=== PATIENT | male | born 1950 | race African-American/Black ===

== ENCOUNTER 2016-05-13 16:12 | Emergency (ER) | payer MEDICAID ==
[~2016-05-13] VITALS: Ht 180.3 cm; Wt 100.0 kg
[~2016-05-13 16:12] MED LIST: FLUD.1 PO; LEVO.15 PO; RISP4TAB41 PO
[2016-05-13 16:13] VITALS: BP 135/68; PULSE 96; RESP 15; TEMP 98.1; O2SAT 95
[2016-05-13] MEDS ORDERED: AMOX875T PO (16:52)
--- NOTE | 2016-05-13 16:53 | PD ---
HPI Chief Complaint: ENT Complaint Time Seen by Provider: 16:52 Travel History International Travel<30 days: No Contact w/Intl Traveler<30days: No Traveled to known affect area: No History of Present Illness HPI Patient is a 65-year-old male with chief complaint of runny nose, scratchy throat and globus sensation. He states that this began today. He states that he has runny nose and postnasal drip and physically has to clear his throat a lot. He denies difficulty swallowing or breathing or pain. He states that he feels like he has to cough up mucus up but frequently cannot get any to come out. He denies any masses in his throat or neck. He denies any chest pain, shortness of breath or wheezing. He denies stridor. He denies fever. Denies eye and ear symptoms. He denies myalgias and abdominal pain. Has a history of brain tumor resection in 2096, and full remission. PFSH Past Medical History Arthritis: Yes Asthma: No Autoimmune Disease: No Blood Disorders: No Anxiety: Yes Depression: Yes Heart Rhythm Problems: No Cancer: Yes (BRAIN TUMOR REMVD 97) Cardiac Catheterization: No Cardiovascular Problems: Yes (pacemaker) High Cholesterol: No Chemotherapy: No Chest Pain: No Congestive Heart Failure: No COPD: No Cerebrovascular Accident: Yes Diabetes: Yes Patient Takes Glucophage: No Diminished Hearing: No Endocrine: No GERD: No Glaucoma: No Genitourinary: No Headaches: Yes Hepatitis: No Hiatal Hernia: No Hypertension: No Immune Disorder: No Implanted Vascular Access Dvce: Yes Kidney Stones: No Musculoskeletal: No Neurologic: Yes Psychiatric: Yes Reproductive: No Respiratory: No Immunizations Current: Yes Migraines: No Myocardial Infarction: No Radiation Therapy: Yes Renal Failure: No Schizophrenia: Yes Seizures: No Sickle Cell Disease: No Sleep Apnea: No Thyroid Disease: No Ulcer: Yes PNEUMOCCOCAL Vaccine (Year): 3 Past Surgical History Abdominal Surgery: No AICD: No Appendectomy: Yes Arteriovenous Shunt: No Cardiac Surgery: Yes (PACEMAKER) Coronary Artery Bypass Graft: No Ear Surgery: No Endocrine Surgery: No Eye Surgery: No Genitourinary Surgery: No Gynecologic Surgery: No Insulin Pump: No Neurologic Surgery: Yes (TUMOR BRAIN) Oral Surgery: No Pacemaker: Yes Thoracic Surgery: No Tonsillectomy: Yes Family History Family Myocardial Infarction: Yes Social History Alcohol Use: No Tobacco Use: No Substance Use: No (former crack user) Allergies-Medications (Allergen,Severity, Reaction): Coded Allergies: MRI PRECAUTION (Verified Adverse Reaction, Severe, NON MRI CONDITIONAL PACEMAKER 08/24/15 KMD, 05/13/16) MIAH SAMUEL DR PACEMAKER IMPLANTED 12/15/2008 Reported Meds & Prescriptions Reported Meds & Active Scripts Active Amoxicillin 875 Mg Tab 875 Mg PO BID Synthroid (Levothyroxine Sodium) 150 Mcg Tab 150 Mcg PO DAILY@0600 Fludrocortisone (Fludrocortisone Acetate) 0.1 Mg Tab 0.2 Mg PO DAILY Reported Risperdal (Risperidone) 4 Mg Tab 2 Mg PO HS Review of Systems Except as stated in HPI: all other systems reviewed are Neg Physical Exam Narrative GENERAL: Well-developed and well-nourished adult male in no acute distress. SKIN: Warm and dry. Good turgor without tenting. HEAD: Normocephalic and atraumatic. EYES: PERRL bilaterally, 5mm. EOMI bilaterally. No injection or icterus present. No proptosis. Lids without edema or erythema. ENT: Nasal mucosa erythematous and edematous with moderate amount of clear discharge, septum intact and midline. Buccal mucosa pink and moist. Oropharynx free of erythema, tonsillar hypertrophy, masses, swelling, asymmetry and exudates. Uvula midline and airway patent. NECK: Supple, no midline tenderness, crepitus or step-offs. No meningeal signs. No masses or induration palpated. Trachea midline, no JVD. No cervical or facial lymphadenopathy. CARDIOVASCULAR: Regular rate and rhythm without murmurs, rubs, clicks or gallops. Radial pulses 2+ bilaterally. RESPIRATORY: Clear to auscultation bilaterally with symmetrical rise and fall, no distress or use of accessory muscles. Speaks in full sentences. No stridor , tripoding or drooling. GASTROINTESTINAL: Non-tender, non-distended. Normal bowel sounds all 4 quadrants. No masses or organomegaly present. MUSCULOSKELETAL: Patient freely moving all four extremities spontaneously. Extremities without clubbing, cyanosis, or edema. No obvious deformities. NEUROLOGIC: CN II-XII grossly intact. Awake and alert. Motor grossly within normal limits. Normal speech. PSYCHIATRIC: Appropriate mood and affect; insight and judgment normal. Data Data Last Documented VS Vital Signs Date Time Temp Pulse Resp B/P Pulse Ox O2 Delivery O2 Flow Rate FiO2 05/13/16 16:13 98.1 96 15 135/68 95 [facility] Medical Decision Making Medical Screen Exam Complete: Yes Emergency Medical Condition: Yes Differential Diagnosis Rhinitis versus pharyngitis versus laryngitis Narrative Course Patient is a 65-year-old male presenting with globus sensation in and need to clear his throat frequently along with rhinorrhea, post nasal drip. This began this morning. As small amount of clear to white amounts are spit up. He feels like he has been able to fully clear. He denies difficulty swallowing or breathing however. He also has runny nose, postnasal drip and scratchy throat. On exam the oropharynx is unremarkable. He has no stridor and can clear her secretions. He is afebrile nontoxic appearing. Has no evidence of any mass on his neck at this time. At this time this is likely rhinitis and pharyngitis with resultant postnasal drip. We'll give patient amoxicillin and recommend OTC Mucinex.See discharge paperwork for further instructions. The plan was discussed with the patient who acknowledged their understanding and agreement. Reinforced the follow-up with primary care is critically important. Patient instructed on emergent conditions that should prompt return to ED. Diagnosis Primary Impression: Rhinitis Qualified Code: J31.0 - Rhinitis, unspecified type Additional Impression: Pharyngitis Qualified Code: J02.9 - Pharyngitis, unspecified etiology Patient Instructions: General Instructions Additional Instructions: Take medications as prescribed Recommend drinking lots of fluids to stay well-hydrated Recommend OTC Mucinex to help clear secretions Follow-up with your PCP tomorrow Return to the ED for any acute worsening of symptoms Med/Other Pt SpecificInfo: Prescription(s) given Scripts Amoxicillin 875 Mg Lob457 Mg PO BID #20 TAB Prov:Adi Ramsay MD 05/13/16 Disposition: 01 DISCHARGE HOME Condition: Stable Gurpreet Denton III May 13, 2016 16:53
== END 2016-05-13 17:54 | disposition home or self-care (01) ==
LOC: NEPB 16:12
DX: J31.0 Chronic rhinitis (principal); J02.9 Acute pharyngitis, unspecified
CPT/HCPCS: 99282

== ENCOUNTER 2016-07-03 11:06 | Observation (INO) | payer MEDICAID ==
[~2016-07-03] VITALS: Ht 177.8 cm; Wt 89.0 kg
[2016-07-03] VITALS (9 sets, daily range): BP systolic 73–132; BP diastolic 47–78; PULSE 61–88; RESP 14–18; TEMP 95.3–98.4; O2SAT 96–99
[~2016-07-03 11:06] MED LIST changes: +AMOX875T PO
--- NOTE | 2016-07-03 13:17 | PD ---
HPI Chief Complaint: Pain: Acute or Chronic Time Seen by Provider: 13:05 Travel History International Travel<30 days: No Contact w/Intl Traveler<30days: No Traveled to known affect area: No History of Present Illness HPI 65-year-old male complains of right-sided chest pain and left knee pain. Patient states that he started having pain and swelling left knee. The past 2 weeks. Patient states the pain is worse today. Patient denies any injury to left knee. Patient has history of arthritis left knee in the past. Patient started having left-sided chest discomfort this morning. Patient states that the chest pain as tightness intermittent overlies left chest occasionally radiation to left-sided neck. Patient denies any coughing congestion fever chills. Patient states that he has some palpitation this morning. Patient denies any diaphoresis. Patient has history of pacemaker placement, borderline diabetes, hypothyroidism. Patient has family history of cardiac disease. Patient has history of schizophrenia, bradycardia, orthostatic hypotension and Pituitary adenoma. PFSH Past Medical History Arthritis: Yes Asthma: No Autoimmune Disease: No Blood Disorders: No Anxiety: Yes Depression: Yes Heart Rhythm Problems: No Cancer: Yes (BRAIN TUMOR REMVD 97) Cardiac Catheterization: No Cardiovascular Problems: Yes (pacemaker) High Cholesterol: No Chemotherapy: No Chest Pain: Yes Congestive Heart Failure: No COPD: No Cerebrovascular Accident: Yes Diabetes: Yes Diminished Hearing: No Endocrine: No GERD: No Glaucoma: No Genitourinary: No Headaches: Yes Hepatitis: No Hiatal Hernia: No Hypertension: No Immune Disorder: No Implanted Vascular Access Dvce: Yes Kidney Stones: No Musculoskeletal: No Neurologic: Yes Psychiatric: Yes Reproductive: No Respiratory: No Immunizations Current: Yes Migraines: No Myocardial Infarction: No Radiation Therapy: Yes Renal Failure: No Schizophrenia: Yes Seizures: No Sickle Cell Disease: No Sleep Apnea: No Thyroid Disease: No Ulcer: Yes PNEUMOCCOCAL Vaccine (Year): 3 Past Surgical History Abdominal Surgery: No AICD: No Appendectomy: Yes Arteriovenous Shunt: No Cardiac Surgery: Yes (PACEMAKER) Coronary Artery Bypass Graft: No Ear Surgery: No Endocrine Surgery: No Eye Surgery: No Genitourinary Surgery: No Gynecologic Surgery: No Insulin Pump: No Neurologic Surgery: Yes (TUMOR BRAIN) Oral Surgery: No Pacemaker: Yes Thoracic Surgery: No Tonsillectomy: Yes Social History Alcohol Use: No Tobacco Use: No Substance Use: No Allergies-Medications (Allergen,Severity, Reaction): Coded Allergies: MRI PRECAUTION (Verified Adverse Reaction, Severe, NON MRI CONDITIONAL PACEMAKER 08/24/15 KMD, 07/03/16) MIAH SAMUEL DR PACEMAKER IMPLANTED 12/15/2008 Reported Meds & Prescriptions Reported Meds & Active Scripts Active Synthroid (Levothyroxine Sodium) 150 Mcg Tab 150 Mcg PO DAILY@0600 Fludrocortisone (Fludrocortisone Acetate) 0.1 Mg Tab 0.2 Mg PO DAILY Reported Risperdal (Risperidone) 4 Mg Tab 2 Mg PO HS Review of Systems General / Constitutional: No: Fever Eyes: No: Visual changes HENT: No: Headaches Cardiovascular: Positive: Chest Pain or Discomfort Respiratory: No: Shortness of Breath Gastrointestinal: No: Abdominal Pain Genitourinary: No: Dysuria Musculoskeletal: Positive: Pain Skin: No Rash Neurologic: No: Weakness Psychiatric: No: Depression Endocrine: No: Polydipsia Hematologic/Lymphatic: No: Easy Bruising Physical Exam Narrative GENERAL: Well-nourished, well-developed patient. SKIN: Warm and dry. HEAD: Normocephalic. EYES: No scleral icterus. No injection or drainage. NECK: Supple, trachea midline. No JVD or lymphadenopathy. CARDIOVASCULAR: Regular rate and rhythm without murmurs, gallops, or rubs. RESPIRATORY: Breath sounds equal bilaterally. No accessory muscle use. GASTROINTESTINAL: Abdomen soft, non-tender, nondistended. MUSCULOSKELETAL: Mild diffuse tenderness over the left knee joint. Full range of motion of the left knee joint. Knee joints stable. Moderate effusion noted. No redness no heat noted. BACK: Nontender without obvious deformity. No CVA tenderness. Neurologic exam normal. Data Data Last Documented VS Vital Signs Date Time Temp Pulse Resp B/P Pulse Ox O2 Delivery O2 Flow Rate FiO2 07/03/16 14:10 115/55 07/03/16 14:09 97 Room Air 07/03/16 12:21 66 18 07/03/16 11:07 98.4 Orders Electrocardiogram (07/03/16 ) Vascular Access Team Consult PRN (07/03/16 13:01) Complete Blood Count With Diff (07/03/16 13:11) Comprehensive Metabolic Panel (07/03/16 13:11) Creatine Kinase (Cpk) (07/03/16 13:11) Troponin I (07/03/16 13:11) Prothrombin Time / Inr (Pt) (07/03/16 13:11) Act Partial Throm Time (Ptt) (07/03/16 13:11) Thyroid Stimulating Hormone (07/03/16 13:11) Chest, Single Ap (07/03/16 13:11) Iv Access Insert/Monitor (07/03/16 13:11) Ecg Monitoring (07/03/16 13:11) Oximetry (07/03/16 13:11) Knee, Ltd (1 Or 2vws) (07/03/16 13:11) Vascular Poc Ultrasound (07/03/16 ) Labs Laboratory Tests Test 07/03/16 14:28 White Blood Count 5.8 TH/MM3 Red Blood Count 3.92 MIL/MM3 Hemoglobin 10.9 GM/DL Hematocrit 31.8 % Mean Corpuscular Volume 81.0 FL Mean Corpuscular Hemoglobin 27.8 PG Mean Corpuscular Hemoglobin 34.4 % Concent Red Cell Distribution Width 14.5 % Platelet Count 176 TH/MM3 Mean Platelet Volume 9.0 FL Neutrophils (%) (Auto) 37.0 % Lymphocytes (%) (Auto) 54.9 % Monocytes (%) (Auto) 6.5 % Eosinophils (%) (Auto) 1.3 % Basophils (%) (Auto) 0.3 % Neutrophils # (Auto) 2.2 TH/MM3 Lymphocytes # (Auto) 3.2 TH/MM3 Monocytes # (Auto) 0.4 TH/MM3 Eosinophils # (Auto) 0.1 TH/MM3 Basophils # (Auto) 0.0 TH/MM3 CBC Comment DIFF FINAL Differential Comment Prothrombin Time 12.0 SEC Prothromb Time International 1.1 RATIO Ratio Activated Partial 31.9 SEC Thromboplast Time Sodium Level 141 MEQ/L Potassium Level 3.4 MEQ/L Chloride Level 105 MEQ/L Carbon Dioxide Level 27.1 MEQ/L Anion Gap 9 MEQ/L Blood Urea Nitrogen 7 MG/DL Creatinine 0.54 MG/DL Estimat Glomerular Filtration 186 ML/MIN Rate Random Glucose 88 MG/DL Calcium Level 9.1 MG/DL Total Bilirubin 0.4 MG/DL Aspartate Amino Transf 18 U/L (AST/SGOT) Alanine Aminotransferase 19 U/L (ALT/SGPT) Alkaline Phosphatase 44 U/L Total Creatine Kinase 104 U/L Troponin I LESS THAN 0.02 NG/ML Total Protein 7.5 GM/DL Albumin 3.8 GM/DL Thyroid Stimulating Hormone 0.283 uIU/ML 3rd Gen [facility] Medical Decision Making Medical Screen Exam Complete: Yes Emergency Medical Condition: Yes Interpretation(s) EKG show pacer rhythm. 1556 PM. Chest x-ray shows no acute consolidation. Left knee x-ray shows soft tissue swelling and joint effusion. DJD changes. CBC within normal limit. Potassium 3.4. Creatinine 0.54. Cardiac enzymes are normal. TSH 0.283. Differential Diagnosis Differential diagnosis including atypical chest pain, angina, ME, PE, pneumothorax, left knee arthritis, fracture, dislocation. Narrative Course 65-year-old male with left-sided chest pain and left knee pain and swelling. Decadron 4 mg IV. Aspirin 325 g by mouth. Patient will be admitted to the chest pain center. Diagnosis Primary Impression: Chest pain Qualified Code: R07.9 - Chest pain, unspecified type Additional Impression: Effusion, left knee Admitting Information Admitting Physician Requests: Observation Ryder Miller MD Jul 03, 2016 13:17
--- NOTE | 2016-07-03 14:03 | RADRPT ---
EXAM DATE/TIME: 07/03/2016 13:44 [facility] COMPARISON: No previous studies available for comparison. INDICATIONS : Knee pain MEDICAL HISTORY : Cardiovascular disease. SURGICAL HISTORY : Brain tumor resection ENCOUNTER: Initial ACUITY: 1 day PAIN SCORE: 6/10 LOCATION: Left Knee FINDINGS: Two view examination of the left knee demonstrates no evidence of fracture or dislocation. There is a joint effusion. Soft tissue swelling anteriorly. Moderate bony degenerative changes. The suprapate llar soft tissues have a normal configuration. CONCLUSION: 1. Soft tissue swelling and joint effusion. 2. Moderate degenerative changes. Griffin Lam MD on July 03, 2016 at 14:01 Board Certified Radiologist. This report was verified electronically.
--- NOTE | 2016-07-03 14:04 | RADRPT ---
EXAM DATE/TIME: 07/03/2016 13:41 [facility] COMPARISON: CHEST SINGLE AP, August 24, 2015, 13:48. INDICATIONS : Chest pain MEDICAL HISTORY : Cardiovascular disease. Brain tumor SURGICAL HISTORY : Brain tumor resection ENCOUNTER: Initial ACUITY: 1 day PAIN SCORE: 5/10 LOCATION: chest FINDINGS: A single view of the chest demonstrates the lungs to be symmetrically aerated without evidence of mas s, infiltrate or effusion. The cardiomediastinal contours are unremarkable. Osseous structures are intact. Left-sided pacemaker with intact leads. CONCLUSION: No acute disease. Griffin Lam MD on July 03, 2016 at 14:02 Board Certified Radiologist. This report was verified electronically.
[2016-07-03 14:45] LABS: AUTOMATED NEUTROPHIL # 2.2 TH/MM3 (1.8-7.7); BASOPHIL % 0.3 % (0.0-2.0); EOSINOPHIL # 0.1 TH/MM3 (0-0.4); EOSINOPHIL % 1.3 % (0.0-4.0); HEMATOCRIT 31.8 % (39.0-51.0); HEMO FLAGS DIFF FINAL; LYMPH % 54.9 % (9.0-44.0); LYMPHOCYTE # 3.2 TH/MM3 (1.0-4.8); MEAN CORPUSCULAR HEMOGLOBIN 27.8 PG (27.0-34.0); MEAN CORPUSCULAR HGB CONC 34.4 % (32.0-36.0); MONO % 6.5 % (0.0-8.0); PLATELET COUNT 176 TH/MM3 (150-450); RED BLOOD COUNT 3.92 MIL/MM3 (4.50-5.90); RED CELL DISTRIBUTION WIDTH 14.5 % (11.6-17.2); WHITE BLOOD COUNT 5.8 TH/MM3 (4.0-11.0)
[2016-07-03 15:01] LABS: ANION GAP 9 MEQ/L (5-15); AST (GOT) 18 U/L (15-37); BICARBONATE 27.1 MEQ/L (21.0-32.0); BLOOD UREA NITROGEN 7 MG/DL (7-18); CHLORIDE 105 MEQ/L (98-107); GLOMERULAR FILTRATION RATE 186 ML/MIN (>89); POTASSIUM 3.4 MEQ/L (3.5-5.1); SODIUM (NA) 141 MEQ/L (136-145)
[2016-07-03 15:05] LABS: APTT (PATIENT) 31.9 SEC (24.3-30.1); INTERNATIONAL NORMALIZED RATIO 1.1 RATIO
[2016-07-03 15:11] LABS: ALKALINE PHOSPHATASE 44 U/L (45-117); ALT (GPT) 19 U/L (12-78); CREATINE KINASE 104 U/L (39-308); TOTAL BILIRUBIN ADULT 0.4 MG/DL (0.2-1.0)
[2016-07-03] MEDS ORDERED: NITROGLYCERIN 0.4 MG SL 25 TABS/BTL SL PRN (16:15)
[2016-07-03] MEDS ORDERED: KETOROLAC TROMETHAMINE 30 MG/ML (IVP) VIAL IV PUSH ONE (16:15)
[2016-07-03] MEDS ORDERED: ASPIRIN 325 MG TAB PO ONE (16:15)
[2016-07-03] MEDS ORDERED: ONDANSETRON HCL 4 MG/2 ML VIAL IV PRN (16:15)
[2016-07-03] MEDS ORDERED: DEXAMETHASONE SOD PHOS 4 MG/ML VIAL IV PUSH ONE (16:15)
[2016-07-03] MEDS ORDERED: SODIUM CHLORIDE 0.9% FLUSH 5 ML FLUSH IVF PRN (16:15)
[2016-07-03] MEDS ORDERED: ACETAMINOPHEN 500 MG CPLT PO PRN (16:15)
--- NOTE | 2016-07-03 17:15 | HHI.HP ---
[facility] Primary Care Physician Jessica Reyes MD Chief Complaint Chest and left knee pain History of Present Illness This is a 65-year-old male that presents to ED complaining of a right-sided chest pain and left knee pain. He has been bothering for couple weeks. Denies trauma. Denies calf pain or swelling. The chest discomfort began this morning. Is a tightness. Denies radiation. Found nothing to worsen or improve the discomfort. He doesn't recall how long the discomfort lasted but states it is gone at this time. Denies history of CAD but states he has a pacemaker. His last stress test at this hospital was in 2012 was nonischemic. 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 Cardiovascular: Has the chest discomfort as mentioned above. Denies sensation of heart beating rapidly or irregularly. No syncope. Denies diaphoresis. Respiratory: Denies shortness of breath or inspirational chest discomfort. Denies coughing wheezing or hemoptysis. GI: Patient denies nausea, vomiting, diarrhea, abdominal pain, bloody stools. Musculoskeletal: Complains of left knee pain and swelling for 2 weeks. Denies trauma. Denies calf pain or edema. Neurovascular: Patient denies numbness, tingling, weakness in extremities. Denies headache. Endocrine: Denies polyuria and polydipsia. Hematologic: Denies easy bruising. Skin: Denies rash or itching. Past Family Social History Allergies: Coded Allergies: MRI PRECAUTION (Verified Adverse Reaction, Severe, NON MRI CONDITIONAL PACEMAKER 08/24/15 KMD, 07/03/16) MEDHONORIO SAMUEL DR PACEMAKER IMPLANTED 12/15/2008 Past Medical History Pacemaker, ranging tumor that was removed and 97. Hypothyroidism. Schizophrenia.. Past Surgical History Brain tumor removed. Appendectomy. Pacemaker. Tonsillectomy. Reported Medications Reported Meds & Active Scripts Active Synthroid (Levothyroxine Sodium) 150 Mcg Tab 150 Mcg PO DAILY@0600 Fludrocortisone (Fludrocortisone Acetate) 0.1 Mg Tab 0.2 Mg PO DAILY Reported Risperdal (Risperidone) 4 Mg Tab 2 Mg PO HS Active Ordered Medications Current Medications Medications (Trade) Dose Ordered Sig/Albert Route Start Time Stop Time Status Last Admin (NS Flush) 2 ml UNSCH PRN IVF 07/03/16 16:15 (NS Flush) 2 ml BID IVF 07/03/16 21:00 (Tylenol) 500 mg Q4H PRN PO 07/03/16 16:15 (Zofran Inj) 4 mg Q6H PRN IV 07/03/16 16:15 (Nitrostat Sl) 0.4 mg Q5M PRN SL 07/03/16 16:15 Family History He is unaware family history of CAD. Social History Denies tobacco abuse,, alcohol use, and illicit drugs. Physical Exam Vital Signs Vital Signs Date Time Temp Pulse Resp B/P Pulse Ox O2 Delivery O2 Flow Rate FiO2 07/03/16 16:14 66 18 132/67 98 Room Air 07/03/16 14:10 115/55 07/03/16 14:09 97 Room Air 07/03/16 12:21 66 18 107/67 99 Room Air 07/03/16 12:00 73 14 73/47 07/03/16 11:07 98.4 73 16 109/57 98 Physical Exam GENERAL: This is a well-nourished, well-developed patient, in no apparent distress. Patient speaks in clear complete sentences. Patient is pleasant. HEENT: Head is atraumatic and normocephalic. Neck is supple without lymphadenopathy and trachea is midline. No JVD or carotid bruits. CARDIOVASCULAR: Regular rate and rhythm without murmurs, gallops, or rubs. RESPIRATORY: Clear to auscultation. Breath sounds equal bilaterally. No wheezes , rales, or rhonchi. Chest wall is nontender. No use of accessory muscles. GASTROINTESTINAL: Abdomen is nontender, nondistended. Abdomen soft. No obvious pulsatile mass or bruit. No CVA tenderness. Strong femoral pulses bilaterally. Normal bowel sounds in all quadrants. MUSCULOSKELETAL: There is discomfort with range of motion of his left knee. There is some soft tissue swelling anteriorly. No warmth. Patient is moving upper extremities freely. No calf tenderness or edema, no Homans sign. Strong pulses in upper and lower extremities. NEUROLOGICAL: Patient is alert and oriented. Cranial nerves 2-12 are grossly intact. No focal deficits and speech is clear. SKIN: No rash and turgor is normal. Laboratory Laboratory Tests Test 07/03/16 14:28 White Blood Count 5.8 Red Blood Count 3.92 Hemoglobin 10.9 Hematocrit 31.8 Mean Corpuscular Volume 81.0 Mean Corpuscular Hemoglobin 27.8 Mean Corpuscular Hemoglobin 34.4 Concent Red Cell Distribution Width 14.5 Platelet Count 176 Mean Platelet Volume 9.0 Neutrophils (%) (Auto) 37.0 Lymphocytes (%) (Auto) 54.9 Monocytes (%) (Auto) 6.5 Eosinophils (%) (Auto) 1.3 Basophils (%) (Auto) 0.3 Neutrophils # (Auto) 2.2 Lymphocytes # (Auto) 3.2 Monocytes # (Auto) 0.4 Eosinophils # (Auto) 0.1 Basophils # (Auto) 0.0 CBC Comment DIFF FINAL Differential Comment Prothrombin Time 12.0 Prothromb Time International 1.1 Ratio Activated Partial 31.9 Thromboplast Time Sodium Level 141 Potassium Level 3.4 Chloride Level 105 Carbon Dioxide Level 27.1 Anion Gap 9 Blood Urea Nitrogen 7 Creatinine 0.54 Estimat Glomerular Filtration 186 Rate Random Glucose 88 Calcium Level 9.1 Total Bilirubin 0.4 Aspartate Amino Transf 18 (AST/SGOT) Alanine Aminotransferase 19 (ALT/SGPT) Alkaline Phosphatase 44 Total Creatine Kinase 104 Troponin I LESS THAN 0.02 Total Protein 7.5 Albumin 3.8 Thyroid Stimulating Hormone 0.283 3rd Gen Result Diagram: 07/03/16 1428 07/03/16 1428 Imaging Single view chest x-ray has been read by radiologist as no acute disease. There is a left-sided pacemaker x-ray of the left knee read by radiologist as # 1 soft tissue swelling and joint effusion. #2 moderate degenerative changes. Course Initial EKG is atrial paced. Assessment and Plan Assessment and Plan * Chest pain: Patient will continue to have serial cardiac enzymes and EKGs for ruling out purposes. He has been seen by Dr. Christopher cardiology and the chest pain center and will undergo a Lexiscan in the morning if he rules out. He would likely be discharged home if his stress test were to be nonischemic. * Left knee effusion: Ice and elevation. He will need to follow-up with orthopedist. He should discuss this with his primary care physician. * Hypothyroidism: Patient's TSH is somewhat low at 0.283. We'll hold the Synthroid tomorrow and he should discuss with his physician. * Schizophrenia: Continue current medication. Raymundo Solares Jul 03, 2016 17:15
[2016-07-03 19:06] LABS: CREATINE KINASE 124 U/L (39-308)
[2016-07-03 19:22] LABS: CKMB LESS THAN 0.5 NG/ML (0.5-3.6)
[2016-07-03] MEDS: SODIUM CHLORIDE 0.9% FLUSH 5 ML FLUSH IVF SCH (20:50)
[2016-07-03] MEDS ORDERED: risperiDONE 1 MG TAB PO SCH (21:00)
[2016-07-03] MEDS ORDERED: RISPERIDONE 2 MG PO SCH (21:00)
[2016-07-03 21:50] LABS: CREATINE KINASE 114 U/L (39-308)
[2016-07-03 22:07] LABS: CKMB LESS THAN 0.5 NG/ML (0.5-3.6)
[2016-07-04 00:49] VITALS: BP 121/74; PULSE 82; RESP 18; TEMP 97.8; O2SAT 97
[2016-07-04 03:25] VITALS: BP 124/82; PULSE 86; RESP 18; TEMP 97.7; O2SAT 97
[2016-07-04] MEDS ORDERED: POTASSIUM CHLORIDE 25 MEQ EFFERVESCENT TAB PO ONE (07:15)
[2016-07-04 07:16] VITALS: BP 113/63; PULSE 63; RESP 18; TEMP 95.5; O2SAT 93
[2016-07-04] MEDS: SODIUM CHLORIDE 0.9% FLUSH 5 ML FLUSH IVF SCH (07:46)
[2016-07-04] MEDS ORDERED: FLUDROCORTISONE ACETATE 0.1 MG TAB PO SCH (09:00)
[2016-07-04 09:04] VITALS: PULSE 98
[2016-07-04] MEDS ORDERED: REGADENOSON INJ 0.4 MG/5 ML SYR ONE (11:01)
[2016-07-04 15:14] VITALS: BP 111/67; PULSE 61; RESP 18; TEMP 99.2; O2SAT 100
--- NOTE | 2016-07-04 15:41 | RADRPT ---
EXAM DATE/TIME: 07/04/2016 10:56 [facility] COMPARISON: MYOCARDIAL PERF PHARM SPECT, GATED W/EF, October 15, 2012, 9:16. INDICATIONS : Right sided chest pain. Angina. DOSE: 26.1 mCi Tc99m Myoview at stress. 8.1 mCi Tc99m Myoview at rest. 0.4 mg Lexiscan STRESS SYMPTOMS: Shortness of breath. EJECTION FRACTION: > 70% MEDICAL HISTORY : Hypertension. Hypothyroidism. Schizophrenia. SURGICAL HISTORY : Tonsillectomy. Appendectomy. Pacemaker. Brain tumor removal. ENCOUNTER: Initial ACUITY: 1 day PAIN SCALE: 6/10 LOCATION: Right chest TECHNIQUE: The patient underwent pharmacologic stress with infusion of prescribed dose. Continuous ECG tracing was monitored during stress. Gated SPECT imaging was performed after stress and conventional SPECT i maging was performed at rest. The examination was performed on a SPECT/CT scanner, both attenuation and non-corrected datasets were reviewed. FINDINGS: DISTRIBUTION: The maximum perfused segment at stress is in the septal wall. PERFUSION STUDY: There appears to be a small area of ischemia at the apex. On the non-attenuation corrected images, th ere appears to be an area of ischemia at the apical portion of the inferior wall near the septum. Thi s is less apparent on the attenuation corrected images. GATED STUDY: There is intact wall motion and thickening without hypokinetic or dyskinetic segments. CONCLUSION: Possible ischemia at the apex and at the septal portion of the inferior wall. RISK CATEGORY: Intermediate (1-3% Annual Mortality Rate) Gurpreet Lee MD on July 04, 2016 at 15:32 Board Certified Radiologist. This report was verified electronically.
--- NOTE | 2016-07-04 16:37 | TR ---
Date Performed: 07/04/2016 Time Performed: 14:25:10 DOCTOR: Rubi Christopher DRUG LIST: CLINICAL HISTORY: ANGINA REASON FOR TEST: Angina REASON FOR ENDING: OBSERVATION: CONCLUSION: Lexiscan stress test was performed under standard four minute protocol. Radionuclid e was injected one minute prior to ending the test. No electrocardiographic abormalities were present to suggest ischemia. Nuclear imaging and interpretation are pending. COMMENTS:
--- NOTE | 2016-07-04 16:37 | HHI.DCPOC ---
Discharge Care Plan Diagnosis: (1) Chest pain (2) Pacemaker (3) Hypothyroidism (acquired) Goals to Promote Your Health * To prevent worsening of your condition and complications * To maintain your health at the optimal level Directions to Meet Your Goals Take your medications as prescribed Follow your dietary instruction Follow activity as directed Keep your appointments as scheduled Take your immunizations and boosters as scheduled If your symptoms worsen call your PCP, if no PCP go to Urgent Care Center or Emergency Room Smoking is Dangerous to Your Health. Avoid second hand smoke Call the 24-hour hour crisis hotline for domestic abuse at Raymundo Solares Jul 04, 2016 16:37
--- NOTE | 2016-07-04 16:40 | EKG ---
Date Performed: 07/03/2016 Time Performed: 21:24:55 PTAGE: 65 years EKG: ELECTRONIC ATRIAL PACEMAKER ST DEVIATION AND MODERATE T-WAVE ABNORMALITY, CONSIDER ANTERIOR ISCHEMIA ABNORMAL ECG Since PREVIOUS TRACING , no significant change noted PREVIOUS TRACIN07/03/2016 14.24 DOCTOR: Rubi Christopher Interpretating Date/Time 07/04/2016 16:39:50
--- NOTE | 2016-07-04 20:18 | EKG ---
Date Performed: 07/03/2016 Time Performed: 14:24:18 PTAGE: 65 years EKG: ELECTRONIC ATRIAL PACEMAKER NONSPECIFIC T-WAVE ABNORMALITY ABNORMAL RHYTHM ECG PREVIOUS TRACING : 04/14/2016 09.59 Compared to prior tracing no significant change DOCTOR: Yissel Rooney Interpretating Date/Time 07/04/2016 20:17:28
--- NOTE | 2016-07-04 20:29 | EKG ---
Date Performed: 07/03/2016 Time Performed: 12:05:21 PTAGE: 65 years EKG: ELECTRONIC ATRIAL PACEMAKER ELECTRONIC VENTRICULAR PACEMAKER NONSPECIFIC T-WAVE ABNORMALITY ABNORMAL RHYTHM ECG Compared to the PREVIOUS TRACING V pacing present DOCTOR: Yissel Rooney Interpretating Date/Time 07/04/2016 20:27:04
== END 2016-07-04 18:30 | disposition home or self-care (01) ==
LOC: NEPA 11:06 → NEDA 16:13 → NEPGCP 17:04
PROVIDERS: ADMIT Internal Medicine Interventional Cardiology; ATTEND Internal Medicine Interventional Cardiology
DX: R07.89 Other chest pain (principal); M25.462 Effusion, left knee; F20.9 Schizophrenia, unspecified; E03.9 Hypothyroidism, unspecified; F41.9 Anxiety disorder, unspecified; F32.9 Major depressive disorder, single episode, unspecified; E11.9 Type 2 diabetes mellitus without complications; M17.12 Unilateral primary osteoarthritis, left knee; Z95.0 Presence of cardiac pacemaker; Z86.73 Personal history of transient ischemic attack (TIA), and cerebral infarction without residual deficits; Z85.841 Personal history of malignant neoplasm of brain; Z79.52 Long term (current) use of systemic steroids
CPT/HCPCS: 71010; 73560; 76937; 78452; 80053; 82550; 82552; 84443; 84484; 85025; 85610; 85730; 93005; 93017; 96374; 96375; 99285; A9502; G0378; J1100; J1885; J2785

== ENCOUNTER 2016-09-05 22:46 | Emergency (ER) | payer MEDICAID ==
[~2016-09-05] VITALS: Ht 177.8 cm; Wt 88.0 kg
[~2016-09-05 22:46] MED LIST changes: -AMOX875T PO
[2016-09-05 22:50] VITALS: BP 109/58; PULSE 75; RESP 15; TEMP 97.8; O2SAT 100
[2016-09-06] MEDS ORDERED: DILT180C56 PO (00:47)
[2016-09-06] MEDS ORDERED: LEVO137T2 PO (00:47)
[2016-09-06] MEDS ORDERED: FLUT50SP EACH NARE (00:47)
[2016-09-06 00:49] VITALS: BP 96/53; PULSE 62; RESP 18; O2SAT 100
[2016-09-06] MEDS ORDERED: diphenhydrAMINE HCL 50 MG/ML VIAL IVP ONE (01:00)
[2016-09-06] MEDS ORDERED: SODIUM CHLORIDE 0.9% FLUSH 10 ML FLUSH IVF PRN (01:00)
[2016-09-06] MEDS ORDERED: PROCHLORPERAZINE INJ 10 MG/2 ML VIAL IVP ONE (01:00)
[2016-09-06 01:38] LABS: AUTOMATED NEUTROPHIL # 1.8 TH/MM3 (1.8-7.7); BASOPHIL % 0.4 % (0.0-2.0); EOSINOPHIL # 0.1 TH/MM3 (0-0.4); EOSINOPHIL % 1.2 % (0.0-4.0); HEMATOCRIT 33.3 % (39.0-51.0); HEMO FLAGS DIFF FINAL; LYMPH % 57.2 % (9.0-44.0); LYMPHOCYTE # 3.1 TH/MM3 (1.0-4.8); MEAN CORPUSCULAR HEMOGLOBIN 26.5 PG (27.0-34.0); MEAN CORPUSCULAR HGB CONC 32.7 % (32.0-36.0); NEUT % 33.2 % (16.0-70.0); PLATELET COUNT 140 TH/MM3 (150-450); RED BLOOD COUNT 4.11 MIL/MM3 (4.50-5.90); RED CELL DISTRIBUTION WIDTH 15.7 % (11.6-17.2); WHITE BLOOD COUNT 5.3 TH/MM3 (4.0-11.0)
[2016-09-06 01:45] VITALS: BP 100/59; PULSE 91; RESP 18; O2SAT 98
[2016-09-06 01:55] LABS: ANION GAP 7 MEQ/L (5-15); AST (GOT) 30 U/L (15-37); BICARBONATE 27.8 MEQ/L (21.0-32.0); BLOOD UREA NITROGEN 12 MG/DL (7-18); CHLORIDE 103 MEQ/L (98-107); GLOMERULAR FILTRATION RATE 138 ML/MIN (>89); POTASSIUM 3.4 MEQ/L (3.5-5.1); SODIUM (NA) 138 MEQ/L (136-145)
[2016-09-06 02:03] LABS: ALKALINE PHOSPHATASE 56 U/L (45-117); ALT (GPT) 30 U/L (12-78); TOTAL BILIRUBIN ADULT 0.3 MG/DL (0.2-1.0)
--- NOTE | 2016-09-06 02:54 | RADRPT ---
EXAM DATE/TIME: 09/06/2016 02:32 [facility] COMPARISON: CT BRAIN W/O CONTRAST, April 14, 2016, 12:05. INDICATIONS : Headaches. RADIATION DOSE: 38.67 CTDIvol (mGy) MEDICAL HISTORY : Cerebrovascular disease. Cardiovascular disease Hypertension.Diabetes Suparsellar tumor SURGICAL HISTORY : Craniotomy. Pacemaker.Appendectomy. ENCOUNTER: Initial ACUITY: 1 day PAIN SCALE: 5/10 LOCATION: cranial TECHNIQUE: Multiple contiguous axial images were obtained of the head. Using automated exposure control and adj ustment of the mA and/or kV according to patient size, radiation dose was kept as low as reasonably a chievable to obtain optimal diagnostic quality images. FINDINGS: CEREBRUM: The ventricles are normal for age. Postsurgical changes are again noted status post right frontal cr aniotomy. The previously noted suprasellar mass is stable in appearance. There is a stable area of en cephalomalacia in the right frontal lobe. Calcification is noted in both basal ganglia. There is a pr ominent cisterna magna. No evidence of midline shift, mass lesion, hemorrhage or acute infarction. N o extra-axial fluid collections are seen. POSTERIOR FOSSA: The cerebellum and brainstem are intact. The 4th ventricle is midline. The cerebellopontine angle i s unremarkable. EXTRACRANIAL: The visualized portion of the orbits is intact. SKULL: The calvaria is intact. No evidence of skull fracture. CONCLUSION: 1. No acute hemorrhage or mass effect. 2. Stable suprasellar mass. 3. Remote postsurgical changes. 4. Stable area of encephalomalacia in the right frontal lobe. Darryl Kaur MD on September 06, 2016 at 2:50 Board Certified Radiologist. This report was verified electronically.
--- NOTE | 2016-09-06 03:44 | PD ---
HPI Chief Complaint: Headache Time Seen by Provider: 00:49 Travel History International Travel<30 days: No Contact w/Intl Traveler<30days: No Traveled to known affect area: No History of Present Illness HPI Patient is a 66-year-old male with a history of pituitary adenoma presents emergency department with headache and dizziness. Patient is accompanied by a family member who states that he has had these type of episodes in the past. States that his been going on for approximately 2 weeks but they brought him in tonight because he is been more sleepy and unable to give his eyes open. The last time he was admitted for this was the time he was diagnosed with a recurrent adenoma. Patient has a history of adenoma resection. Denies any focalized weakness nausea vomiting diarrhea constipation. PFSH Past Medical History Arthritis: Yes Asthma: No Autoimmune Disease: No Blood Disorders: No Anxiety: No Depression: No Heart Rhythm Problems: Yes Cancer: No Cardiac Catheterization: No Cardiovascular Problems: Yes High Cholesterol: No Chemotherapy: No Chest Pain: Yes Congestive Heart Failure: No COPD: No Cerebrovascular Accident: Yes Diabetes: Yes Patient Takes Glucophage: No Diminished Hearing: No Endocrine: No GERD: No Glaucoma: No Genitourinary: No Headaches: Yes Hepatitis: No Hiatal Hernia: No Hypertension: Yes Immune Disorder: No Implanted Vascular Access Dvce: Yes Kidney Stones: No Musculoskeletal: No Neurologic: Yes Psychiatric: Yes Reproductive: No Respiratory: No Immunizations Current: Yes Migraines: No Myocardial Infarction: No Radiation Therapy: No Renal Failure: No Schizophrenia: Yes Seizures: No Sickle Cell Disease: No Sleep Apnea: No Thyroid Disease: No Ulcer: Yes PNEUMOCCOCAL Vaccine (Year): 3 Past Surgical History Abdominal Surgery: No AICD: No Appendectomy: Yes Arteriovenous Shunt: No Cardiac Surgery: Yes (PACEMAKER) Coronary Artery Bypass Graft: No Ear Surgery: No Endocrine Surgery: No Eye Surgery: No Genitourinary Surgery: No Gynecologic Surgery: No Insulin Pump: No Neurologic Surgery: Yes (TUMOR BRAIN) Oral Surgery: No Pacemaker: Yes Thoracic Surgery: No Tonsillectomy: Yes Other Surgery: Yes Family History Family Myocardial Infarction: Yes Social History Alcohol Use: No Tobacco Use: No Substance Use: No (former drug user) Allergies-Medications (Allergen,Severity, Reaction): Coded Allergies: MRI PRECAUTION (Verified Adverse Reaction, Severe, NON MRI CONDITIONAL PACEMAKER 08/24/15 KMD, 09/06/16) [employer]TRON[employer] JIMMIE KELLEY PACEMAKER IMPLANTED 12/15/2008 Reported Meds & Prescriptions Reported Meds & Active Scripts Active Fludrocortisone (Fludrocortisone Acetate) 0.1 Mg Tab 0.2 Mg PO DAILY Reported Diltiazem CD 24 HR 180 Mg Caper 180 Mg PO DAILY Levothyroxine (Levothyroxine Sodium) 137 Mcg Tab 137 Mcg PO DAILY Fluticasone Nasal [place] 50 Mcg/Act Naspr 50 Mcg EACH NARE BID 50 mcg/spray Risperdal (Risperidone) 4 Mg Tab 2 Mg PO HS Review of Systems Except as stated in HPI: all other systems reviewed are Neg Physical Exam Narrative GENERAL: Well-developed well-nourished no apparent distress SKIN: Focused skin assessment warm/dry. HEAD: Atraumatic. Normocephalic. There is a well-healed surgical scar on the right frontal region. EYES: Pupils equal and round. No scleral icterus. No injection or drainage. ENT: No nasal bleeding or discharge. Mucous membranes pink and moist. NECK: Trachea midline. No JVD. CARDIOVASCULAR: Regular rate and rhythm. No murmur appreciated. RESPIRATORY: No accessory muscle use. Clear to auscultation. Breath sounds equal bilaterally. GASTROINTESTINAL: Abdomen soft, non-tender, nondistended. Hepatic and splenic margins not palpable. MUSCULOSKELETAL: No obvious deformities. No clubbing. No cyanosis. No edema. NEUROLOGICAL: Awake and alert. Cranial nerves II through XII are grossly intact and nonfocal, 5 out of 5 strength in all 4 extremity's, cerebellar testing normal by finger nose finger and heel nguyen testing, and relates within even narrow based gait. PSYCHIATRIC: Appropriate mood and affect; insight and judgment normal. Data Data Last Documented VS Vital Signs Date Time Temp Pulse Resp B/P Pulse Ox O2 Delivery O2 Flow Rate FiO2 09/06/16 04:02 61 18 101/54 97 09/06/16 01:45 Room Air 09/05/16 22:50 97.8 Orders Complete Blood Count With Diff (09/06/16 00:49) Comprehensive Metabolic Panel (09/06/16 00:49) Ct Brain W/O Iv Contrast(Rout) (09/06/16 00:49) Ecg Monitoring (09/06/16 00:49) Iv Access Insert/Monitor (09/06/16 00:49) Oximetry (09/06/16 00:49) Sodium Chloride 0.9% Flush (Ns Flush) (09/06/16 01:00) Prochlorperazine Inj (Compazine Inj) (09/06/16 01:00) Diphenhydramine Inj (Benadryl Inj) (09/06/16 01:00) Labs Laboratory Tests Test 09/06/16 01:10 White Blood Count 5.3 TH/MM3 Red Blood Count 4.11 MIL/MM3 Hemoglobin 10.9 GM/DL Hematocrit 33.3 % Mean Corpuscular Volume 81.0 FL Mean Corpuscular Hemoglobin 26.5 PG Mean Corpuscular Hemoglobin 32.7 % Concent Red Cell Distribution Width 15.7 % Platelet Count 140 TH/MM3 Mean Platelet Volume 9.3 FL Neutrophils (%) (Auto) 33.2 % Lymphocytes (%) (Auto) 57.2 % Monocytes (%) (Auto) 8.0 % Eosinophils (%) (Auto) 1.2 % Basophils (%) (Auto) 0.4 % Neutrophils # (Auto) 1.8 TH/MM3 Lymphocytes # (Auto) 3.1 TH/MM3 Monocytes # (Auto) 0.4 TH/MM3 Eosinophils # (Auto) 0.1 TH/MM3 Basophils # (Auto) 0.0 TH/MM3 CBC Comment DIFF FINAL Differential Comment Sodium Level 138 MEQ/L Potassium Level 3.4 MEQ/L Chloride Level 103 MEQ/L Carbon Dioxide Level 27.8 MEQ/L Anion Gap 7 MEQ/L Blood Urea Nitrogen 12 MG/DL Creatinine 0.70 MG/DL Estimat Glomerular Filtration 138 ML/MIN Rate Random Glucose 101 MG/DL Calcium Level 9.6 MG/DL Total Bilirubin 0.3 MG/DL Aspartate Amino Transf 30 U/L (AST/SGOT) Alanine Aminotransferase 30 U/L (ALT/SGPT) Alkaline Phosphatase 56 U/L Total Protein 7.8 GM/DL Albumin 4.1 GM/DL MDM Medical Decision Making Medical Screen Exam Complete: Yes Emergency Medical Condition: Yes Differential Diagnosis Vertigo, headache, mass effect seems unlikely, acute stroke seems highly unlikely. Narrative Course Patient roomed emergency department, he was given Benadryl Compazine and was sleeping soundly on my reassessment. States his headache was feeling better but still somewhat pleasant. CT head was no change from his previous: Last [address] 09/06/16 0049 Signed Impressions: Service Date/Time: August 02:32 - CONCLUSION: 1. No acute hemorrhage or mass effect. 2. Stable suprasellar mass. 3. Remote postsurgical changes. 4. Stable area of encephalomalacia in the right frontal lobe. Darryl Kaur MD Blood work was reassuring. Discussed with the patient and his family member the above findings and I am reassured by them. The patient was admitted for similar last year when he had diagnosis of recurrent adenoma. Was recommended that time that he have an MRI however he cannot have MRI secondary to having a pacemaker in place. I discussed that it is my impression that he is stable for going home and following up with his neurologist and primary care physician they 're agreeable to this. Discussed return to ED criteria. Diagnosis Primary Impression: Headache Additional Impression: Dizziness Disposition: 01 DISCHARGE HOME Condition: Stable Adi Ramsay MD September 06, 2016 03:44
[2016-09-06 04:02] VITALS: BP 101/54; PULSE 61; RESP 18; O2SAT 97
== END 2016-09-06 04:16 | disposition home or self-care (01) ==
LOC: NEPC 22:46
DX: R51 Headache (principal); R42 Dizziness and giddiness; E11.9 Type 2 diabetes mellitus without complications; I10 Essential (primary) hypertension; Z86.69 Personal history of other diseases of the nervous system and sense organs; Z87.39 Personal history of other diseases of the musculoskeletal system and connective tissue; Z86.79 Personal history of other diseases of the circulatory system; Z86.59 Personal history of other mental and behavioral disorders; Z87.19 Personal history of other diseases of the digestive system
CPT/HCPCS: 70450; 80053; 85025; 96374; 96375; 99284; J0780; J1200

== ENCOUNTER 2016-09-26 01:16 | Inpatient (IN) | payer MEDICAID ==
[~2016-09-26] VITALS: Ht 177.8 cm; Wt 82.0 kg
[2016-09-26] VITALS (16 sets, daily range): BP systolic 93–127; BP diastolic 51–91; PULSE 58–69; RESP 14–20; TEMP 97.6–98.4; O2SAT 88–100
[~2016-09-26 01:16] MED LIST changes: +DILT180C56 PO; +FLUT50SP EACH NARE; -LEVO.15 PO; +LEVO137T2 PO
[2016-09-26] MEDS ORDERED: DILT-60 PO (01:29)
[2016-09-26 02:14] LABS: BASOPHIL % 0.3 % (0.0-2.0); EOSINOPHIL # 0.1 TH/MM3 (0-0.4); EOSINOPHIL % 0.7 % (0.0-4.0); HEMATOCRIT 33.1 % (39.0-51.0); HEMO FLAGS DIFF FINAL; LYMPH % 50.8 % (9.0-44.0); LYMPHOCYTE # 4.8 TH/MM3 (1.0-4.8); MEAN CELL VOLUME 80.6 FL (80.0-100.0); MEAN CORPUSCULAR HEMOGLOBIN 26.8 PG (27.0-34.0); MEAN CORPUSCULAR HGB CONC 33.3 % (32.0-36.0); MONO % 5.1 % (0.0-8.0); NEUT % 43.1 % (16.0-70.0); PLATELET COUNT 195 TH/MM3 (150-450); RED BLOOD COUNT 4.11 MIL/MM3 (4.50-5.90); RED CELL DISTRIBUTION WIDTH 15.6 % (11.6-17.2); WHITE BLOOD COUNT 9.4 TH/MM3 (4.0-11.0)
--- NOTE | 2016-09-26 02:20 | RADRPT ---
EXAM DATE/TIME: 09/26/2016 02:06 [facility] COMPARISON: CHEST SINGLE AP, July 03, 2016, 13:41. INDICATIONS : Shortness of breath. MEDICAL HISTORY : Hypertension. SURGICAL HISTORY : Pacemaker. ENCOUNTER: Initial ACUITY: 1 day PAIN SCORE: Non-responsive. LOCATION: Bilateral chest FINDINGS: A single view of the chest demonstrates the lungs to be symmetrically aerated without evidence of mas s, infiltrate or effusion. The cardiomediastinal contours are unremarkable. Osseous structures are intact. CONCLUSION: Normal examination. Left subclavian bipolar pacer in good position Jalen Palomares MD on September 26, 2016 at 2:13 Board Certified Radiologist. This report was verified electronically.
[2016-09-26 02:21] LABS: APTT (PATIENT) 28.3 SEC (24.3-30.1); PROTHROMBIN TIME - PATIENT 11.3 SEC (9.8-11.6)
--- NOTE | 2016-09-26 02:31 | PD ---
HPI Chief Complaint: Syncope/Near-Syncope Time Seen by Provider: 01:28 Travel History International Travel<30 days: No Contact w/Intl Traveler<30days: No Traveled to known affect area: No History of Present Illness HPI The patient is a 66 year old male who presents to the [facility] emergency department with a history of being found by his family member at approximately 12:20 AM slumped over the side of the bathtub. She reports that he had just gone in to use the bathroom. She reports that he was able to use the bathroom, however he reports that he was incontinent prior to this. He denies having any history of problems with incontinence previously. He reports that he does have a headache over his forehead. He has had a headache for the last 3 weeks. He reports that he has addressed this with his primary care physician, however no problems have been identified. They report that he did have imaging done which was reportedly unremarkable. The patient does have a history of the brain tumor. He was originally diagnosed over 20 years ago and had a partial resection done at that time. The patient reports that he's been increasingly weak over the last few weeks with generalized weakness. He reports that he's had a decreased appetite. He reports that in the afternoon he had a few minutes of chest pain, however this has resolved since then. He reports that he has chronic dyspnea on exertion. He denies having any prior history of lung disease or congestive heart failure being diagnosed previously. The patient denies any recent fevers, cough, congestion, neck pain, abdominal pain, vomiting , diarrhea, urinary symptoms, one-sided weakness, slurred speech, difficulty with word finding ability, or vision changes. The patient denies any prior history of syncope. He denies any prior history of seizure activity. [facility] Past Medical History Narrative Medical The patient's past medical history is significant for having a brain tumor partially resected 20 years ago, history of atrial fibrillation, pacemaker placed previously, hypothyroid disorder, schizophrenia. Arthritis: Yes Asthma: No Autoimmune Disease: No Blood Disorders: No Anxiety: No Depression: No Heart Rhythm Problems: Yes Cancer: No Cardiac Catheterization: No Cardiovascular Problems: Yes High Cholesterol: No Chemotherapy: No Chest Pain: Yes Congestive Heart Failure: No COPD: No Cerebrovascular Accident: Yes Diabetes: Yes Patient Takes Glucophage: No (UNKNOWN) Diminished Hearing: Yes Endocrine: No GERD: No Glaucoma: No Genitourinary: No Headaches: Yes Hepatitis: No Hiatal Hernia: No Hypertension: Yes Immune Disorder: No Implanted Vascular Access Dvce: Yes Kidney Stones: No Musculoskeletal: No Neurologic: Yes Psychiatric: Yes Reproductive: No Respiratory: No Immunizations Current: Yes Migraines: No Myocardial Infarction: No Radiation Therapy: No Renal Failure: No Schizophrenia: Yes Seizures: No Sickle Cell Disease: No Sleep Apnea: No Thyroid Disease: No Ulcer: Yes Tetanus Vaccination: > 5 Years Influenza Vaccination: No PNEUMOCCOCAL Vaccine (Year): 3 Past Surgical History Narrative Surgical The patient's past surgical history is significant for a partial resection of a brain tumor, appendectomy, pacemaker placement, tonsillectomy. Abdominal Surgery: No AICD: No Appendectomy: Yes Arteriovenous Shunt: No Cardiac Surgery: Yes (PACEMAKER) Coronary Artery Bypass Graft: No Ear Surgery: No Endocrine Surgery: No Eye Surgery: No Genitourinary Surgery: No Gynecologic Surgery: No Insulin Pump: No Neurologic Surgery: Yes (TUMOR BRAIN) Oral Surgery: No Pacemaker: Yes Thoracic Surgery: No Tonsillectomy: Yes Other Surgery: Yes Family History Family Myocardial Infarction: Yes Social History Alcohol Use: No Tobacco Use: No Substance Use: No (former drug user) Allergies-Medications (Allergen,Severity, Reaction): Coded Allergies: MRI PRECAUTION (Verified Adverse Reaction, Severe, NON MRI CONDITIONAL PACEMAKER 08/24/15 KMD, 09/26/16) [employer] JIMMIE KELLEY PACEMAKER IMPLANTED 12/15/2008 Reported Meds & Prescriptions Reported Meds & Active Scripts Active Fludrocortisone (Fludrocortisone Acetate) 0.1 Mg Tab 0.2 Mg PO DAILY Reported Diltiazem CD 24 HR 120 Mg Caper 180 Mg PO DAILY Levothyroxine (Levothyroxine Sodium) 137 Mcg Tab 137 Mcg PO DAILY Fluticasone Nasal [place] 50 Mcg/Act Naspr 50 Mcg EACH NARE BID 50 mcg/spray Risperdal (Risperidone) 4 Mg Tab 2 Mg PO HS Review of Systems Except as stated in HPI: all other systems reviewed are Neg General / Constitutional: No: Fever Eyes: No: Visual changes HENT: No: Headaches, Rhinorrhea, Congestion Cardiovascular: Positive: Chest Pain or Discomfort, Syncope, Dyspnea on exertion Respiratory: Positive: Shortness of Breath, No: Cough Gastrointestinal: No: Abdominal Pain Genitourinary: No: Dysuria Musculoskeletal: No: Pain Skin: No Rash Neurologic: Positive: Weakness (generalized weakness), No: Dizziness, Focal Abnormalities, Change in Mentation, Slurred Speech, Seizures, Sensory Disturbance Psychiatric: No: Depression Endocrine: No: Polydipsia Hematologic/Lymphatic: No: Easy Bruising Physical Exam Narrative General: The patient is a well-developed well-nourished male, drowsy on examination although his eyes are open and he is able to provide a history. Head and Neck exam: Head is normocephalic atraumatic. Eyes: EOMI, pupils are equal round and reactive to light. Nose: Midline septum with pink mucous membranes Mouth: Dentition unremarkable. Moist mucus membranes. Posterior oropharynx is not erythematous. No tonsillar hypertrophy. Uvula midline. Airway patent. Neck: No palpable lymphadenopathy. No nuchal rigidity. No thyromegaly. Cardiovascular: Regular rate and rhythm without murmurs, gallops, or rubs. Lungs: Clear to auscultation bilaterally. No wheezes, rhonchi, or rales. Abdomen: Soft, without tenderness to palpation in all 4 quadrants of the abdomen. No guarding, rebound, or rigidity. Normal bowel sounds are audible. No tenderness on palpation of McBurney's point. Negative Flores's sign. Extremities: No clubbing or cyanosis. The patient has trace pedal edema bilateral lower extremities.. 2+ pulses in all 4 extremities. No calf tenderness on palpation. Back: No spinous process tenderness to palpation. No costovertebral angle tenderness to palpation. Neurologic Exam: Cranial nerves 2-12 were intact on exam. Strength is 5/5 in all 4 extremities. No sensory deficits noted. The patient is oriented to person, place, situation , however not time. Skin Exam: No rash noted. Intact skin that is warm and dry. Data Data Last Documented VS Vital Signs Date Time Temp Pulse Resp B/P Pulse Ox O2 Delivery O2 Flow Rate FiO2 09/26/16 02:55 61 111/52 62 103/51 63 98/57 09/26/16 01:59 16 96 Nasal Cannula 3 09/26/16 01:20 97.6 Orders Electrocardiogram (09/26/16 01:54) Complete Blood Count With Diff (09/26/16 01:54) Comprehensive Metabolic Panel (09/26/16 01:54) Creatine Kinase (Cpk) (09/26/16 01:54) Ckmb (Isoenzyme) Profile (09/26/16 01:54) Troponin I (09/26/16 01:54) B-Type Natriuretic Peptide (09/26/16 01:54) Prothrombin Time / Inr (Pt) (09/26/16 01:54) Act Partial Throm Time (Ptt) (09/26/16 01:54) Lipase (09/26/16 01:54) Urinalysis - C+S If Indicated (09/26/16 01:54) Magnesium (Mg) (09/26/16 01:54) Chest, Single Ap (09/26/16 01:54) Ct Brain W/O Iv Contrast(Rout) (09/26/16 01:54) Iv Access Insert/Monitor (09/26/16 01:54) Ecg Monitoring (09/26/16 01:54) Oximetry (09/26/16 01:54) Drug Screen, Random Urine (09/26/16 01:54) Alcohol (Ethanol) (09/26/16 01:54) Orthostatic Vital Signs (09/26/16 02:31) Thyroid Stimulating Hormone (09/26/16 01:55) Hydrocortisone Inj (Solucortef Inj) (09/26/16 03:15) Sodium Chlor 0.9% 1000 Ml Inj (Ns 1000 M (09/26/16 03:15) Potassium Chloride Eff (K-Lyte Cl Eff) (09/26/16 03:15) Admit Order (Ed Use Only) (09/26/16 04:05) Labs Laboratory Tests Test 09/26/16 01:55 White Blood Count 9.4 TH/MM3 Red Blood Count 4.11 MIL/MM3 Hemoglobin 11.0 GM/DL Hematocrit 33.1 % Mean Corpuscular Volume 80.6 FL Mean Corpuscular Hemoglobin 26.8 PG Mean Corpuscular Hemoglobin 33.3 % Concent Red Cell Distribution Width 15.6 % Platelet Count 195 TH/MM3 Mean Platelet Volume 9.0 FL Neutrophils (%) (Auto) 43.1 % Lymphocytes (%) (Auto) 50.8 % Monocytes (%) (Auto) 5.1 % Eosinophils (%) (Auto) 0.7 % Basophils (%) (Auto) 0.3 % Neutrophils # (Auto) 4.0 TH/MM3 Lymphocytes # (Auto) 4.8 TH/MM3 Monocytes # (Auto) 0.5 TH/MM3 Eosinophils # (Auto) 0.1 TH/MM3 Basophils # (Auto) 0.0 TH/MM3 CBC Comment DIFF FINAL Differential Comment Prothrombin Time 11.3 SEC Prothromb Time International 1.0 RATIO Ratio Activated Partial 28.3 SEC Thromboplast Time Sodium Level 144 MEQ/L Potassium Level 2.8 MEQ/L Chloride Level 105 MEQ/L Carbon Dioxide Level 28.5 MEQ/L Anion Gap 11 MEQ/L Blood Urea Nitrogen 12 MG/DL Creatinine 1.05 MG/DL Estimat Glomerular Filtration 86 ML/MIN Rate Random Glucose 172 MG/DL Calcium Level 8.7 MG/DL Magnesium Level 2.4 MG/DL Total Bilirubin 0.2 MG/DL Aspartate Amino Transf 32 U/L (AST/SGOT) Alanine Aminotransferase 34 U/L (ALT/SGPT) Alkaline Phosphatase 70 U/L Total Creatine Kinase 63 U/L Troponin I 0.02 NG/ML B-Type Natriuretic Peptide 155 PG/ML Total Protein 7.4 GM/DL Albumin 3.8 GM/DL Lipase 198 U/L Thyroid Stimulating Hormone 0.122 uIU/ML 3rd Gen Ethyl Alcohol Level LESS THAN 3 MG/DL [facility] Medical Decision Making Medical Screen Exam Complete: Yes Emergency Medical Condition: Yes Medical Record Reviewed: Yes Interpretation(s) Last Impressions Head CT 09/26/16153 Signed Impressions: Service Date/Time: Monday, September 26, 2016 02:37 - CONCLUSION: 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 Stable suprasellar soft tissue mass. No evidence of acute hemorrhage or edema. Jalen Palomares MD Chest X-Ray 09/26/16153 Signed Impressions: Service Date/Time: Monday, September 26, 2016 02:06 - CONCLUSION: Normal examination. Left subclavian bipolar pacer in good position Jalen Palomares MD Differential Diagnosis Electrolyte derangements, versus endocrine disorder, versus intracranial abnormality, versus acute coronary syndrome, versus cardiac arrhythmia, versus vasovagal syncope, versus orthostasis Narrative Course During the course of the patients emergency department visit, the patients history, examination, and differential diagnosis were reviewed with the patient. The patient had IV access obtained and blood work sent for analysis. The patient had an EKG done on arrival. The patient's EKG shows an electronic atrial paced rhythm, incomplete right bundle branch block, nonspecific T-wave abnormalities, heart rate 62, QRS duration is 105 ms, QTC 424 ms with T waves that are inverted in V3, lead III No acute ST segment elevation. The patient was initially provided hydrocortisone 100 mg IV as blood pressure was noted to be slightly low and I reviewed his records show that he does have a history of a suprasellar mass, therefore I suspected that some of the patient' s weakness was related to an addisonian crisis. The patient was given normal saline 1 L IV fluid bolus. The patients laboratory studies were reviewed and remarkable for a white count of 9.4, hemoglobin 11, platelets 195 with 50.8 lymphocytes, CMP was remarkable for a potassium of 2.8 which was supplemented orally with K-Lyte 50 mg by mouth 1, glucose 172, initial set of cardiac enzymes are within normal limits, BNP 155, TSH is low at 0.122, lipase 198, alcohol level is less than 3, PT 11.3, INR 1.0, PTT 28.3 Radiology studies were reviewed and remarkable for a CT scan of the brain shows an old stroke in the right frontal region, stable suprasellar soft tissue mass, no evidence of acute hemorrhage or edema. Chest x-ray shows no acute abnormality. The patient will be admitted to the hospital for evaluation and treatment of syncope versus seizure activity. The patients results were discussed with the patient, including the plan of care. I explained that further testing and/ or monitoring is indicated based on the patients history, examination, and/ or laboratory findings. Therefore, I recommended admission for additional evaluation. The patient expressed understanding and was agreeable with this plan. The patient was admitted to the hospital in stable condition and [facility] Physician Communication Physician Communication The patient's case is discussed with Dr. Villegas who did agree to admit the patient for further evaluation and treatment at this time. Diagnosis Primary Impression: Syncope Qualified Code: R55 - Syncope, unspecified syncope type Additional Impressions: Generalized weakness Pituitary adenoma Admitting Information Admitting Physician Requests: it Shana Reagan MD Sep 26, 2016 02:31
[2016-09-26 02:34] LABS: ALKALINE PHOSPHATASE 70 U/L (45-117); ALT (GPT) 34 U/L (12-78); ANION GAP 11 MEQ/L (5-15); AST (GOT) 32 U/L (15-37); BICARBONATE 28.5 MEQ/L (21.0-32.0); BLOOD UREA NITROGEN 12 MG/DL (7-18); CHLORIDE 105 MEQ/L (98-107); CREATINE KINASE 63 U/L (39-308); GLOMERULAR FILTRATION RATE 86 ML/MIN (>89); MAGNESIUM 2.4 MG/DL (1.5-2.5); SODIUM (NA) 144 MEQ/L (136-145); TOTAL BILIRUBIN ADULT 0.2 MG/DL (0.2-1.0)
[2016-09-26 02:37] LABS: POTASSIUM 2.8 MEQ/L (3.5-5.1)
--- NOTE | 2016-09-26 02:50 | RADRPT ---
EXAM DATE/TIME: 09/26/2016 02:37 [facility] COMPARISON: CT BRAIN W/O CONTRAST, September 06, 2016, 2:32. INDICATIONS : Syncope. RADIATION DOSE: 48.82 CTDIvol (mGy) MEDICAL HISTORY : Cardiovascular disease. Cardiovascular disease Hypertension.Suprasellar tumor SURGICAL HISTORY : Craniotomy. Pacemaker.Appendectomy. ENCOUNTER: Initial ACUITY: 1 day PAIN SCALE: 0/10 LOCATION: cranial TECHNIQUE: Multiple contiguous axial images were obtained of the head. Using automated exposure control and adj ustment of the mA and/or kV according to patient size, radiation dose was kept as low as reasonably a chievable to obtain optimal diagnostic quality images. FINDINGS: CEREBRUM: The ventricles are mildly prominent for age. No evidence of midline shift, mass lesion, hemorrhage o r acute infarction. There is an old stroke in the white metter tracks in the right frontal lobe. Sta ble 1.4 x 1.4 cm suprasellar mass. No extra-axial fluid collections are seen. POSTERIOR FOSSA: The cerebellum and brainstem are intact. The 4th ventricle is midline. The cerebellopontine angle i s unremarkable. Prominent CSF fluid posteriorly. EXTRACRANIAL: The visualized portion of the orbits is intact. SKULL: The calvaria is intact with numerous x shaped screws in the right frontal bone. No evidence of skull fracture. 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 Stable suprasellar soft tissue mass. No evidence of acute hem orrhage or edema. Jalen Palomares MD on September 26, 2016 at 2:46 Board Certified Radiologist. This report was verified electronically.
[2016-09-26] MEDS ORDERED: POTASSIUM CHLORIDE 25 MEQ EFFERVESCENT TAB PO ONE (03:15)
[2016-09-26] MEDS ORDERED: HYDROCORTISONE SOD SUCCINATE 100 MG VIAL IV PUSH ONE (03:15)
[2016-09-26] MEDS ORDERED: SODIUM CHLOR 0.9% 1000 ML INJ 1,000 ML IV ONE (03:15)
[2016-09-26] MEDS ORDERED: SODIUM CHLORIDE 0.9% FLUSH 10 ML FLUSH IV FLUSH PRN (05:15)
[2016-09-26] MEDS: LEVOTHYROXINE SODIUM 112 MCG TAB PO SCH (06:05)
[2016-09-26] MEDS: LEVOTHYROXINE SODIUM 25 MCG TAB PO SCH (06:05)
[2016-09-26 06:08] LABS: AMPHETAMINE, URINE NEG (NEG); BARBITURATES, URINE NEG (NEG); COCAINE, URINE NEG (NEG)
[2016-09-26 06:30] LABS: ALT (GPT) 33 U/L (12-78)
[2016-09-26 06:34] LABS: ALKALINE PHOSPHATASE 72 U/L (45-117); TOTAL BILIRUBIN ADULT 0.1 MG/DL (0.2-1.0)
[2016-09-26 06:40] LABS: ANION GAP 8 MEQ/L (5-15); AST (GOT) 24 U/L (15-37); BLOOD UREA NITROGEN 11 MG/DL (7-18); BLOOD, URINE NEG (NEG); CHLORIDE 111 MEQ/L (98-107); GLOMERULAR FILTRATION RATE 103 ML/MIN (>89); GLUCOSE,URINE NEG (NEG); KETONE, URINE NEG (NEG); NITRITE,URINE NEG (NEG); POTASSIUM 3.5 MEQ/L (3.5-5.1); SODIUM (NA) 146 MEQ/L (136-145); URINE COLOR LIGHT-YELLOW (YELLW/STRAW)
[2016-09-26 07:05] LABS: COMMENT (UR) CULT NOT INDICATED; CULTURE IF INDICATED CULT NOT INDICATED
--- NOTE | 2016-09-26 08:06 | HHI.HP ---
[facility] Service [facility] Primary Care Physician Jessica Reyes MD Admission Diagnosis Sycope versus Seizure, generalized weakness Diagnoses: Travel History International Travel<30 Days: No Contact w/Intl Traveler <30 Da: No Traveled to Known Affected Are: No History of Present Illness 66-year-old male with past medical history of schizophrenia, history of bradycardia status post pacemaker placement, orthostatic hypertension, history of pituitary adenoma status post resection of one tumor however he still has apparently a tumor in his pituitary gland that they could not resect, history of GERD presented to the emergency room because he was found unconscious in the bathtub. Patient states that yesterday afternoon he took a medication which he does not recall which one it was, felt dizzy and that is all he remembers. He states he was hot however he never took his temperature. He had a mild cough for 2-3 days which has not resolved. He has been having chest pains on and off. He does not remember who his health safety specialist is. He remembers having urinary incontinence which is the first time he has this and no bowel incontinence. He rates his chest pains for about a 5-6 out of 10, states is located in the middle of his chest with no radiation. He admits to shortness of breath which for him is chronic and has not worsened. He denies any nausea or vomiting, he admits to dizziness which is chronic as well. He states he cut back on his diet because he was diagnosed with diabetes he is not on insulin and doesn't think he takes pills. He states his appetite is good. Patient is somewhat a poor historian as he does not remember all the events. Per ER documentation: The patient was found by his family member at approximately 12:20 AM slumped over the side of the bathtub. Apparently he had gone in to use the bathroom. Family member reported that he was able to use the bathroom, however patient was incontinent prior to this. No prior history of incontinence. Apparently, patient had been complaining of a headache for the last 3 weeks. He reports that he has addressed this with his primary care physician, however no problems were identified. They report that he did have imaging done which was reportedly unremarkable. The patient does have a history of the brain tumor. He was originally diagnosed over 20 years ago and had a partial resection done at that time. The patient reports that he's been increasingly weak over the last few weeks with generalized weakness. He had a few minutes of chest pain, however it resolved. Pt has chronic dyspnea on exertion but no prior history of lung disease or congestive heart failure. no prior history of syncope and no prior history of seizure activity. Review of Systems Except as stated in HPI: all other systems reviewed are Neg Past Family Social History Past Medical History schizophrenia, history of bradycardia status post pacemaker placement, orthostatic hypertension, history of pituitary adenoma status post resection of one tumor however he still has apparently a tumor in his pituitary gland that they could not resect, history of GERD Past Surgical History Pacemaker hospital placement, pituitary adenoma resection, back surgery, tonsillectomy, appendectomy Reported Medications Last Impressions Head CT 09/26/16153 Signed Impressions: Service Date/Time: Saturday, September 26, 2016 02:37 - CONCLUSION: 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 Stable suprasellar soft tissue mass. No evidence of acute hemorrhage or edema. Jalen Palomares MD Chest X-Ray 09/26/16153 Signed Impressions: Service Date/Time: Saturday, September 26, 2016 02:06 - CONCLUSION: Normal examination. Left subclavian bipolar pacer in good position Jalen Palomares MD Allergies: Coded Allergies: MRI PRECAUTION (Verified Adverse Reaction, Severe, NON MRI CONDITIONAL PACEMAKER 08/24/15 KMD, 09/26/16) MEDTRONIC JIMMIE KELLEY PACEMAKER IMPLANTED 12/15/2008 Family History Mother from a heart attack. He does not recall what medical problems his father had. Social History He used to smoke but quit many years ago. He is to drink mixed drinks but he hasn't done so in many years. He has a history of using marijuana and cocaine Physical Exam Vital Signs Vital Signs Date Time Temp Pulse Resp B/P Pulse Ox O2 Delivery O2 Flow Rate FiO2 09/26/16 06:35 97.7 69 20 127/91 100 09/26/16 05:37 100 Nasal Cannula 2.00 09/26/16 05:00 60 16 93/55 100 Nasal Cannula 2 09/26/16 04:30 60 16 117/55 100 Nasal Cannula 2 09/26/16 02:55 61 111/52 62 103/51 63 98/57 09/26/16 01:59 69 16 99/54 96 Nasal Cannula 3 09/26/16 01:57 88 Room Air 09/26/16 01:20 97.6 64 16 108/52 96 Physical Exam GENERAL: This is a well-nourished, well-developed patient, in no apparent distress. SKIN: Large scar noted well healed on his skull on his forehead HEAD: No temporal or scalp tenderness. EYES: Pupils equal round and reactive. Extraocular motions intact. No scleral icterus. No injection or drainage. ENT: Nose without drainage. Throat without erythema. Uvula midline. Airway patent. NECK: Trachea midline. No JVD or lymphadenopathy. Supple, nontender, no meningeal signs. CARDIOVASCULAR: Regular rate and rhythm without murmurs. Pacemaker palpated RESPIRATORY: Clear to auscultation. Breath sounds equal bilaterally. No wheezes GASTROINTESTINAL: Abdomen soft, non-tender, nondistended. No guarding. MUSCULOSKELETAL: Extremities without edema. No joint tenderness, effusion, or edema noted. No calf tenderness. Negative Homans sign bilaterally. NEUROLOGICAL: Awake and alert. Cranial nerves II through XII intact. Motor and sensory grossly within normal limits. Five out of 5 muscle strength in all muscle groups except for 4 out of 5 on the right lower extremity. Normal speech but slow. Laboratory Laboratory Tests Test 09/26/16 09/26/16 01:55 05:40 White Blood Count 9.4 Red Blood Count 4.11 Hemoglobin 11.0 Hematocrit 33.1 Mean Corpuscular Volume 80.6 Mean Corpuscular Hemoglobin 26.8 Mean Corpuscular Hemoglobin 33.3 Concent Red Cell Distribution Width 15.6 Platelet Count 195 Mean Platelet Volume 9.0 Neutrophils (%) (Auto) 43.1 Lymphocytes (%) (Auto) 50.8 Monocytes (%) (Auto) 5.1 Eosinophils (%) (Auto) 0.7 Basophils (%) (Auto) 0.3 Neutrophils # (Auto) 4.0 Lymphocytes # (Auto) 4.8 Monocytes # (Auto) 0.5 Eosinophils # (Auto) 0.1 Basophils # (Auto) 0.0 CBC Comment DIFF FINAL Differential Comment Prothrombin Time 11.3 Prothromb Time International 1.0 Ratio Activated Partial 28.3 Thromboplast Time Sodium Level 144 146 Potassium Level 2.8 3.5 Chloride Level 105 111 Carbon Dioxide Level 28.5 27.0 Anion Gap 11 8 Blood Urea Nitrogen 12 11 Creatinine 1.05 0.90 Estimat Glomerular Filtration 86 103 Rate Random Glucose 172 114 Calcium Level 8.7 8.7 Magnesium Level 2.4 Total Bilirubin 0.2 0.1 Aspartate Amino Transf 32 24 (AST/SGOT) Alanine Aminotransferase 34 33 (ALT/SGPT) Alkaline Phosphatase 70 72 Total Creatine Kinase 63 Troponin I 0.02 0.03 B-Type Natriuretic Peptide 155 Total Protein 7.4 6.5 Albumin 3.8 3.3 Lipase 198 Thyroid Stimulating Hormone 0.122 3rd Gen Ethyl Alcohol Level LESS THAN 3 Urine Color LIGHT-YELLOW Urine Turbidity CLEAR Urine pH 5.0 Urine Specific [place] 1.003 Urine Protein NEG Urine Glucose (UA) NEG Urine Ketones NEG Urine Occult Blood NEG Urine Nitrite NEG Urine Bilirubin NEG Urine Urobilinogen LESS THAN 2.0 Urine Leukocyte Esterase NEG Urine RBC LESS THAN 1 Microscopic Urinalysis Comment CULT NOT INDICATED Urine Opiates Screen NEG Urine Barbiturates Screen NEG Urine Amphetamines Screen NEG Urine Benzodiazepines Screen NEG Urine Cocaine Screen NEG Urine Cannabinoids Screen NEG Result Diagram: 09/26/1615409/26/16 0540 Imaging Last Impressions Head CT 09/26/16153 Signed Impressions: Service Date/Time: Monday, September 26, 2016 02:37 - CONCLUSION: 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 Stable suprasellar soft tissue mass. No evidence of acute hemorrhage or edema. Jalen Palomares MD Chest X-Ray 09/26/16153 Signed Impressions: Service Date/Time: Monday, September 26, 2016 02:06 - CONCLUSION: Normal examination. Left subclavian bipolar pacer in good position Jalen Palomares MD Assessment and Plan Assessment and Plan Syncopal episode versus seizure activity. Patient was found slumped over the side of the bathtub. Patient had some chest pain prior to this episode and had urinary incontinence as well. Troponin 2 are negative. We will continue trending. Apparently patient has been complaining of chest pain on and off which she rated a 5-6 out of 10 in the located in the middle of his chest. I will get a cardiology consult for further evaluation. He does not know who his health safety specialist is. EKG reviewed by me shows atrial pacing with no ST elevations. We will also work him up for the syncopal episode by getting a 2-D echo, carotid ultrasounds. He does have a history of orthostatic hypertension for which he is on fludrocortisone. Echo done on 08/25/15 shows an EF of 50-60% and carotid artery ultrasound on 08/24/15 did not show any stenosis. Patient had a nuclear stress test on 09/03/16 which put him at intermediate risk with possible ischemia at the apex and at the septal portion of the inferior wall. In addition, we'll check an EEG to rule out any seizure activity. Neurology consult and place as patient did have urinary incontinence. continue neuro checks, place on fall and seizure precautions for now. Will get PT to evaluate pt and make recs Headache: Apparently, patient had been complaining of a headache for the last 3 weeks. He had addressed this with his primary care physician, however no problems were identified. family reported to ED physician that he did have imaging done which was reportedly unremarkable. 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 Stable suprasellar soft tissue mass. GERD: protonix Code Status full Discussed Condition With patient Jackie Smith MD Sep 26, 2016 08:06
[2016-09-26] MEDS ORDERED: GLUCAGON 1 MG/ML VIAL OTHER PRN (08:45)
[2016-09-26] MEDS ORDERED: DEXTROSE 50% IN WATER 50 ML VIAL(D50) IV PRN (08:45)
[2016-09-26] MEDS ORDERED: MORPHINE SULFATE 4 MG/ML INJ IV PUSH PRN (08:45)
[2016-09-26] MEDS ORDERED: NITROGLYCERIN 2% OINT 1 GM PACKET TOPICAL PRN (08:45)
[2016-09-26] MEDS: FLUTICASONE PROPIONATE 50 MCG/ACT 16 GM NASAL SPRAY EACH NARE SCH ×2 (09:00→20:47)
[2016-09-26] MEDS: FLUDROCORTISONE ACETATE 0.1 MG TAB PO SCH (09:00)
[2016-09-26] MEDS ORDERED: NON-FORMULARY DRUG (Levothyroxine 137 MCG) PO SCH (09:00)
--- NOTE | 2016-09-26 09:44 | MB ---
cc: MARILYN BAIG M.D. DATE OF CONSULTATION 09/26/2016 REASON FOR CONSULTATION Loss of consciousness HISTORY OF PRESENT ILLNESS Mr. Chaudhry is a 66-year-old -[place] man with a history of pituitary adenoma status post resection partially, as well as pacemaker placement. He apparently had an episode of dizziness and loss of consciousness. Apparently was found unconscious in the bathtub. He did have bladder incontinence. He was having chest pain as well. The episode was not witnessed. He has no prior history of seizures. He is has been having headaches as well for three weeks. PAST MEDICAL HISTORY 1. Schizophrenia 2. Bradycardia, pacemaker placement 3. Orthostatic hypotension 4. History of pituitary adenoma with partial resection. He states the tumor was involving the optic nerve so a total resection could not be accomplished. 5. Gastroesophageal reflux disease 6. He states he states he was recently diagnosis with diabetes, but does not take any medication for this. ALLERGIES He cannot have an MRI due to the pacemaker. MEDICATIONS 1. Risperidone 2 mg at bedtime 2. Cardizem 180 mg daily 3. Florinef 0.2 mg daily 4. Flonase 5. Protonix 40 mg daily 6. Aspirin 325 mg daily 7. Morphine sulfate as needed for pain 8. Nitroglycerin as needed 9. Synthroid 25 mcg daily NEUROLOGIC EXAMINATION Blood pressure 125/58, pulse is 65, respiratory rate is 16, temperature 97 degrees. Higher cortical functions, he is alert, oriented. Speech is fluent. Cranial nerves intact. Motor exam no focal deficit. He has no drift. Sensory exam intact. Reflexes are symmetric. CT scan of the brain shows an old stroke in the right frontal region. There is a suprasellar soft tissue mass which was stable compared to a CT of the brain September 06, 2016. Ventricles were mildly prominent. No mass effect. 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 LABORATORY DATA The white count is 9400, hemoglobin 11, hematocrit 33%, platelet count 195,000. Sodium 146, potassium 3.5, chloride 111, CO2 27, the BUN is 11, creatinine 0.9, GFR is 103, glucose 114, AST 24, ALT 33, troponin 0.03, CPK 63, lipase 198, TSH 0.122. Tox screen negative. Urinalysis, the pH is 5, specific gravity 1.003, otherwise negative. PT 11.3, INR 1, APTT 20. IMPRESSION Syncope, possible seizure, rule out cardiac syncope. RECOMMENDATIONS I would like to get a CT of the brain with contrast to further evaluate the pituitary tumor. We will also obtain an EEG. Recommend cardiology consult as well. We will check a carotid ultrasound and echocardiogram, orthostatic blood pressure and pulse. MD ARASH Claire/MOISES /9:23 AM /9:29 AM
[2016-09-26] MEDS: PANTOPRAZOLE SOD 40 MG DELAYED RELEASE TAB PO SCH (10:05)
[2016-09-26] MEDS: DILTIAZEM-CD 180 MG CAP ER PO SCH (10:05)
[2016-09-26] MEDS: SODIUM CHLORIDE 0.9% FLUSH 10 ML FLUSH IV FLUSH SCH ×2 (10:05→20:46)
[2016-09-26] MEDS: ASPIRIN 325 MG TAB PO SCH (10:13)
[2016-09-26] MEDS ORDERED: IOHEXOL 350 MG/ML 10 ML VIAL (for RAD DIAG) IV ONE (11:30)
--- NOTE | 2016-09-26 12:30 | RADRPT ---
EXAM DATE/TIME: 09/26/2016 11:24 [facility] COMPARISON: CT BRAIN W & W/O CONTRAST, August 26, 2015, 11:57. INDICATIONS : Syncope and seizures, history of pituitary tumors. IV CONTRAST: 66 cc Omnipaque 350 (iohexol) IV RADIATION DOSE: 43.97 CTDIvol (mGy) MEDICAL HISTORY : Hypertension. Cardiovascular disease Diabetes mellitus type 2.Prior stroke. SURGICAL HISTORY : Tonsillectomy. Pacemaker. ENCOUNTER: Initial ACUITY: 1 day PAIN SCALE: 0/10 LOCATION: Cranial TECHNIQUE: Multiple contiguous axial images were obtained of the head. Using automated exposure control and adjustment of the mA and/or kV according to patient size, radiation dose was kept as low as reasonably achievable to obtain optimal diagnostic quality images. FINDINGS: The patient has a partially enhancing mass in the pituitary fossa that is stable in siz e from 08/26/2015. The mass does touch the optic chiasm. The mass does not invade the cavernous sinus. Incidental basal ganglia calcifications are noted. Prominent cisterna magna is evident. There is no parenchymal hemorrhage or mass lesion. 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 CONCLUSION: 1. Stable CT scan of the head performed without and with contrast. 2. Pituitary mass is again seen. 3. 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 Junior Montesinos MD FACR on September 26, 2016 at 12:06 Board Certified Radiologist. This report was verified electronically.
--- NOTE | 2016-09-26 13:29 | RADRPT ---
EXAM DATE/TIME: 09/26/2016 12:22 [facility] COMPARISON: US CAROTID ARTERIES, August 24, 2015, 18:34. INDICATIONS : Syncope. MEDICAL HISTORY : Hypertension. Arthritis. CVA. Brain tumor. Head trauma. Chest pain. Irregular heartbeat. Dyspnea. U lcer. Diabetes. Schizophrenia. Former drug user. SURGICAL HISTORY : Tonsillectomy. Pacemaker. Appendectomy. Brain tumor surgery. Lumbar surgery. ENCOUNTER: Initial ACUITY: 3 weeks PAIN SCORE: 10/10 LOCATION: Bilateral neck PEAK SYSTOLIC VELOCITIES (cm/sec): ICA/CCA RATIO: Right: 0.9 Left: 1.1 ICA: Right: 55 Left: 70 CCA: Right: 62 Left: 63 ECA: Right: 66 Left: 50 VERTEBRAL: Right: 48 antegrade Left: 51 antegrade Elevated flow velocities and ICA/CCA ratios have been found to correlate with increased degrees of vessel stenosis, calculated as percentage of diameter relative to a normal segment of distal ICA/CCA FINDINGS: RIGHT CAROTID: No significant plaque. No significant stenosis is visualized. The waveforms are within normal limits . LEFT CAROTID: No significant plaque. No significant stenosis is visualized. The waveforms are within normal limits . VERTEBRAL ARTERIES: Antegrade flow is seen in both vertebral arteries. MISCELLANEOUS: None. CONCLUSION: 1. Patent carotid arteries bilaterally. 2. Antegrade flow involving both vertebral arteries. Sumanth Merino Jr., MD on September 26, 2016 at 13:23 Board Certified Radiologist. This report was verified electronically.
--- NOTE | 2016-09-26 16:24 | EKG ---
Date Performed: 09/26/2016 Time Performed: 01:32:43 PTAGE: 66 years EKG: ELECTRONIC ATRIAL PACEMAKER INCOMPLETE RIGHT BUNDLE BRANCH BLOCK NONSPECIFIC T-WAVE ABNORMA LITY ABNORMAL RHYTHM ECG Compared to the PREVIOUS TRACING from 07/03/16, no significant change DOCTOR: Jaime Wallace Interpretating Date/Time 09/26/2016 16:22:48
--- NOTE | 2016-09-26 16:54 | MG ---
cc: MARILYN BAIG Lab No: [id number] Date: 09/26/16 Age: 66 Sex: M Race: TECHNIQUE 17 channel EEG. DESCRIPTION The background rhythm reveals a symmetrical alpha rhythm, frequency is 8-10 Hz, amplitude is 20-30 microvolts. There is fairly frequent muscle artifact in the tracing. There is sharp activity identified mainly over the right parietal area with some degree of phase reversal. This is occasionally seen over the left hemisphere as well but definitely more prominent over the right. There is some muscle artifact. Photic stimulation results in a fairly well-developed symmetric driving response. INTERPRETATION This is an abnormal study. There is sharp activity bilaterally but more prominent over the right parietal area of phase reversal suggesting an underlying epileptogenic focus. MD ARASH Claire/CORWIN /4:33 PM /4:45 PM
[2016-09-26 17:45] LABS: HEMOGLOBIN A1a 1.1 %; HEMOGLOBIN A1b 0.8 %; HEMOGLOBIN Ao 85.2 %; HEMOGLOBIN LA1C 2.1 %; HEMOGLOBIN P3 3.3 %
--- NOTE | 2016-09-26 18:04 | MB ---
cc: MARU RAZA DATE OF CONSULTATION 09/26/2016 HISTORY Mr. Chaudhry is a 66-year-old white male with a history of schizophrenia, orthostatic hypotension, bradycardia and pacemaker placement. He was found unconscious in his bathtub. He felt dizzy after he took an unknown medication yesterday but does not have any recollection of subsequent events. He has occasional mild chest discomfort and mild shortness of breath. He has chronic dizziness. PAST MEDICAL HISTORY Positive for: 1. Schizophrenia. 2. Bradycardia. 3. Pacemaker placement. 4. Orthostatic hypotension. 5. Pituitary adenoma. 6. Status post resection of pituitary tumor. 7. Gastroesophageal reflux disease. 8. Diabetes mellitus. 9. Back surgery. 10. Tonsillectomy. 11. Appendectomy. 12. He underwent pacemaker placement in November [address] Cronin using a Medtronic dual-chamber device. MEDICATIONS Include: 1. Synthroid. 2. Nitroglycerin p.r.n. 3. Morphine p.r.n. 4. Aspirin. 5. Protonix. 6. Flonase. 7. Florinef. 8. Diltiazem. 9. Risperidone. ALLERGIES No known medical allergies. SOCIAL HISTORY The patient does not smoke. He does not drink alcohol. FAMILY HISTORY Positive for heart disease. REVIEW OF SYSTEMS Otherwise negative. PHYSICAL EXAMINATION VITAL SIGNS: Blood pressure 104/56, pulse 60 and regular. HEENT: Negative. 2+ carotid upstrokes. No bruits. LUNGS: Clear. HEART: Regular with no murmur, gallop. ABDOMEN: Soft. No bruits. EXTREMITIES: Without edema. 2+ distal pulses. NEUROLOGIC: Examination is grossly nonfocal. EKG was reviewed and showed atrial pacing, normal axis and nonspecific T-wave changes. LABORATORY DATA Hemoglobin 11.0. Potassium 2.8 and 3.5. Creatinine 1.0 and 0.9. AST and ALT are normal. Troponin negative x3. BNP 155. Myocardial perfusion study in 06/2014 showed possible apical and anteroseptal ischemia. DIAGNOSES 1. Syncope. 2. Bradycardia, status post Medtronic pacemaker placement. 3. Unspecified angina, abnormal nuclear myocardial perfusion study in June 2016. 4. Headaches. 5. Schizophrenia. DISPOSITION Mr. Chaudhry is going to be ruled out for myocardial infarction by enzymes. He is undergoing neurologic evaluation for his syncope. We will interrogate his pacemaker. He will be monitored on telemetry. He has a history of orthostatic hypotension and we will resume his fludrocortisone. I will follow him for cardiology during his hospitalization. MD PH[place]ENIX Christy/KK /3:57 PM /5:38 PM [place]
[2016-09-26] MEDS: risperiDONE 1 MG TAB PO SCH (20:46)
[2016-09-26] MEDS: levETIRAcetam 500 MG TAB PO SCH (20:46)
[2016-09-27] VITALS (14 sets, daily range): BP systolic 97–115; BP diastolic 53–70; PULSE 60–88; RESP 14–20; TEMP 97.2–98.6; O2SAT 97–100
[2016-09-27] MEDS: LEVOTHYROXINE SODIUM 112 MCG TAB PO SCH (06:23)
[2016-09-27] MEDS: LEVOTHYROXINE SODIUM 25 MCG TAB PO SCH (06:23)
[2016-09-27 07:29] LABS: AUTOMATED NEUTROPHIL # 2.6 TH/MM3 (1.8-7.7); BASOPHIL % 0.6 % (0.0-2.0); EOSINOPHIL # 0.1 TH/MM3 (0-0.4); EOSINOPHIL % 1.3 % (0.0-4.0); HEMATOCRIT 33.3 % (39.0-51.0); HEMO FLAGS DIFF FINAL; LYMPH % 55.1 % (9.0-44.0); LYMPHOCYTE # 3.8 TH/MM3 (1.0-4.8); MEAN CELL VOLUME 80.6 FL (80.0-100.0); MEAN CORPUSCULAR HEMOGLOBIN 26.2 PG (27.0-34.0); MEAN CORPUSCULAR HGB CONC 32.5 % (32.0-36.0); MONO % 5.4 % (0.0-8.0); NEUT % 37.6 % (16.0-70.0); PLATELET COUNT 173 TH/MM3 (150-450); RED BLOOD COUNT 4.12 MIL/MM3 (4.50-5.90); RED CELL DISTRIBUTION WIDTH 15.5 % (11.6-17.2); WHITE BLOOD COUNT 6.9 TH/MM3 (4.0-11.0)
[2016-09-27 07:55] LABS: BICARBONATE 27.4 MEQ/L (21.0-32.0); POTASSIUM 3.6 MEQ/L (3.5-5.1)
[2016-09-27] MEDS: FLUTICASONE PROPIONATE 50 MCG/ACT 16 GM NASAL SPRAY EACH NARE SCH ×2 (09:20→21:00)
[2016-09-27] MEDS: levETIRAcetam 500 MG TAB PO SCH ×2 (09:21→21:31)
[2016-09-27] MEDS: ASPIRIN 325 MG TAB PO SCH (09:21)
[2016-09-27] MEDS: DILTIAZEM-CD 180 MG CAP ER PO SCH (09:21)
[2016-09-27] MEDS: FLUDROCORTISONE ACETATE 0.1 MG TAB PO SCH (09:21)
[2016-09-27] MEDS: PANTOPRAZOLE SOD 40 MG DELAYED RELEASE TAB PO SCH (09:21)
[2016-09-27] MEDS: SODIUM CHLORIDE 0.9% FLUSH 10 ML FLUSH IV FLUSH SCH ×2 (09:21→21:32)
[2016-09-27] MEDS ORDERED: INFLUENZA VIRUS VACCINE (QUADRIVALENT) 0.5 ML SYR IM ONE (10:00)
[2016-09-27] MEDS ORDERED: PNEUMOCOCCAL POLYVALENT INJ 25 MCG/0.5 ML SYR IM ONE (10:00)
--- NOTE | 2016-09-27 10:53 | HHI.PR ---
Subjective Remarks Follow up syncopal episode. Patient sitting up eating breakfast. Patient states he does not remember passing out or having any symptoms prior to. He does state he has some memory problems since having the pituitary tumor removed. He does complain of a throbbing headache that has lasted for 3 weeks or more, with intermittent chest pain. He states he lives with his sister. Denies any dizziness, sob, fever or chills. Objective Vitals Vital Signs Date Time Temp Pulse Resp B/P Pulse Ox O2 Delivery O2 Flow Rate FiO2 09/27/16 08:40 97 21 09/27/16 07:28 97.7 60 16 113/56 100 103/67 115/70 09/27/16 05:33 98.5 60 20 97/53 09/27/16 00:22 98.4 88 20 105/54 98 09/26/16 23:24 60 09/26/16 20:24 98.4 58 20 106/60 100 09/26/16 20:09 99 Nasal Cannula 2.00 09/26/16 15:03 97.6 60 14 104/56 99 09/26/16 12:40 60 09/26/16 12:05 98.1 68 18 108/60 99 104/56 109/57 I/O 09/26/16 09/26/16 09/26/16 09/27/16 09/27/16 09/27/16 07:00 15:00 23:00 07:00 15:00 23:00 Intake Total 600 ml 200 ml Output Total 1000 ml 1300 ml 200 ml 200 ml 575 ml Balance -1000 ml -1300 ml 400 ml 0 ml -575 ml Intake Oral 600 ml 200 ml Output Urine Total 1000 ml 1300 ml 200 ml 200 ml 575 ml Result Diagram: 09/27/16 0711 09/27/16 0711 Imaging Last Impressions Head CT 09/26/16 0154 Signed Impressions: Service Date/Time: Monday, September 26, 2016 02:37 - CONCLUSION: 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 Stable suprasellar soft tissue mass. No evidence of acute hemorrhage or edema. Jalen Palomares MD Chest X-Ray 09/26/16 0154 Signed Impressions: Service Date/Time: Monday, September 26, 2016 02:06 - CONCLUSION: Normal examination. Left subclavian bipolar pacer in good position Jalen Palomares MD Carotid Artery Ultrasound 09/26/16 0000 Signed Impressions: Service Date/Time: Monday, September 26, 2016 12:22 - CONCLUSION: 1. Patent carotid arteries bilaterally. 2. Antegrade flow involving both vertebral arteries. Sumanth Merino Jr., MD Objective Remarks GENERAL: Well nourished in NAD SKIN: Warm and dry. HEAD: Atraumatic. Normocephalic. EYES: Pupils equal and round. No scleral icterus. No injection or drainage. ENT: No nasal bleeding or discharge. Mucous membranes pink and moist. NECK: Trachea midline. No JVD. CARDIOVASCULAR: Regular rate and rhythm. RESPIRATORY: No accessory muscle use. Clear to auscultation. Breath sounds equal bilaterally. GASTROINTESTINAL: Abdomen soft, non-tender, nondistended. Hepatic and splenic margins not palpable. MUSCULOSKELETAL: Extremities without clubbing, cyanosis, or edema. No obvious deformities. NEUROLOGICAL: Awake and alert. No obvious cranial nerve deficits. Motor grossly within normal limits. Five out of 5 muscle strength in the arms and legs. Normal speech. PSYCHIATRIC: Appropriate mood and affect; insight and judgment normal. Medications and IVs Current Medications Medications (Trade) Dose Ordered Sig/Albert Route Start Time Stop Time Status Last Admin (Cardizem Cd) 180 mg DAILY PO 09/26/16 09:00 09/27/16 09:21 (Florinef) 0.2 mg DAILY PO 09/26/16 09:00 09/27/16 09:21 (risperDAL) 2 mg HS PO 09/26/16 21:00 09/26/16 20:46 (NS Flush) 2 ml UNSCH PRN IV FLUSH 09/26/16 05:15 (NS Flush) 2 ml BID IV FLUSH 09/26/16 09:00 09/27/16 09:21 (Synthroid) 25 mcg DAILY@0600 PO 09/26/16 06:00 09/27/16 06:23 (Synthroid) 112 mcg DAILY@0600 PO 09/26/16 06:00 09/27/16 06:23 (Flonase Zachary Spr) 1 spray BID EACH NARE 09/26/16 09:00 09/27/16 09:20 (Protonix) 40 mg DAILY PO 09/26/16 09:00 09/27/16 09:21 (Morphine Inj) 1 mg Q4H PRN IV PUSH 09/26/16 08:45 (Nitroglycerin 2% Oint) 0.5 inch Q6H PRN TOPICAL 09/26/16 08:45 (Aspirin) 325 mg DAILY PO 09/26/16 09:00 09/27/16 09:21 (D50w (Vial) Inj) 50 ml UNSCH PRN IV 09/26/16 08:45 (Glucagon Inj) 1 mg UNSCH PRN OTHER 09/26/16 08:45 (Keppra) 1,000 mg Q12HR PO 09/26/16 21:00 09/27/16 09:21 A/P Problem List: (1) Syncope ICD Code: R55 Status: Acute (2) Pituitary adenoma ICD Code: D35.2 Status: Acute (3) Headache ICD Code: R51 Status: Acute (4) Seizure ICD Code: R56.9 Status: Acute Assessment and Plan Syncope, suspected seizure activity, Patient found slumped over in bathtub, urinary incontinence when found. EEG abnormal, suggesting an underlying epileptogenic focus Troponin negative -Cardiology consulted, Dr. Rooney is following, recommended Echo and Carotid US, pacemaker will be interrogated -Carotid US shows patent carotid arteries bilaterally -Monitor tele Headache, acute for the last 3 weeks, hx of pituitary mass that could not be completely removed Head CT with contrast shows recurrent pituitary mass -Neurology Dr. Mullen is following -Cont Keppra 1000mg BID, started by neurology -Seizure precautions -Pain management with IV morphine Unstable Angina, Nuc stress test this year showed ischemia -Cardiology is planning for a cath tomorrow -Cont Nitro paste -IV morphine for chest pain Orthostatic BP, chronic, currently stable -Cont home Fludrocortisone -Silvino hose -Pt daily, PT recommends out patient PT Schizophrenia -Cont home medications DVT prophylaxis: scds/teds Problem Qualifiers (1) Syncope: Qualified Code: R55 - Syncope, unspecified syncope type Serina Valentin Sep 27, 2016 10:53
--- NOTE | 2016-09-27 11:29 | PD.CARD.PN ---
Subjective Subjective Remarks No CP or SOB, feels better Objective Medications Current Medications Medications (Trade) Dose Ordered Sig/Albert Route Start Time Stop Time Status Last Admin (Cardizem Cd) 180 mg DAILY PO 09/26/16 09:00 09/27/16 09:21 (Florinef) 0.2 mg DAILY PO 09/26/16 09:00 09/27/16 09:21 (risperDAL) 2 mg HS PO 09/26/16 21:00 09/26/16 20:46 (NS Flush) 2 ml UNSCH PRN IV FLUSH 09/26/16 05:15 (NS Flush) 2 ml BID IV FLUSH 09/26/16 09:00 09/27/16 09:21 (Synthroid) 25 mcg DAILY@0600 PO 09/26/16 06:00 09/27/16 06:23 (Synthroid) 112 mcg DAILY@0600 PO 09/26/16 06:00 09/27/16 06:23 (Flonase Zachary Spr) 1 spray BID EACH NARE 09/26/16 09:00 09/27/16 09:20 (Protonix) 40 mg DAILY PO 09/26/16 09:00 09/27/16 09:21 (Morphine Inj) 1 mg Q4H PRN IV PUSH 09/26/16 08:45 (Nitroglycerin 2% Oint) 0.5 inch Q6H PRN TOPICAL 09/26/16 08:45 (Aspirin) 325 mg DAILY PO 09/26/16 09:00 09/27/16 09:21 (D50w (Vial) Inj) 50 ml UNSCH PRN IV 09/26/16 08:45 (Glucagon Inj) 1 mg UNSCH PRN OTHER 09/26/16 08:45 (Keppra) 1,000 mg Q12HR PO 09/26/16 21:00 09/27/16 09:21 Vital Signs / I&O Vital Signs Date Time Temp Pulse Resp B/P Pulse Ox O2 Delivery O2 Flow Rate FiO2 09/27/16 08:40 97 21 09/27/16 07:28 97.7 60 16 113/56 100 103/67 115/70 09/27/16 05:33 98.5 60 20 97/53 09/27/16 00:22 98.4 88 20 105/54 98 09/26/16 23:24 60 09/26/16 20:24 98.4 58 20 106/60 100 09/26/16 20:09 99 Nasal Cannula 2.00 09/26/16 15:03 97.6 60 14 104/56 99 09/26/16 12:40 60 09/26/16 12:05 98.1 68 18 108/60 99 104/56 109/57 I/O 09/26/16 09/26/16 09/26/16 09/27/16 09/27/16 09/27/16 07:00 15:00 23:00 07:00 15:00 23:00 Intake Total 600 ml 200 ml Output Total 1000 ml 1300 ml 200 ml 200 ml 575 ml Balance -1000 ml -1300 ml 400 ml 0 ml -575 ml Intake Oral 600 ml 200 ml Output Urine Total 1000 ml 1300 ml 200 ml 200 ml 575 ml Physical Exam GENERAL: In NAD SKIN: Warm and dry. HEAD: Normocephalic. EYES: No scleral icterus. No injection or drainage. NECK: Supple, trachea midline. No JVD or lymphadenopathy. CARDIOVASCULAR: Regular rate and rhythm without murmurs, gallops, or rubs. RESPIRATORY: Breath sounds equal bilaterally. No accessory muscle use. GASTROINTESTINAL: Abdomen soft, non-tender, nondistended. MUSCULOSKELETAL: No cyanosis, or edema. Laboratory Laboratory Tests Test 09/27/16 07:11 White Blood Count 6.9 TH/MM3 Red Blood Count 4.12 MIL/MM3 Hemoglobin 10.8 GM/DL Hematocrit 33.3 % Mean Corpuscular Volume 80.6 FL Mean Corpuscular Hemoglobin 26.2 PG Mean Corpuscular Hemoglobin 32.5 % Concent Red Cell Distribution Width 15.5 % Platelet Count 173 TH/MM3 Mean Platelet Volume 9.0 FL Neutrophils (%) (Auto) 37.6 % Lymphocytes (%) (Auto) 55.1 % Monocytes (%) (Auto) 5.4 % Eosinophils (%) (Auto) 1.3 % Basophils (%) (Auto) 0.6 % Neutrophils # (Auto) 2.6 TH/MM3 Lymphocytes # (Auto) 3.8 TH/MM3 Monocytes # (Auto) 0.4 TH/MM3 Eosinophils # (Auto) 0.1 TH/MM3 Basophils # (Auto) 0.0 TH/MM3 CBC Comment DIFF FINAL Differential Comment Sodium Level 144 MEQ/L Potassium Level 3.6 MEQ/L Chloride Level 110 MEQ/L Carbon Dioxide Level 27.4 MEQ/L Anion Gap 7 MEQ/L Blood Urea Nitrogen 7 MG/DL Creatinine 0.70 MG/DL Estimat Glomerular Filtration 138 ML/MIN Rate Random Glucose 85 MG/DL Calcium Level 8.9 MG/DL Imaging Last Impressions Head CT 09/26/16153 Signed Impressions: Service Date/Time: Monday, September 26, 2016 02:37 - CONCLUSION: 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 Stable suprasellar soft tissue mass. No evidence of acute hemorrhage or edema. Jalen Palomares MD Chest X-Ray 09/26/16153 Signed Impressions: Service Date/Time: Monday, September 26, 2016 02:06 - CONCLUSION: Normal examination. Left subclavian bipolar pacer in good position Jalen Palomares MD Carotid Artery Ultrasound 09/26/16 0000 Signed Impressions: Service Date/Time: Monday, September 26, 2016 12:22 - CONCLUSION: 1. Patent carotid arteries bilaterally. 2. Antegrade flow involving both vertebral arteries. Sumanth Merino Jr., MD Assessment and Plan Problem List: (1) Syncope (2) Angina at rest (3) Orthostatic hypotension (4) Pacemaker (5) Paranoid schizophrenia Assessment and Plan Recent angina. Nuc ST earlier this year with evidence of ischemia. Proceed with cath and coronary intervention if necessary tomorrow. Continue current program. Problem Qualifiers (1) Syncope: Qualified Code: R55 - Syncope, unspecified syncope type Yissel Rooney MD Sep 27, 2016 11:29
--- NOTE | 2016-09-27 16:58 | ECHRPT ---
Indication: Syncope and collapse CONCLUSIONS Normal left ventricular size. The left ventricular systolic function is normal with an estimated ej ection fraction in the range of 60-65%. Wall thickness is normal. No regional wall motion abnormalities are present. There is trace tricuspid valve regurgitation. Structurally normal tricuspid valve. BP: 111 / 52 HR: 61 Rhythm: Sinus MEASUREMENTS (Male / Female) Normal Values Technical Quality:Fair 2D ECHO LV Diastolic Diameter PLAX 5.1 cm 4.2 - 5.9 / 3.9 - 5.3 cm LV Systolic Diameter PLAX 3.6 cm IVS Diastolic Thickness 0.9 cm 0.6 - 1.0 / 0.6 - 0.9 cm LVPW Diastolic Thickness 0.9 cm 0.6 - 1.0 / 0.6 - 0.9 cm LV Relative Wall Thickness 0.4 LVOT Diameter 2.2 cm Aortic Root Diameter 3.4 cm LA Systolic Diameter LX 2.8 cm 3.0 - 4.0 / 2.7 - 3.8 cm M-MODE AV Cusp Separation MM 2.6 cm DOPPLER AV Peak Velocity 102.0 cm/s AV Peak Gradient 4.2 mmHg AV Mean Gradient 2.0 mmHg AV Velocity Time Integral 18.9 cm LVOT Peak Velocity 67.7 cm/s LVOT Peak Gradient 1.8 mmHg LVOT Velocity Time Integral 11.9 cm LVOT Cardiac Index 1298.6 cm/minm AV Area Cont Eq vti 2.4 cm AV Area Cont Eq pk 2.5 cm Mitral E Point Velocity 66.6 cm/s Mitral A Point Velocity 35.5 cm/s Mitral E to A Ratio 1.9 LV E' Lateral Velocity 9.8 cm/s Mitral E to LV E' Lateral Ratio 6.8 LV E' Septal Velocity 6.1 cm/s Mitral E to LV E' Septal Ratio 10.8 TR Peak Velocity 247.0 cm/s TR Peak Gradient 24.4 mmHg PV Peak Velocity 58.7 cm/s PV Peak Gradient 1.4 mmHg FINDINGS Left Ventricle Normal left ventricular size. The left ventricular systolic function is normal with an estimated ej ection fraction in the range of 60-65%. Wall thickness is normal. No regional wall motion abnormalities are present. Right Ventricle Normal right ventricular size and systolic function. Left Atrium The left atrial size is normal. Right Atrium The right atrial size is normal. Atrial Septum Normal atrial septal thickness without atrial level shunting by limited color doppler interrogation. Aorta The aortic root and proximal ascending aorta are normal in size on limited imaging. Mitral Valve Structurally normal mitral valve. No mitral valve stenosis or regurgitation. Aortic Valve Trileaflet aortic valve. No aortic valve stenosis or regurgitation. Tricuspid Valve There is trace tricuspid valve regurgitation. Structurally normal tricuspid valve. Pulmonary Valve The pulmonary valve is not well visualized. Vessels The inferior vena cava is normal in size. Pericardium No pericardial effusion. Jalen Gonzales MD, FACC (Electronically Signed) Final Date:27 September 2016 16:57
--- NOTE | 2016-09-27 20:41 | HHI.PR ---
Review/Management Diagnosis most likely a seizure stable suprasellar mass Plan keppra 1000 mg bid Diagnosis/Plan: Subjective Subjective Comments No acute events reported tolerating keppra well Active Medications Current Medications Medications (Trade) Dose Ordered Sig/Albert Route Start Time Stop Time Status Last Admin (Palmer Cd) 180 mg DAILY PO 09/26/16 09:00 09/27/16 09:21 (Florinef) 0.2 mg DAILY PO 09/26/16 09:00 09/27/16 09:21 (risperDAL) 2 mg HS PO 09/26/16 21:00 09/26/16 20:46 (NS Flush) 2 ml UNSCH PRN IV FLUSH 09/26/16 05:15 (NS Flush) 2 ml BID IV FLUSH 09/26/16 09:00 09/27/16 09:21 (Synthroid) 25 mcg DAILY@0600 PO 09/26/16 06:00 09/27/16 06:23 (Synthroid) 112 mcg DAILY@0600 PO 09/26/16 06:00 09/27/16 06:23 (Flonase Zachary Spr) 1 spray BID EACH NARE 09/26/16 09:00 09/27/16 09:20 (Protonix) 40 mg DAILY PO 09/26/16 09:00 09/27/16 09:21 (Morphine Inj) 1 mg Q4H PRN IV PUSH 09/26/16 08:45 (Nitroglycerin 2% Oint) 0.5 inch Q6H PRN TOPICAL 09/26/16 08:45 (Aspirin) 325 mg DAILY PO 09/26/16 09:00 09/27/16 09:21 (D50w (Vial) Inj) 50 ml UNSCH PRN IV 09/26/16 08:45 (Glucagon Inj) 1 mg UNSCH PRN OTHER 09/26/16 08:45 (Keppra) 1,000 mg Q12HR PO 09/26/16 21:00 09/27/16 09:21 Allergies Allergies Coded Allergies MRI PRECAUTION (Verified Adverse Reaction, Severe, NON MRI CONDITIONAL PACEMAKER 08/24/15 KMD, 09/26/16) Exam I&O / VS 09/26/16 09/26/16 09/27/16 15:00 23:00 07:00 Intake Total 600 ml 200 ml Output Total 1300 ml 200 ml 200 ml Balance -1300 ml 400 ml 0 ml Intake Oral 600 ml 200 ml Output Urine Total 1300 ml 200 ml 200 ml Vital Signs Date Time Temp Pulse Resp B/P Pulse Ox O2 Delivery O2 Flow Rate FiO2 09/27/16 16:30 98.3 70 18 104/70 100 09/27/16 16:23 77 09/27/16 16:00 97.9 60 16 98/65 100 09/27/16 12:13 98.6 60 14 101/58 98 09/27/16 08:40 97 21 09/27/16 08:00 75 09/27/16 07:28 97.7 60 16 113/56 100 103/67 115/70 09/27/16 05:33 98.5 60 20 97/53 09/27/16 00:22 98.4 88 20 105/54 98 09/26/16 23:24 60 Exam Comments alert, follow commands cn intact motor 5/5 bue Objective Radiology Results CT brain--stable suprasellar mass. old right frontal stroke Micro and Labs Laboratory Tests Test 09/27/16 07:11 White Blood Count 6.9 Red Blood Count 4.12 Hemoglobin 10.8 Hematocrit 33.3 Mean Corpuscular Volume 80.6 Mean Corpuscular Hemoglobin 26.2 Mean Corpuscular Hemoglobin 32.5 Concent Red Cell Distribution Width 15.5 Platelet Count 173 Mean Platelet Volume 9.0 Neutrophils (%) (Auto) 37.6 Lymphocytes (%) (Auto) 55.1 Monocytes (%) (Auto) 5.4 Eosinophils (%) (Auto) 1.3 Basophils (%) (Auto) 0.6 Neutrophils # (Auto) 2.6 Lymphocytes # (Auto) 3.8 Monocytes # (Auto) 0.4 Eosinophils # (Auto) 0.1 Basophils # (Auto) 0.0 CBC Comment DIFF FINAL Differential Comment Sodium Level 144 Potassium Level 3.6 Chloride Level 110 Carbon Dioxide Level 27.4 Anion Gap 7 Blood Urea Nitrogen 7 Creatinine 0.70 Estimat Glomerular Filtration 138 Rate Random Glucose 85 Calcium Level 8.9 Diagnostic Tests EEG---epileptiform discharges are seen Agusto Mullen PhD Sep 27, 2016 20:41
[2016-09-27] MEDS: risperiDONE 1 MG TAB PO SCH (21:32)
[2016-09-28] VITALS (26 sets, daily range): BP systolic 87–119; BP diastolic 64–76; PULSE 60–70; RESP 14–18; TEMP 97.4–98.2; O2SAT 98–99
[2016-09-28] MEDS: LEVOTHYROXINE SODIUM 112 MCG TAB PO SCH (06:00)
[2016-09-28] MEDS: LEVOTHYROXINE SODIUM 25 MCG TAB PO SCH (06:25)
[2016-09-28] MEDS: SODIUM CHLORIDE 0.9% FLUSH 10 ML FLUSH IV FLUSH SCH ×2 (12:30→21:52)
[2016-09-28] MEDS: ASPIRIN 325 MG TAB PO SCH (12:30)
[2016-09-28] MEDS: levETIRAcetam 500 MG TAB PO SCH ×2 (12:55→21:51)
[2016-09-28] MEDS: PANTOPRAZOLE SOD 40 MG DELAYED RELEASE TAB PO SCH (12:56)
[2016-09-28] MEDS: DILTIAZEM-CD 180 MG CAP ER PO SCH (12:56)
[2016-09-28] MEDS: FLUDROCORTISONE ACETATE 0.1 MG TAB PO SCH (12:57)
--- NOTE | 2016-09-28 13:48 | HHI.PR ---
Subjective Remarks This is a pleasant 66 y/o Male with Schizophrenia, Bradycardia status post Pacemaker placement, Pituitary adenoma status post tumor resection, GERD, he was found unconscious in the bathtub, with Diagnosis of Syncopal episode, Seen in his bedroom patient still under anesthesia effect is somnolent, but able to wake up. not yet result of the Cardiac Cath in EMR, no new issues. following specialist recommendations, no nausea, vomit or diarrhea. Objective Vital Signs Date Time Temp Pulse Resp B/P Pulse Ox O2 Delivery O2 Flow Rate FiO2 09/28/16 10:13 98 21 09/28/16 08:00 97.9 61 16 116/70 98 09/28/16 06:00 60 09/28/16 05:00 60 09/28/16 04:42 21 09/28/16 04:00 64 09/28/16 03:00 60 09/28/16 03:00 97.5 64 14 87/66 98 09/28/16 02:00 60 09/28/16 01:00 60 09/28/16 00:00 60 09/27/16 23:00 97.2 60 14 102/62 99 09/27/16 23:00 60 09/27/16 22:00 76 09/27/16 21:00 66 09/27/16 20:00 60 09/27/16 19:00 98.4 62 18 109/63 99 09/27/16 19:00 81 09/27/16 16:30 98.3 70 18 104/70 100 09/27/16 16:23 77 09/27/16 16:00 97.9 60 16 98/65 100 I/O 09/27/16 09/27/16 09/27/16 09/28/16 09/28/16 09/28/16 07:00 15:00 23:00 07:00 15:00 23:00 Intake Total 200 ml 480 ml Output Total 200 ml 575 ml 1000 ml Balance 0 ml -575 ml -520 ml Intake Oral 200 ml 480 ml Output Urine Total 200 ml 575 ml 1000 ml Result Diagram: 09/27/16 0711 09/27/16 07 Imaging Last Impressions Head CT 09/26/16 0154 Signed Impressions: Service Date/Time: Monday, September 26, 2016 02:37 - CONCLUSION: 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 Stable suprasellar soft tissue mass. No evidence of acute hemorrhage or edema. Jalen Palomares MD Chest X-Ray 09/26/16 0154 Signed Impressions: Service Date/Time: Monday, September 26, 2016 02:06 - CONCLUSION: Normal examination. Left subclavian bipolar pacer in good position Jalen Palomares MD Carotid Artery Ultrasound 09/26/16 0000 Signed Impressions: Service Date/Time: Monday, September 26, 2016 12:22 - CONCLUSION: 1. Patent carotid arteries bilaterally. 2. Antegrade flow involving both vertebral arteries. Sumanth Merino Jr., MD Procedures No procedures performed Other Results Laboratory Tests Test 09/26/16 09/26/16 09/27/16 01:55 05:40 07:11 Prothrombin Time 11.3 SEC Prothromb Time International 1.0 RATIO Ratio Activated Partial 28.3 SEC Thromboplast Time Hemoglobin A1c 6.0 % Magnesium Level 2.4 MG/DL Total Creatine Kinase 63 U/L B-Type Natriuretic Peptide 155 PG/ML Lipase 198 U/L Free Thyroxine 1.20 NG/DL Thyroid Stimulating Hormone 0.122 uIU/ML 3rd Gen Ethyl Alcohol Level LESS THAN 3 MG/DL Urine Color LIGHT-YELLOW Urine Turbidity CLEAR Urine pH 5.0 Urine Specific [place] 1.003 Urine Protein NEG mg/dL Urine Glucose (UA) NEG mg/dL Urine Ketones NEG mg/dL Urine Occult Blood NEG Urine Nitrite NEG Urine Bilirubin NEG Urine Urobilinogen LESS THAN 2.0 MG/DL Urine Leukocyte Esterase NEG Urine RBC LESS THAN 1 /hpf Microscopic Urinalysis Comment CULT NOT INDICATED Total Bilirubin 0.1 MG/DL Aspartate Amino Transf 24 U/L (AST/SGOT) Alanine Aminotransferase 33 U/L (ALT/SGPT) Alkaline Phosphatase 72 U/L Troponin I 0.03 NG/ML Total Protein 6.5 GM/DL Albumin 3.3 GM/DL Urine Opiates Screen NEG Urine Barbiturates Screen NEG Urine Amphetamines Screen NEG Urine Benzodiazepines Screen NEG Urine Cocaine Screen NEG Urine Cannabinoids Screen NEG White Blood Count 6.9 TH/MM3 Red Blood Count 4.12 MIL/MM3 Hemoglobin 10.8 GM/DL Hematocrit 33.3 % Mean Corpuscular Volume 80.6 FL Mean Corpuscular Hemoglobin 26.2 PG Mean Corpuscular Hemoglobin 32.5 % Concent Red Cell Distribution Width 15.5 % Platelet Count 173 TH/MM3 Mean Platelet Volume 9.0 FL Neutrophils (%) (Auto) 37.6 % Lymphocytes (%) (Auto) 55.1 % Monocytes (%) (Auto) 5.4 % Eosinophils (%) (Auto) 1.3 % Basophils (%) (Auto) 0.6 % Neutrophils # (Auto) 2.6 TH/MM3 Lymphocytes # (Auto) 3.8 TH/MM3 Monocytes # (Auto) 0.4 TH/MM3 Eosinophils # (Auto) 0.1 TH/MM3 Basophils # (Auto) 0.0 TH/MM3 CBC Comment DIFF FINAL Differential Comment Sodium Level 144 MEQ/L Potassium Level 3.6 MEQ/L Chloride Level 110 MEQ/L Carbon Dioxide Level 27.4 MEQ/L Anion Gap 7 MEQ/L Blood Urea Nitrogen 7 MG/DL Creatinine 0.70 MG/DL Estimat Glomerular Filtration 138 ML/MIN Rate Random Glucose 85 MG/DL Calcium Level 8.9 MG/DL Objective Remarks GENERAL: Well nourished in NAD SKIN: Warm and dry. HEAD: Atraumatic. Normocephalic. EYES: Pupils equal and round. No scleral icterus. No injection or drainage. ENT: No nasal bleeding or discharge. Mucous membranes pink and moist. NECK: Trachea midline. No JVD. CARDIOVASCULAR: Regular rate and rhythm. RESPIRATORY: No accessory muscle use. Clear to auscultation. Breath sounds equal bilaterally. GASTROINTESTINAL: Abdomen soft, non-tender, nondistended. Hepatic and splenic margins not palpable. MUSCULOSKELETAL: Extremities without clubbing, cyanosis, or edema. No obvious deformities. 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 PSYCHIATRIC: Difficult to evaluate. Medications and IVs Current Medications Medications (Trade) Dose Ordered Sig/Albert Route Start Time Stop Time Status Last Admin (Cardizem Cd) 180 mg DAILY PO 09/26/16 09:00 09/28/16 12:56 (Florinef) 0.2 mg DAILY PO 09/26/16 09:00 09/28/16 12:57 (risperDAL) 2 mg HS PO 09/26/16 21:00 09/27/16 21:32 (NS Flush) 2 ml UNSCH PRN IV FLUSH 09/26/16 05:15 (NS Flush) 2 ml BID IV FLUSH 09/26/16 09:00 09/27/16 21:32 (Synthroid) 25 mcg DAILY@0600 PO 09/26/16 06:00 09/28/16 06:25 (Synthroid) 112 mcg DAILY@0600 PO 09/26/16 06:00 09/28/16 06:00 (Flonase Zachary Spr) 1 spray BID EACH NARE 09/26/16 09:00 09/27/16 21:00 (Protonix) 40 mg DAILY PO 09/26/16 09:00 09/28/16 12:56 (Morphine Inj) 1 mg Q4H PRN IV PUSH 09/26/16 08:45 (Nitroglycerin 2% Oint) 0.5 inch Q6H PRN TOPICAL 09/26/16 08:45 (Aspirin) 325 mg DAILY PO 09/26/16 09:00 09/27/16 09:21 (D50w (Vial) Inj) 50 ml UNSCH PRN IV 09/26/16 08:45 (Glucagon Inj) 1 mg UNSCH PRN OTHER 09/26/16 08:45 (Keppra) 1,000 mg Q12HR PO 09/26/16 21:00 09/28/16 12:55 A/P Assessment and Plan 1. Syncope suspected seizure activity, found slumped over in bathtub, Urinary incontinence when found, EEG abnormal, as per Neurology started on Keppra abnormal Stress test status post Cardiac Catheterization not yet result in EMR his Carotid US WNL, Pacemaker interrogated by video conference specialist. 2. Headache for the last three weeks before coming to ER, history of Pituitary mass that could not be completely removed Keppra 1000 BID started by Neurology, Seizure precautions 3. Unstable Angina Nuclear Stress test showed ischemia, for Cardiac Catheterization 4. Orthostatic BP chronic, continue Home Fludrocortisone, Silvino Hose, PT daily for outpatient PT 5. Schizophrenia to continue Home medicines. Follow laboratory in am tomorrow. DVT prophylaxis: scds/teds Discharge Planning Awaiting final recommendations by Cardiology and Neurology specialist for discharge Angel Dinh MD Sep 28, 2016 13:48
[2016-09-28] MEDS ORDERED: IOHEXOL 350 MG/ML 100 ML BTL (for Cath Lab) OTHER ONE (14:00)
[2016-09-28] MEDS ORDERED: HEPARIN-NS/PF INJ 500 ML ONE (14:08)
[2016-09-28] MEDS ORDERED: MIDAZOLAM HCL 5 MG/5 ML VIAL ONE (14:10)
--- NOTE | 2016-09-28 15:45 | CATHPROC ---
[facility] HIS Report Study Information Study Number Admission Scheduled Start Study Start [id number] Sep 27 2016 1:59PM 09/28/2016 Sep 28 2016 1:32PM [place] Service Cardiac Catheterization Admit Source Facility Department Emergency department [facility] - Customer Contact Representative Physician and Clinical Staff Initial Yissel Fuller Counter Clerk Rod Ryder,BRITTNEY Recorder Peggy Weems RCIS TECH2 Scrub Kareem Hughes RCIS(BS) Procedures Performed Procedure Location (Site) Vessel Name Angiogram LV LV Ventricle Coronary Angiograms LCA Left Coronary Coronary Angiograms RCA Right Coronary Equipment Time Oracle Applications Analyst Description Size Mfg Part Number Used/Scraped TRANSDUCER, TRUWAVE [id number] 14:27 HERMAN RIBERA * Used W/STOCKCOCK *[id number] *[id number] *[id number] *[id number] 14:27 MEDLINE IND[employer] PACK, CCL CUSTOM * Used *[id number] 14:27 Zoyi PACER PEN, SKIN DUAL W/ RULER * Used *[id number] 14:27 [employer] WIRE, 3MMJ .035 180CM 180CM Used *[id number] PROBE COVER, STERILE [id number] 14:27 [employer] MEDICAL * Used ULTRASOUND W/ GEL *[id number] 14:27 NAMIC MANIFOLD, 4 PORT * Used *[id number] 14:27 NAMIC TUBING, HIGH PRESSURE 48" 48" Used *[id number] 14:27 NYCOMED OMNIPAQUE, 350 MG, 150ML 150ML [id number] Used 14:49 NYCOMED OMNIPAQUE, 350 MG, 50ML 50ML [id number] Used [id number] 14:27 DALAL MEDICAL BLANKET,WARM AIR CCL * Used *[id number] 14:27 TERUMO MEDICAL SHEATH, FR5 TERUMO (10CM) FR 5 [id number] Used History: Current Medications Medication Dosage/Unit Route Frequency Last Date/Time Taken ASA Synthroid NTG SL CARDIZEM History: Allergies Allergy Reaction No Known Allergies History: Risk Factors Family History of Hypertension Dyslipidemia Previous AL Previous Heart Failure Premature CAD Yes Yes Yes No No Prior Valve Prior PCI Prior CABG Surgery No No No Cerebrovascular Peripheral Artery Chronic Lung On Dialysis Diabetes Diabetes Therapy Disease Disease Disease No Yes Yes No Yes Oral History: Symptoms/Diagnosis Selection Items Chest pain Syncope History: Stress Tests Stress or Imaging Studies Performed No History: Other Disease Selection Items Gerd History: Other Current Smoker Method No Cigarettes Labs Hgb (g/dl) Hct (%) WBC (l/cumm) Platelets (thousands) 12.00-18.00 37.00-55.00 4.80-10.80 140.00-450.00 10.8 33.3 6.9 173 Glucose (mg/dl) BUN (mg/dl) Creatinine (mg/dl) BUN:Creatinine (1:x) 60.00-110.00 8.00-20.00 0.10-9.00 10.00-20.00 85 7 0.7 10 Na (meq/l) K (meq/l) Cl (meq/l) CO2 (mmol/L) Ca (mg/dl) 138.00-146.00 3.80-5.10 101.00-111.00 23.00-30.00 9.00-10.50 144 3.6 110 27.4 8.9 INR (PTT:PT) 0.50-2.00 1 Troponin I (ng/ml) CPK (u/l) CPK-MB (ng/ML) 0.40-2.30 37.00-289.00 0.00-7.00 0.03 72 Not Drawn Medication Medication Total Dose (Bolus/Oral) Medication Total Dosage/Unit 1% XYLOCAINE 20 mL FENTANYL 50 mcg VERSED 4 mg Medications (Bolus/Oral) Medication Time Given Dosage/Unit Administered By Reason VERSED 09/28/2016 2:40:12 PM 2 mg Ferlitto, Rod 2 mg VERSED given in lab by Rod Ryder RN in Left Forearm via Peripheral IV. Ordered by Yissel Rooney. FENTANYL 09/28/2016 2:40:41 PM 50 mcg Ferlitto, Rod 50 mcg FENTANYL given in lab by Rod Ryder RN in Left Forearm via Peripheral IV. Ordered by Yissel Bo. VERSED 09/28/2016 2:43:22 PM 2 mg Ferlitto, Rod 2 mg VERSED given in lab by Rod Ryder RN in Left Forearm via Peripheral IV. Ordered by Yissel Rooney. 1% XYLOCAINE 09/28/2016 2:45:05 PM 20 mL Quadrat, [place] 20 mL 1% XYLOCAINE given in lab by Yissel Rooney in Right Groin via Subcutaneous. Medication (Drip) Medication Time Given Dosage/Unit Concentration/Unit Diluent (ml) Solution IV Solutions 09/28/2016 2:04:45 PM 0 mL (IV) 1000 NaCl .9 Patient arrived on IV Solutions given by Rod Ryder RN in Right Antecubital via Peripheral IV. P ump/Drip Flow = 20 ml/hr using NaCl .9. Initial Case Assessment Cardiovascular HR Rhythm NIBP Chest Pain 94 sr 120/73 0 Circulatory - Right Pulses Dorsalis Pedis Femoral 3 3 Scale (0,1,2,3,4,d) Circulatory - Left Pulses Dorsalis Pedis Femoral 3 3 Scale (0,1,2,3,4,d) Neurological State Oriented to time-place- Alert Moves all extremities person Respiration - General Respiration Rate SpO2 (%) (B/min) 10 99 Final Case Assessment Cardiovascular HR Rhythm NIBP Chest Pain 62 sr/pvc's 117/76 0 Neurological State Oriented to time-place- Alert Moves all extremities person Respiration - General Respiration Rate SpO2 (%) (B/min) 10 99 Chronological Log Time Study Chronological Log 14:02:36 Patient arrived via Bed. 14:02:37 Patient Name, D.O.B, / Armband Verified By R.N. 14:02:39 Consent signed by the physician and the patient and verified by the Customer Contact Representative staff. 14:02:40 Pre-op and post- op instructions given; patient acknowledges understanding of instructions. 14:02:41 Verbal Stimulation=2 Physical Stimulation=2 Airway=2 Respiration=2 TOTAL=8. (0=absent, 1=li mited, 2=present) 14:02:43 Anesthesia at bedside. Assumes care of patient. 14:02:51 Presedation assessment performed by Customer Contact Representative RN. 14:02:56 Patient has been NPO for More than 6Hrs. 14:02:57 Skin Breakdown-none 14:03:00 Sue Prominences Protected 14:04:43 A # 20 IV was noted in the Forearm (left). Grade = patent Patient arrived on IV Solutions given by Rod Ryder RN in Right Antecubital via Peripheral IV. Pump/Drip Flow = 20 14:04:45 ml/hr using NaCl .9. 14:05:20 History and physical on the chart or being dictated. Vitals capture started with the following parameters, Patient=Adult, Interval=5 min, Initial Pr lqewec=534 mmHg, 14:07:30 Deflation Rate=5 mmHg Assessment: Initial Case, HR=94 BPM, Rhythm=sr, QRCR=780/73 mmhg, Chest Pain=0 Right Pulses: Bairon Ped=3, Femoral=3 14:07:43 Left Pulses: Bairon Ped=3, Femoral=3 Neurological: State=Alert, Ox3, IBARRA Respiration: Resp=10 B/min, SpO2=99 % Vitals capture started with the following parameters, Patient=Adult, Interval=5 min, Initial Pr lebeci=339 mmHg, 14:08:53 Deflation Rate=5 mmHg Vitals capture started with the following parameters, Patient=Adult, Interval=5 min, Initial Pr lidxij=255 mmHg, 14:11:47 Deflation Rate=5 mmHg 14:11:51 Reference ECG taken 14:12:23 HR=63 bpm, FOUF=997/63 mmhg, SpO2=99.0 %, Resp=24 B/min, Pain=0, Last=10, Felipe=2 14:17:20 HR=60 bpm, LKHH=420/73 mmhg, SpO2=99.0 %, Resp=12 B/min 14:20:16 Bilateral groins prepped with 2% chlorhexidine, and draped after a 3 min. waiting time. 14:22:23 HR=59 bpm, UTQW=984/70 mmhg, MfK6=634.0 %, Resp=10 B/min 14:23:21 Pressure channel 1 zeroed. 14:23:32 MD paged 14:27:24 HR=59 bpm, XAJK=057/67 mmhg, JzZ2=318.0 %, Resp=13 B/min, Pain=0, Last=10, Felipe=2 14:32:21 HR=60 bpm, ZDYK=509/75 mmhg, QjK8=096.0 %, Resp=22 B/min, Pain=0, Last=10, Felipe=2 14:37:24 HR=59 bpm, JMTK=217/66 mmhg, SpO2=99.0 %, Resp=15 B/min, Pain=0, Last=10, Felipe=2 14:38:56 MD arrived. 14:40:12 2 mg VERSED given in lab by Rod Ryder, BRITTNEY in Left Forearm via Peripheral IV. Ordered b y Yissel Rooney. 14:40:41 50 mcg FENTANYL given in lab by Rod Ryder RN in Left Forearm via Peripheral IV. Order ed by Yissel Rooney. 14:42:21 HR=60 bpm, GRDQ=643/68 mmhg, DfF1=846.0 %, Resp=13 B/min, Pain=0, Last=10, Felipe=2 14:43:22 2 mg VERSED given in lab by Rod Ryder RN in Left Forearm via Peripheral IV. Ordered b y Yissel Rooney. Time Out. Correct patient, correct procedure,correct physician, power injector loaded with cont rast with surgical team 14:44:30 present. Time Out Concurred by MD and individual staff in procedure 14:45:03 Case Start 14:45:05 20 mL 1% XYLOCAINE given in lab by Yissel Rooney in Right Groin via Subcutaneous. 14:46:28 Access site was Right Femoral Artery. 14:46:36 A SHEATH, FR5 TERUMO (10CM) FR 5 was advanced into the Fem Art (right) using the Percutaneo us technique. A PIGTAIL ANG. INFINITI CATHETER FR 5 was advanced over a wire. OMNIPAQUE, 350 MG, 150ML 150ML was used 14:46:57 for injections. 14:47:24 HR=60 bpm, GRXX=143/66 mmhg, SpO2=91.0 %, Resp=13 B/min Recorded Pressure: LV, HR=60, Condition=Condition 1 14:48:00 (Left Ventricle) LV 91/2/3 14:49:07 The LV was injected at 12 cc/sec for a total of 30. OMNIPAQUE, 350 MG, 50ML 50ML used. Recorded Pressure: LV, Ao, HR=60, Condition=Condition 1 14:49:55 (Left Ventricle) LV 96/0/5, (Aorta) Ao 95/44/65 14:50:34 Catheter was removed A JL 4.0 INFINITI CATHETER FR 5 was advanced over a wire. OMNIPAQUE, 350 MG, 150ML 150ML was u sed for 14:50:36 injections. 14:51:42 The LCA was injected and visualized at various angles. OMNIPAQUE, 350 MG, 150ML 150ML use d. 14:52:25 HR=62 bpm, JFGB=388/58 mmhg, SpO2=99.0 %, Resp=7 B/min 14:53:01 Catheter was removed A AR MOD INFINITI CATHETER FR 5 was advanced over a wire. OMNIPAQUE, 350 MG, 150ML 150ML was u sed for 14:53:02 injections. 14:55:03 The RCA was injected and visualized at various angles. OMNIPAQUE, 350 MG, 150ML 150ML use d. 14:55:15 Catheter was removed 14:55:17 Case End 14:57:22 HR=60 bpm, NIBP=98/62 mmhg, GpN0=687.0 %, Resp=8 B/min 15:02:56 HR=62 bpm, JDPK=764/64 mmhg, SpO2=98.0 %, Resp=12 B/min, Pain=0, Last=10, Felipe=2 15:05:20 Sheath removed; pressure applied to access site. 15:07:25 HR=59 bpm, UNZM=961/66 mmhg, QgK2=184.0 %, Resp=19 B/min, Pain=0, Last=10, Felipe=2 15:12:26 HR=60 bpm, IOIS=777/64 mmhg, VjV6=467.0 %, Resp=12 B/min, Pain=0, Last=10, Felipe=2 15:17:27 HR=62 bpm, OGOZ=834/76 mmhg, SpO2=99.0 %, Resp=9 B/min, Pain=0, Last=10, Felipe=2 15:21:47 Hemostasis obtained. 15:22:06 Sterile dressing applied to site 15:22:13 No case complications noted. 15:22:15 Cine recording checked. 15:22:16 Bedside Report will be given. Assessment: Final Case, HR=62 BPM, Rhythm=sr/pvc's, PIOA=076/76 mmhg, Chest Pain=0 15:22:18 Neurological: State=Alert, Ox3, IBARRA Respiration: Resp=10 B/min, SpO2=99 % 15:24:19 Patient moved to bed 15:24:29 Patient transported to [facility] End Study - Contrast Media Used In Study Contrast Total Opened (mL) Total Used (mL) Total Wasted (mL) Omnipaque 80 80 0 End Study - Maximum Contrast Load Max Contrast Load (mL) 585.7 End Study - Radiation Exposure Fluoro Time (minutes) 1.3 End Study - Sheaths Sheaths Pulled By Sheath Hold Time (min) Kareem Hughes 16 End Study - Patient Disposition Complications Transferred To Telemetry Bed
--- NOTE | 2016-09-28 16:52 | HM ---
Date Performed: 09/28/2016 Time Performed: 08:15:00 HOOKUP DATE: 09/28/16 08:15:00 AM Fri ANALYSIS START TIME: 09/28/2016 8:20:00 AM ANALYSIS END TIME: 09/29/2016 8:23:59 AM PATIENT AGE: 66 PATIENT HEIGHT PATIENT WEIGHT DRUG LIST PATIENT DIAGNOSIS TEST NARRATIVE: The patient's average heart rate was 62 BPM. Heart rates greater than 120 B PM were noted < 1% of the time. Heart rates less than 50 BPM were noted < 1% of the time. No tosha ses exceeding 2.0 seconds were noted. 1104 ventricular ectopics, which represented 1% of the tota l beat count, were noted. The highest ventricular ectopic frequency occurred from 08:00 AM to 09:00 AM Fri. During this time 84 VE(s) occurred. Ventricular ectopics were observed as 1049 isolated omid t(s), as 26 couplet(s) and as 1 run(s). 425 supraventricular ectopics, which represented < 1% of the total beat count, were noted. The highest supraventricular ectopic frequency occurred from 11:00 AM to 12:00 PM Fri. During this time 81 SVE(s) occurred. No episodes of ST depression (defined as -1.0 mm or more) were noted in channel 1. No episodes of ST depression (defined as -1.0 mm or mor e) were noted in channel 2. No episodes of ST depression (defined as -1.0 mm or more) were noted in channel 3. TEST INTERPRETATION: Sinus rhythm Atrial pacing PACs PVCs Nonsustained atrial tachycardia Signed by : Yissel Rooney
--- NOTE | 2016-09-28 18:25 | HHI.PR ---
Review/Management Diagnosis most likely a seizure stable suprasellar mass Plan keppra 1000 mg bid Diagnosis/Plan: Subjective Subjective Comments No acute events reported No seizures Active Medications Current Medications Medications (Trade) Dose Ordered Sig/Albert Route Start Time Stop Time Status Last Admin (Palmer Vanessa) 180 mg DAILY PO 09/26/16 09:00 09/28/16 12:56 (Florinef) 0.2 mg DAILY PO 09/26/16 09:00 09/28/16 12:57 (risperDAL) 2 mg HS PO 09/26/16 21:00 09/27/16 21:32 (NS Flush) 2 ml UNSCH PRN IV FLUSH 09/26/16 05:15 (NS Flush) 2 ml BID IV FLUSH 09/26/16 09:00 09/28/16 12:30 (Synthroid) 25 mcg DAILY@0600 PO 09/26/16 06:00 09/28/16 06:25 (Synthroid) 112 mcg DAILY@0600 PO 09/26/16 06:00 09/28/16 06:00 (Flonase Zachary Spr) 1 spray BID EACH NARE 09/26/16 09:00 09/27/16 21:00 (Protonix) 40 mg DAILY PO 09/26/16 09:00 09/28/16 12:56 (Morphine Inj) 1 mg Q4H PRN IV PUSH 09/26/16 08:45 (Nitroglycerin 2% Oint) 0.5 inch Q6H PRN TOPICAL 09/26/16 08:45 (Aspirin) 325 mg DAILY PO 09/26/16 09:00 09/28/16 12:30 (D50w (Vial) Inj) 50 ml UNSCH PRN IV 09/26/16 08:45 (Glucagon Inj) 1 mg UNSCH PRN OTHER 09/26/16 08:45 (Keppra) 1,000 mg Q12HR PO 09/26/16 21:00 09/28/16 12:55 Allergies Allergies Coded Allergies MRI PRECAUTION (Verified Adverse Reaction, Severe, NON MRI CONDITIONAL PACEMAKER 08/24/15 KMD, 09/26/16) Exam I&O / VS 09/27/16 09/27/16 09/28/16 15:00 23:00 07:00 Intake Total 480 ml Output Total 575 ml 1000 ml Balance -575 ml -520 ml Intake Oral 480 ml Output Urine Total 575 ml 1000 ml Vital Signs Date Time Temp Pulse Resp B/P Pulse Ox O2 Delivery O2 Flow Rate FiO2 09/28/16 10:13 98 21 09/28/16 08:00 97.9 61 16 116/70 98 09/28/16 06:00 60 09/28/16 05:00 60 09/28/16 04:42 21 09/28/16 04:00 64 09/28/16 03:00 60 09/28/16 03:00 97.5 64 14 87/66 98 09/28/16 02:00 60 09/28/16 01:00 60 09/28/16 00:00 60 09/27/16 23:00 97.2 60 14 102/62 99 09/27/16 23:00 60 09/27/16 22:00 76 09/27/16 21:00 66 09/27/16 20:00 60 09/27/16 19:00 98.4 62 18 109/63 99 09/27/16 19:00 81 Exam Comments alert, follow commands cn intact motor 5/5 Agusto Elder PhD Sep 28, 2016 18:25
[2016-09-28] MEDS: risperiDONE 1 MG TAB PO SCH (21:51)
[2016-09-28] MEDS: FLUTICASONE PROPIONATE 50 MCG/ACT 16 GM NASAL SPRAY EACH NARE SCH (21:52)
--- NOTE | 2016-09-28 22:52 | MA ---
cc: YISSEL ROONEY DATE 09/28/16 INDICATION Nip-KN-uyogkkgfd myocardial function, class IV angina. PROCEDURE PERFORMED 1. Retrograde left heart catheterization with left ventriculography and selective coronary angiography. 2. Moderate sedation. ACCESS SITE Right femoral artery. EQUIPMENT USED 5 Kazakh pigtail catheter. JL-4 and AR modified coronary artery catheters. MEDICATIONS Versed IV, fentanyl IV. CONTRAST The contrast is Omnipaque 80 cc. COMPLICATIONS None. BLOOD LOSS Less than 10 cc. METHOD OF HEMOSTASIS Manual compression. RESULTS HEMODYNAMICS Heart rate 60 beats per minute. Left ventricular end diastolic pressure 5 mmHg. Left ventricle 95/5. Aorta 95/44/65. LEFT VENTRICULOGRAPHY The left ventricular ejection fraction 55%. Wall motion normal. No mitral regurgitation. CORONARY ANGIOGRAPHY Left main coronary artery patent. Left anterior descending artery patent. D1 patent, D2 patent, D3 patent. Left circumflex artery patent. OM1 patent, OM2 patent, OM3 patent. Right coronary is a dominant vessel which is patent. PDA patent. PLD patent. DIAGNOSIS 1. Patent coronary arteries. 2. Preserved left ventricular systolic function. DISPOSITION Mr. Chaudhry can be reassured about his cardiac status. His study revealed no evidence of significant obstructive coronary artery disease and preserved left ventricular systolic function. He will be monitored on telemetry after his procedure. Yissel Rooney MD OFarhad/CORWIN /3:05 PM /10:32 PM [place]
[2016-09-29] VITALS (24 sets, daily range): BP systolic 94–113; BP diastolic 53–66; PULSE 59–68; RESP 14–18; TEMP 98–98.4; O2SAT 94–100
[2016-09-29] MEDS: LEVOTHYROXINE SODIUM 112 MCG TAB PO SCH (05:59)
[2016-09-29] MEDS: LEVOTHYROXINE SODIUM 25 MCG TAB PO SCH (05:59)
[2016-09-29 06:14] LABS: BICARBONATE 28.4 MEQ/L (21.0-32.0); MAGNESIUM 2.4 MG/DL (1.5-2.5); POTASSIUM 3.3 MEQ/L (3.5-5.1)
[2016-09-29] MEDS: PANTOPRAZOLE SOD 40 MG DELAYED RELEASE TAB PO SCH (08:27)
[2016-09-29] MEDS: FLUDROCORTISONE ACETATE 0.1 MG TAB PO SCH (08:27)
[2016-09-29] MEDS: DILTIAZEM-CD 180 MG CAP ER PO SCH (08:27)
[2016-09-29] MEDS: levETIRAcetam 500 MG TAB PO SCH (08:27)
[2016-09-29] MEDS: SODIUM CHLORIDE 0.9% FLUSH 10 ML FLUSH IV FLUSH SCH (08:32)
[2016-09-29] MEDS: FLUTICASONE PROPIONATE 50 MCG/ACT 16 GM NASAL SPRAY EACH NARE SCH (08:32)
[2016-09-29] MEDS: ASPIRIN 325 MG TAB PO SCH (09:00)
--- NOTE | 2016-09-29 14:30 | HHI.PR ---
Subjective Remarks This is a pleasant 66 y/o Male with Schizophrenia, Bradycardia status post Pacemaker placement, Pituitary adenoma status post tumor resection, GERD, he was found unconscious in the bathtub, with Diagnosis of Syncopal episode, Seen in his bedroom patient still under anesthesia effect is somnolent, but able to wake up. not yet result of the Cardiac Cath in EMR, no new issues. following specialist recommendations, no nausea, vomit or diarrhea. 09/29: Seen in his bedroom discussed with Nurse Mr. Madison no new issues, as per employee relations specialist to reassure the patient asked for Clearance by specialists not yet in EMR, No nausea, vomit or diarrhea, no chest pain. Objective Vital Signs Date Time Temp Pulse Resp B/P Pulse Ox O2 Delivery O2 Flow Rate FiO2 09/29/16 11:30 98.0 60 16 113/66 100 09/29/16 11:01 60 09/29/16 10:00 64 09/29/16 09:09 94 21 09/29/16 09:00 64 09/29/16 08:01 98.2 63 18 105/62 99 09/29/16 08:00 62 09/29/16 07:01 60 09/29/16 06:00 60 09/29/16 05:00 60 09/29/16 04:00 60 09/29/16 03:00 98.4 60 14 94/53 99 09/29/16 03:00 59 09/29/16 02:00 60 09/29/16 01:00 60 09/29/16 00:00 68 09/28/16 23:00 60 09/28/16 23:00 98.2 70 18 119/70 98 09/28/16 22:00 62 09/28/16 21:00 62 09/28/16 20:30 99 21 09/28/16 20:00 60 09/28/16 19:00 60 09/28/16 19:00 97.6 64 18 112/76 98 09/28/16 18:00 60 09/28/16 17:00 60 09/28/16 16:00 60 09/28/16 15:30 97.4 61 18 106/64 99 09/28/16 15:00 60 I/O 09/28/16 09/28/16 09/28/16 09/29/16 09/29/1617 07:00 15:00 23:00 07:00 15:00 23:00 Intake Total 480 ml 480 ml 1920 ml Output Total 1000 ml 1125 ml 1750 ml Balance -520 ml -645 ml 170 ml Intake Oral 480 ml 480 ml 1920 ml Output Urine Total 1000 ml 1125 ml 1750 ml # Bowel Movements 0 Result Diagram: 09/27/16 0711 09/29/16 0502 Imaging Last Impressions Head CT 09/26/16153 Signed Impressions: Service Date/Time: Monday, September 26, 2016 02:37 - CONCLUSION: 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 Stable suprasellar soft tissue mass. No evidence of acute hemorrhage or edema. Jalen Palomares MD Chest X-Ray 09/26/16153 Signed Impressions: Service Date/Time: Monday, September 26, 2016 02:06 - CONCLUSION: Normal examination. Left subclavian bipolar pacer in good position Jalen Palomares MD Carotid Artery Ultrasound 09/26/16 0000 Signed Impressions: Service Date/Time: Monday, September 26, 2016 12:22 - CONCLUSION: 1. Patent carotid arteries bilaterally. 2. Antegrade flow involving both vertebral arteries. Sumanth Merino Jr., MD Procedures Stress Test Cardiac Cath Other Results Laboratory Tests Test 09/26/16 09/26/16 09/27/16 09/29/16 01:55 05:40 07:11 05:02 Prothrombin Time 11.3 SEC Prothromb Time International 1.0 RATIO Ratio Activated Partial 28.3 SEC Thromboplast Time Hemoglobin A1c 6.0 % Total Creatine Kinase 63 U/L B-Type Natriuretic Peptide 155 PG/ML Lipase 198 U/L Free Thyroxine 1.20 NG/DL Thyroid Stimulating Hormone 0.122 uIU/ML 3rd Gen Ethyl Alcohol Level LESS THAN 3 MG/DL Urine Color LIGHT-YELLOW Urine Turbidity CLEAR Urine pH 5.0 Urine Specific [place] 1.003 Urine Protein NEG mg/dL Urine Glucose (UA) NEG mg/dL Urine Ketones NEG mg/dL Urine Occult Blood NEG Urine Nitrite NEG Urine Bilirubin NEG Urine Urobilinogen LESS THAN 2.0 MG/DL Urine Leukocyte Esterase NEG Urine RBC LESS THAN 1 /hpf Microscopic Urinalysis Comment CULT NOT INDICATED Total Bilirubin 0.1 MG/DL Aspartate Amino Transf 24 U/L (AST/SGOT) Alanine Aminotransferase 33 U/L (ALT/SGPT) Alkaline Phosphatase 72 U/L Troponin I 0.03 NG/ML Total Protein 6.5 GM/DL Albumin 3.3 GM/DL Urine Opiates Screen NEG Urine Barbiturates Screen NEG Urine Amphetamines Screen NEG Urine Benzodiazepines Screen NEG Urine Cocaine Screen NEG Urine Cannabinoids Screen NEG White Blood Count 6.9 TH/MM3 Red Blood Count 4.12 MIL/MM3 Hemoglobin 10.8 GM/DL Hematocrit 33.3 % Mean Corpuscular Volume 80.6 FL Mean Corpuscular Hemoglobin 26.2 PG Mean Corpuscular Hemoglobin 32.5 % Concent Red Cell Distribution Width 15.5 % Platelet Count 173 TH/MM3 Mean Platelet Volume 9.0 FL Neutrophils (%) (Auto) 37.6 % Lymphocytes (%) (Auto) 55.1 % Monocytes (%) (Auto) 5.4 % Eosinophils (%) (Auto) 1.3 % Basophils (%) (Auto) 0.6 % Neutrophils # (Auto) 2.6 TH/MM3 Lymphocytes # (Auto) 3.8 TH/MM3 Monocytes # (Auto) 0.4 TH/MM3 Eosinophils # (Auto) 0.1 TH/MM3 Basophils # (Auto) 0.0 TH/MM3 CBC Comment DIFF FINAL Differential Comment Sodium Level 144 MEQ/L Potassium Level 3.3 MEQ/L Chloride Level 106 MEQ/L Carbon Dioxide Level 28.4 MEQ/L Anion Gap 10 MEQ/L Blood Urea Nitrogen 13 MG/DL Creatinine 0.76 MG/DL Estimat Glomerular Filtration 125 ML/MIN Rate Random Glucose 133 MG/DL Calcium Level 8.6 MG/DL Phosphorus Level 4.6 MG/DL Magnesium Level 2.4 MG/DL Objective Remarks GENERAL: Well nourished in NAD SKIN: Warm and dry. HEAD: Atraumatic. Normocephalic. EYES: Pupils equal and round. No scleral icterus. No injection or drainage. ENT: No nasal bleeding or discharge. Mucous membranes pink and moist. NECK: Trachea midline. No JVD. CARDIOVASCULAR: Regular rate and rhythm. RESPIRATORY: No accessory muscle use. Clear to auscultation. Breath sounds equal bilaterally. GASTROINTESTINAL: Abdomen soft, non-tender, nondistended. Hepatic and splenic margins not palpable. MUSCULOSKELETAL: Extremities without clubbing, cyanosis, or edema. No obvious deformities. NEUROLOGICAL: somnolent due to Anesthesia effect, but awake eap consultant. PSYCHIATRIC: Difficult to evaluate. Medications and IVs Current Medications Medications (Trade) Dose Ordered Sig/Albert Route Start Time Stop Time Status Last Admin (Cardizem Cd) 180 mg DAILY PO 09/26/16 09:00 09/29/16 08:27 (Florinef) 0.2 mg DAILY PO 09/26/16 09:00 09/29/16 08:27 (risperDAL) 2 mg HS PO 09/26/16 21:00 09/28/16 21:51 (NS Flush) 2 ml UNSCH PRN IV FLUSH 09/26/16 05:15 (NS Flush) 2 ml BID IV FLUSH 09/26/16 09:00 09/29/16 08:32 (Synthroid) 25 mcg DAILY@0600 PO 09/26/16 06:00 09/29/16 05:59 (Synthroid) 112 mcg DAILY@0600 PO 09/26/16 06:00 09/29/16 05:59 (Flonase Zachary Spr) 1 spray BID EACH NARE 09/26/16 09:00 09/29/16 08:32 (Protonix) 40 mg DAILY PO 09/26/16 09:00 09/29/16 08:27 (Morphine Inj) 1 mg Q4H PRN IV PUSH 09/26/16 08:45 (Nitroglycerin 2% Oint) 0.5 inch Q6H PRN TOPICAL 09/26/16 08:45 (Aspirin) 325 mg DAILY PO 09/26/16 09:00 09/28/16 12:30 (D50w (Vial) Inj) 50 ml UNSCH PRN IV 09/26/16 08:45 (Glucagon Inj) 1 mg UNSCH PRN OTHER 09/26/16 08:45 (Keppra) 1,000 mg Q12HR PO 09/26/16 21:00 09/29/16 08:27 A/P Assessment and Plan 1. Syncope suspected seizure activity, found slumped over in bathtub, Urinary incontinence when found, EEG abnormal, as per Neurology started on Keppra abnormal Stress test status post Cardiac Catheterization not yet result in EMR his Carotid US WNL, Pacemaker interrogated, status post Cardiac cath Patent Coronary arteries, Preserved Left ventricular systolic function, to reassure the patient about his cardiac status. recommended to continue monitoring in Telemetry after procedure not yet cleared by Cardiology for discharge. 2. Headache Improved now. history of Pituitary mass that could not be completely removed Keppra 1000 BID started by Neurology, Seizure precautions 3. Unstable Angina Nuclear Stress test showed ischemia, Cardiac cath clean. 4. Orthostatic BP chronic, continue Home Fludrocortisone, Silvino Hose, PT daily for outpatient PT 5. Schizophrenia to continue Home medicines. Discussed with patient and his nurse Mr. Madison, all questions answered to the best of my abilities. DVT prophylaxis: scds/teds Discharge Planning once cleared by specialists Angel Dinh MD Sep 29, 2016 14:30
--- NOTE | 2016-09-29 17:24 | PD.CARD.PN ---
Subjective Subjective Remarks No CP or SOB, feels better Objective Medications Current Medications Medications (Trade) Dose Ordered Sig/Albert Route Start Time Stop Time Status Last Admin (Cardizem Cd) 180 mg DAILY PO 09/26/16 09:00 09/29/16 08:27 (Florinef) 0.2 mg DAILY PO 09/26/16 09:00 09/29/16 08:27 (risperDAL) 2 mg HS PO 09/26/16 21:00 09/28/16 21:51 (NS Flush) 2 ml UNSCH PRN IV FLUSH 09/26/16 05:15 (NS Flush) 2 ml BID IV FLUSH 09/26/16 09:00 09/29/16 08:32 (Synthroid) 25 mcg DAILY@0600 PO 09/26/16 06:00 09/29/16 05:59 (Synthroid) 112 mcg DAILY@0600 PO 09/26/16 06:00 09/29/16 05:59 (Flonase Zachary Spr) 1 spray BID EACH NARE 09/26/16 09:00 09/29/16 08:32 (Protonix) 40 mg DAILY PO 09/26/16 09:00 09/29/16 08:27 (Morphine Inj) 1 mg Q4H PRN IV PUSH 09/26/16 08:45 (Nitroglycerin 2% Oint) 0.5 inch Q6H PRN TOPICAL 09/26/16 08:45 (Aspirin) 325 mg DAILY PO 09/26/16 09:00 09/28/16 12:30 (D50w (Vial) Inj) 50 ml UNSCH PRN IV 09/26/16 08:45 (Glucagon Inj) 1 mg UNSCH PRN OTHER 09/26/16 08:45 (Keppra) 1,000 mg Q12HR PO 09/26/16 21:00 09/29/16 08:27 Vital Signs / I&O Vital Signs Date Time Temp Pulse Resp B/P Pulse Ox O2 Delivery O2 Flow Rate FiO2 09/29/16 16:01 62 09/29/16 15:15 98.0 60 16 96/64 99 09/29/16 15:00 62 09/29/16 14:00 60 09/29/16 13:00 60 09/29/16 12:00 60 09/29/16 11:30 98.0 60 16 113/66 100 09/29/16 11:00 60 09/29/16 10:00 64 09/29/16 09:09 94 21 09/29/16 09:00 64 09/29/16 08:01 98.2 63 18 105/62 99 09/29/16 08:00 62 09/29/16 07:01 60 09/29/16 06:00 60 09/29/16 05:00 60 09/29/16 04:00 60 09/29/16 03:00 98.4 60 14 94/53 99 09/29/16 03:00 59 09/29/16 02:00 60 09/29/16 01:00 60 09/29/16 00:00 68 09/28/16 23:00 60 09/28/16 23:00 98.2 70 18 119/70 98 09/28/16 22:00 62 09/28/16 21:00 62 09/28/16 20:30 99 21 09/28/16 20:00 60 09/28/16 19:00 60 09/28/16 19:00 97.6 64 18 112/76 98 09/28/16 18:00 60 I/O 09/28/16 09/28/16 09/28/16 09/29/16 09/29/16 09/29/16 07:00 15:00 23:00 07:00 15:00 23:00 Intake Total 480 ml 480 ml 1920 ml Output Total 1000 ml 1125 ml 1750 ml Balance -520 ml -645 ml 170 ml Intake Oral 480 ml 480 ml 1920 ml Output Urine Total 1000 ml 1125 ml 1750 ml # Bowel Movements 0 Physical Exam GENERAL: In NAD SKIN: Warm and dry. HEAD: Normocephalic. EYES: No scleral icterus. No injection or drainage. NECK: Supple, trachea midline. No JVD or lymphadenopathy. CARDIOVASCULAR: Regular rate and rhythm without murmurs, gallops, or rubs. RESPIRATORY: Breath sounds equal bilaterally. No accessory muscle use. GASTROINTESTINAL: Abdomen soft, non-tender, nondistended. MUSCULOSKELETAL: No cyanosis, or edema. 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 Stable suprasellar soft tissue mass. No evidence of acute hemorrhage or edema. Jalen Palomares MD Chest X-Ray 09/26/16153 Signed Impressions: Service Date/Time: Monday, September 26, 2016 02:06 - CONCLUSION: Normal examination. Left subclavian bipolar pacer in good position Jalen Palomares MD Carotid Artery Ultrasound 09/26/16 0000 Signed Impressions: Service Date/Time: Monday, September 26, 2016 12:22 - CONCLUSION: 1. Patent carotid arteries bilaterally. 2. Antegrade flow involving both vertebral arteries. uSmanth Merino Jr., MD Assessment and Plan Problem List: (1) Syncope (2) Angina at rest (3) Orthostatic hypotension (4) Pacemaker (5) Paranoid schizophrenia Assessment and Plan No new cardiac issues. Cath with patent cors and nl LV fx. Continue current program. OK to discharge home from cardiac standpoint. Problem Qualifiers (1) Syncope: Qualified Code: R55 - Syncope, unspecified syncope type Yissel Rooney MD Sep 29, 2016 17:24
[2016-09-29] MEDS ORDERED: ACETAMINOPHEN 500 MG CPLT PO ONE (17:30)
[2016-09-29] MEDS ORDERED: ASPI325T PO (18:04)
[2016-09-29] MEDS ORDERED: LEVE500 PO (18:04)
--- NOTE | 2016-09-29 18:06 | HHI.DS ---
Discharge Summary Admission Date Sep 27, 2016 at 13:59 Discharge Date: Sep 29, 2016 Admitting Diagnosis Sycope versus Seizure, generalized weakness (1) Syncope ICD Code: R55 Diagnosis: Principal (2) Pituitary adenoma ICD Code: D35.2 Diagnosis: Secondary (3) Headache ICD Code: R51 Diagnosis: Secondary (4) Seizure ICD Code: R56.9 Diagnosis: Principal Procedures Stress test Cardiac Cath Brief History - From Admission 66-year-old male with past medical history of schizophrenia, history of bradycardia status post pacemaker placement, orthostatic hypertension, history of pituitary adenoma status post resection of one tumor however he still has apparently a tumor in his pituitary gland that they could not resect, history of GERD presented to the emergency room because he was found unconscious in the bathtub. Patient states that yesterday afternoon he took a medication which he does not recall which one it was, felt dizzy and that is all he remembers. He states he was hot however he never took his temperature. He had a mild cough for 2-3 days which has not resolved. He has been having chest pains on and off. 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 He remembers having urinary incontinence which is the first time he has this and no bowel incontinence. He rates his chest pains for about a 5-6 out of 10, states is located in the middle of his chest with no radiation. He admits to shortness of breath which for him is chronic and has not worsened. He denies any nausea or vomiting, he admits to dizziness which is chronic as well. He states he cut back on his diet because he was diagnosed with diabetes he is not on insulin and doesn't think he takes pills. He states his appetite is good. Patient is somewhat a poor historian as he does not remember all the events. Per ER documentation: The patient was found by his family member at approximately 12:20 AM slumped over the side of the bathtub. Apparently he had gone in to use the bathroom. Family member reported that he was able to use the bathroom, however patient was incontinent prior to this. No prior history of incontinence. Apparently, patient had been complaining of a headache for the last 3 weeks. He reports that he has addressed this with his primary care physician, however no problems were identified. They report that he did have imaging done which was reportedly unremarkable. The patient does have a history of the brain tumor. He was originally diagnosed over 20 years ago and had a partial resection done at that time. The patient reports that he's been increasingly weak over the last few weeks with generalized weakness. He had a few minutes of chest pain, however it resolved. Pt has chronic dyspnea on exertion but no prior history of lung disease or congestive heart failure. no prior history of syncope and no prior history of seizure activity. 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 Stable suprasellar soft tissue mass. No evidence of acute hemorrhage or edema. Jalen Palomares MD Chest X-Ray 09/26/16153 Signed Impressions: Service Date/Time: Monday, September 26, 2016 02:06 - CONCLUSION: Normal examination. Left subclavian bipolar pacer in good position Jalen Palomares MD Carotid Artery Ultrasound 09/26/16 0000 Signed Impressions: Service Date/Time: Monday, September 26, 2016 12:22 - CONCLUSION: 1. Patent carotid arteries bilaterally. 2. Antegrade flow involving both vertebral arteries. Sumanth Merino Jr., MD PE at Discharge GENERAL: Well nourished in NAD SKIN: Warm and dry. HEAD: Atraumatic. Normocephalic. EYES: Pupils equal and round. No scleral icterus. No injection or drainage. ENT: No nasal bleeding or discharge. Mucous membranes pink and moist. NECK: Trachea midline. No JVD. CARDIOVASCULAR: Regular rate and rhythm. RESPIRATORY: No accessory muscle use. Clear to auscultation. Breath sounds equal bilaterally. GASTROINTESTINAL: Abdomen soft, non-tender, nondistended. Hepatic and splenic margins not palpable. MUSCULOSKELETAL: Extremities without clubbing, cyanosis, or edema. No obvious deformities. NEUROLOGICAL: Awake and alert. No obvious cranial nerve deficits. Motor grossly within normal limits. Five out of 5 muscle strength in the arms and legs. Normal speech. PSYCHIATRIC: Appropriate mood and affect; insight and judgment normal. Hospital Course This is a pleasant 66 y/o Male with Schizophrenia, Bradycardia status post Pacemaker placement, Pituitary adenoma status post tumor resection, GERD, he was found unconscious in the bathtub, with Diagnosis of Syncopal episode, Seen in his bedroom patient still under anesthesia effect is somnolent, but able to wake up. not yet result of the Cardiac Cath in EMR, no new issues. following specialist recommendations, no nausea, vomit or diarrhea. 09/29: Seen in his bedroom discussed with Nurse Raciel Los no new issues, as per creative services specialist to reassure the patient asked for Clearance by specialists not yet in EMR, No nausea, vomit or diarrhea, no chest pain. Assessment and Plan 1. Syncope suspected seizure activity, found slumped over in bathtub, Urinary incontinence when found, EEG abnormal, as per Neurology started on Keppra abnormal Stress test status post Cardiac Catheterization not yet result in EMR his Carotid US WNL, Pacemaker interrogated, status post Cardiac cath Patent Coronary arteries, Preserved Left ventricular systolic function, to reassure the patient about his cardiac status. and okay to discharge home now. 2. Headache Improved now. history of Pituitary mass that could not be completely removed Keppra 1000 BID started by Neurology, Seizure precautions, do not drive for six months. 3. Unstable Angina Nuclear Stress test showed ischemia, Cardiac cath clean. 4. Orthostatic BP chronic, continue Home Fludrocortisone, Silvino Hose, PT daily for outpatient PT 5. Schizophrenia to continue Home medicines. Discussed with patient and his nurse Raciel Madison, all questions answered to the best of my abilities. DVT prophylaxis: scds/teds Discharge home now. Pt Condition on Discharge: Good Discharge Disposition: Discharge Home Discharge Time: <= 30 minutes Discharge Instructions DIET: Follow Instructions for: Heart Healthy Diet Activities you can perform: Regular-No Restrictions Angel Dinh MD Sep 29, 2016 18:06
== END 2016-09-29 18:40 | disposition home or self-care (01) | DRG 101 ==
LOC: NEPE 01:16 → INTOOBSV 04:07 → NEDA 04:07 → NEPHCDU 06:30 → OBSVTOIN 09-27 13:59 → HCIS 09-27 16:51
PROVIDERS: ADMIT Internal Medicine; ATTEND Internal Medicine
PROC: 4A023N7 Measurement of Cardiac Sampling and Pressure, Left Heart, Percutaneous Approach (ICD-10-PCS; principal; 2016-09-28)
PROC: B211YZZ Fluoroscopy of Multiple Coronary Arteries using Other Contrast (ICD-10-PCS; 2016-09-28)
PROC: B215YZZ Fluoroscopy of Left Heart using Other Contrast (ICD-10-PCS; 2016-09-28)
DX: R56.9 Unspecified convulsions (principal); E87.0 Hyperosmolality and hypernatremia; I48.91 Unspecified atrial fibrillation; I20.0 Unstable angina; F20.0 Paranoid schizophrenia; I10 Essential (primary) hypertension; E03.9 Hypothyroidism, unspecified; Z95.0 Presence of cardiac pacemaker; E11.9 Type 2 diabetes mellitus without complications; Z79.84 Long term (current) use of oral hypoglycemic drugs; I45.10 Unspecified right bundle-branch block; K21.9 Gastro-esophageal reflux disease without esophagitis; E87.6 Hypokalemia; D35.2 Benign neoplasm of pituitary gland; R51 Headache; R94.39 Abnormal result of other cardiovascular function study; I95.1 Orthostatic hypotension
CPT/HCPCS: 70450; 70470; 71010; 76937; 80048; 80053; 80307; 81001; 82550; 82948; 83036; 83690; 83735; 83880; 84100; 84439; 84443; 84484; 85025; 85610; 85730; 93005; 93225; 93226; 93306; 93458; 93880; 95819; C1769; C1893; G8987-GP; G8988-GP; J1644; J1720; J2250; J3010; J7030; Q9967

== ENCOUNTER 2016-12-01 16:04 | Emergency (ER) | payer MEDICAID ==
[~2016-12-01] VITALS: Ht 177.8 cm; Wt 82.0 kg
[~2016-12-01 16:04] MED LIST changes: +ASPI325T PO; +DILT-60 PO; -DILT180C56 PO; +LEVE500 PO
[2016-12-01 16:12] VITALS: BP 101/68; PULSE 70; RESP 24; TEMP 97.2; O2SAT 100
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
[2016-12-01] MEDS ORDERED: TYLETAB34 PO (19:06)
== END 2016-12-01 19:28 | disposition home or self-care (01) ==
LOC: NEPD 16:04
DX: S83.91XA Sprain of unspecified site of right knee, initial encounter (principal); M13.88 Other specified arthritis, other site; R73.03 Prediabetes; I10 Essential (primary) hypertension; F20.9 Schizophrenia, unspecified; W19.XXXA Unspecified fall, initial encounter; Z86.73 Personal history of transient ischemic attack (TIA), and cerebral infarction without residual deficits; Z79.82 Long term (current) use of aspirin
CPT/HCPCS: 73564; 99283

== ENCOUNTER 2017-05-20 06:01 | Observation (INO) | payer MEDICAID ==
[2017-05-20] VITALS (10 sets, daily range): BP systolic 103–109; BP diastolic 55–67; PULSE 59–81; RESP 12–20; TEMP 96–98.9; O2SAT 92–100
[~2017-05-20] VITALS: Ht 177.8 cm; Wt 85.0 kg
[~2017-05-20 06:01] MED LIST changes: +ASPI-183 PO; -ASPI325T PO; -DILT-60 PO; +TYLETAB34 PO
[2017-05-20] MEDS ORDERED: SODIUM CHLORIDE 0.9% FLUSH 10 ML FLUSH IVF PRN (06:15)
[2017-05-20] MEDS ORDERED: methylPREDNISolone SOD SUCC 125 MG/2 ML VIAL IV PUSH ONE (06:15)
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
[2017-05-20 06:51] LABS: AUTOMATED NEUTROPHIL # 1.5 TH/MM3 (1.8-7.7); BASOPHIL % 0.4 % (0.0-2.0); EOSINOPHIL % 0.8 % (0.0-4.0); HEMATOCRIT 34.7 % (39.0-51.0); HEMOGLOBIN 11.7 GM/DL (13.0-17.0); LYMPH % 65.2 % (9.0-44.0); LYMPHOCYTE # 3.4 TH/MM3 (1.0-4.8); MEAN CELL VOLUME 82.9 FL (80.0-100.0); MEAN CORPUSCULAR HGB CONC 33.8 % (32.0-36.0); MEAN PLATELET VOLUME 9.2 FL (7.0-11.0); MONO % 4.2 % (0.0-8.0); MONOCYTE # 0.2 TH/MM3 (0-0.9); NEUT % 29.4 % (16.0-70.0); PLATELET COUNT 168 TH/MM3 (150-450); RED BLOOD COUNT 4.19 MIL/MM3 (4.50-5.90); RED CELL DISTRIBUTION WIDTH 16.7 % (11.6-17.2); WHITE BLOOD COUNT 5.3 TH/MM3 (4.0-11.0)
[2017-05-20 07:04] LABS: INTERNATIONAL NORMALIZED RATIO 1.1 RATIO
[2017-05-20 07:05] LABS: PROTHROMBIN TIME - PATIENT 10.8 SEC (9.8-11.6)
--- NOTE | 2017-05-20 07:06 | RADRPT ---
EXAM DATE/TIME: 05/20/2017 06:36 [place] COMPARISON: CHEST PA & LAT, February 18, 2017, 15:50. INDICATIONS : Short of breath. MEDICAL HISTORY : None. SURGICAL HISTORY : Pacemaker. ENCOUNTER: Initial ACUITY: 1 day PAIN SCORE: 6/10 LOCATION: Bilateral chest FINDINGS: There is infiltrate of the left lung base, probably mainly in the lower lobe. A small left pleural ef fusion is possible as well. Right lung is clear. There is no pneumothorax. Heart size upper limits of normal. Cardiac pacer again noted. CONCLUSION: Left base pneumonia. Gurpreet Yousif MD on May 20, 2017 at 7:02 Board Certified Radiologist. This report was verified electronically.
[2017-05-20 07:09] LABS: ALT (GPT) 18 U/L (12-78)
[2017-05-20 07:22] LABS: ALKALINE PHOSPHATASE 54 U/L (45-117); BICARBONATE 23.8 MEQ/L (21.0-32.0); BLOOD UREA NITROGEN 8 MG/DL (7-18); CALCIUM 9.2 MG/DL (8.5-10.1); CHLORIDE 105 MEQ/L (98-107); CREATININE 1.18 MG/DL (0.60-1.30); GLOMERULAR FILTRATION RATE 75 ML/MIN (>89); GLUCOSE,RANDOM 148 MG/DL (74-106); MAGNESIUM 2.4 MG/DL (1.5-2.5); SODIUM (NA) 136 MEQ/L (136-145); TOTAL BILIRUBIN ADULT 0.2 MG/DL (0.2-1.0); TOTAL PROTEIN 8.1 GM/DL (6.4-8.2); TROPONIN I LESS THAN 0.02 NG/ML (0.02-0.05)
[2017-05-20 07:23] LABS: AST (GOT) 46 U/L (15-37)
[2017-05-20 08:00] LABS: OVALOCYTES 1+ (NORMAL)
[2017-05-20 08:01] LABS: ACANTHOCYTES OCC (NORMAL)
[2017-05-20] MEDS ORDERED: AZITHROMYCIN INJ 500 MG in SODIUM CHLOR 0.9% 250 ML INJ 250 ML IV ONE (08:15)
[2017-05-20] MEDS ORDERED: cefTRIAXone INJ 1,000 MG in SODIUM CHLORIDE 0.9% INJ 100 ML IV ONE (08:15)
--- NOTE | 2017-05-20 08:17 | PD ---
Data Data Last Documented VS Vital Signs Date Time Temp Pulse Resp B/P (MAP) Pulse Ox O2 Delivery O2 Flow Rate FiO2 05/20/17 07:10 62 12 109/57 (74) 100 Nasal Cannula 2.00 05/20/17 06:03 98.2 Orders Orders Electrocardiogram (05/20/17 06:10) Ckmb (Isoenzyme) Profile (05/20/17 06:10) Complete Blood Count With Diff (05/20/17 06:10) Comprehensive Metabolic Panel (05/20/17 06:10) Magnesium (Mg) (05/20/17 06:10) Prothrombin Time / Inr (Pt) (05/20/17 06:10) Act Partial Throm Time (Ptt) (05/20/17 06:10) Troponin I (05/20/17 06:10) Chest, Single Ap (05/20/17 06:10) Ecg Monitoring (05/20/17 06:10) Bilateral Bp Monitoring (05/20/17 06:10) Iv Access Insert/Monitor (05/20/17 06:10) Oximetry (05/20/17 06:10) Oxygen Administration (05/20/17 06:10) Sodium Chloride 0.9% Flush (Ns Flush) (05/20/17 06:15) Drug Screen, Random Urine (05/20/17 06:10) Methylprednisolone So Succ Inj (Solumedr (05/20/17 06:15) CKMB (05/20/17 06:25) CKMB% (05/20/17 06:25) Ceftriaxone Inj (Rocephin Inj) (05/20/17 08:15) Azithromycin Inj (Zithromax Inj) (05/20/17 08:15) (Hub Use Only)Inp Phy Cons/Ref (05/20/17 ) Admit Order (Ed Use Only) (05/20/17 ) Labs Laboratory Tests Test 05/20/17 06:25 White Blood Count 5.3 TH/MM3 Red Blood Count 4.19 MIL/MM3 Hemoglobin 11.7 GM/DL Hematocrit 34.7 % Mean Corpuscular Volume 82.9 FL Mean Corpuscular Hemoglobin 28.0 PG Mean Corpuscular Hemoglobin Concent 33.8 % Red Cell Distribution Width 16.7 % Platelet Count 168 TH/MM3 Mean Platelet Volume 9.2 FL Neutrophils (%) (Auto) 29.4 % Lymphocytes (%) (Auto) 65.2 % Monocytes (%) (Auto) 4.2 % Eosinophils (%) (Auto) 0.8 % Basophils (%) (Auto) 0.4 % Neutrophils # (Auto) 1.5 TH/MM3 Lymphocytes # (Auto) 3.4 TH/MM3 Monocytes # (Auto) 0.2 TH/MM3 Eosinophils # (Auto) 0.0 TH/MM3 Basophils # (Auto) 0.0 TH/MM3 CBC Comment AUTO DIFF Differential Comment AUTO DIFF CONFIRMED Ovalocytes 1+ Acanthocytes OCC Prothrombin Time 10.8 SEC Prothromb Time International Ratio 1.1 RATIO Activated Partial Thromboplast Time 29.1 SEC Blood Urea Nitrogen 8 MG/DL Creatinine 1.18 MG/DL Random Glucose 148 MG/DL Total Protein 8.1 GM/DL Albumin 4.0 GM/DL Calcium Level 9.2 MG/DL Magnesium Level 2.4 MG/DL Alkaline Phosphatase 54 U/L Aspartate Amino Transf (AST/SGOT) 46 U/L Alanine Aminotransferase (ALT/SGPT) 18 U/L Total Bilirubin 0.2 MG/DL Sodium Level 136 MEQ/L Potassium Level 4.0 MEQ/L Chloride Level 105 MEQ/L Carbon Dioxide Level 23.8 MEQ/L Anion Gap 7 MEQ/L Estimat Glomerular Filtration Rate 75 ML/MIN Total Creatine Kinase 270 U/L Creatine Kinase MB 0.7 NG/ML Troponin I LESS THAN 0.02 NG/ML MDM Supervised Visit with WALTER: No Narrative Course Patient CARE assumed by me from Dr. Lopez at 07 100, this 66-year-old male who presented with chest pain, chest x-ray read as pneumonia consolidating in the left lower lung, he has not had any symptoms to suggest infectious etiology nonetheless we will start him on Rocephin azithromycin, he does need to be excluded for cardiac causes of his pain, given the chest x-ray read this with disqualify him from chest pain center discussed with Dr. Lucas for observation status to the resident service Diagnosis Primary Impression: Chest pain Admitting Information Admitting Physician Requests: Observation Condition: Stable Adi Ramsya MD May 20, 2017 08:17
[2017-05-20] MEDS ORDERED: SODIUM CHLORIDE 0.9% FLUSH 10 ML FLUSH IV FLUSH PRN ×2 (08:45→10:15)
[2017-05-20] MEDS: SODIUM CHLORIDE 0.9% FLUSH 10 ML FLUSH IV FLUSH SCH ×4 (09:18→20:58)
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
[2017-05-20] MEDS ORDERED: LACTULOSE SYRUP 20 GM/30 ML CUP PO PRN (10:15)
[2017-05-20] MEDS ORDERED: ONDANSETRON HCL 4 MG/2 ML VIAL IVP PRN (10:15)
[2017-05-20] MEDS: DOCUSATE SODIUM 50 MG/SENNA 8.6 MG TAB PO SCH ×2 (10:15→20:58)
[2017-05-20] MEDS ORDERED: MAGNESIUM HYDROXIDE SUSP 30 ML CUP PO PRN (10:15)
[2017-05-20] MEDS ORDERED: ACETAMINOPHEN 325 MG TAB PO PRN (10:15)
[2017-05-20] MEDS ORDERED: SENNOSIDES 8.6 MG TAB PO PRN (10:15)
[2017-05-20] MEDS ORDERED: BISACODYL 10 MG SUPP RECTAL PRN (10:15)
[2017-05-20] MEDS ORDERED: NALOXONE HCL 0.4 MG/ML AMP IV PUSH PRN (10:15)
[2017-05-20] MEDS ORDERED: cloNIDine HCL 0.1 MG TAB PO PRN (10:30)
[2017-05-20] MEDS ORDERED: DEXTROSE 50% IN WATER 50 ML VIAL(D50) IV PUSH PRN (10:30)
[2017-05-20] MEDS ORDERED: GLUCAGON 1 MG/ML VIAL IM PRN (10:30)
[2017-05-20] MEDS ORDERED: RESP: ALBUTEROL 2.5 MG/3 ML NEB (PRN) NEB (11:00)
[2017-05-20] MEDS: RESP: ALBUTEROL 2.5 MG/IPRATROPIUM 0.5 MG NEB (SCH) NEB ×3 (11:12→21:24)
[2017-05-20 11:17] LABS: BILIRUBIN, URINE NEG (NEG); BLOOD, URINE NEG (NEG); GLUCOSE,URINE NEG (NEG); HYALINE CAST, URINE 3 /lpf (RARE); KETONE, URINE NEG (NEG); NITRITE,URINE NEG (NEG); URINE COLOR LIGHT-YELLOW (YELLW/STRAW); URINE LEUKOCYTE ESTERASE NEG (NEG)
[2017-05-20] MEDS ORDERED: ENOXAPARIN SODIUM 40 MG/0.4 ML SYRINGE SQ SCH (12:00)
[2017-05-20] MEDS: INSULIN ASPART SUPPLEMENTAL SCALE SQ SCH ×3 (12:00→20:57)
[2017-05-20 13:50] LABS: GLUCOSE,RANDOM 147 MG/DL (74-106)
[2017-05-20 13:59] LABS: TROPONIN I LESS THAN 0.02 NG/ML (0.02-0.05)
[2017-05-20] MEDS: HEPARIN SODIUM - SQ 10,000 UNITS/ML VIAL SQ SCH ×2 (15:38→20:57)
--- NOTE | 2017-05-20 17:55 | EKG ---
Date Performed: 05/20/2017 Time Performed: 06:12:04 PTAGE: 66 years EKG: Atrial pacing MODERATE INTRAVENTRICULAR CONDUCTION DELAY NONSPECIFIC T-WAVE ABNORMALITY ABN ORMAL ECG PREVIOUS TRACING : 02/18/2017 15.36 DOCTOR: Holden Rogel Interpretating Date/Time 05/20/2017 17:53:46
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
[2017-05-20] MEDS: risperiDONE 1 MG TAB PO SCH (20:57)
[2017-05-20] MEDS: levETIRAcetam 500 MG TAB PO SCH (20:58)
[2017-05-21] VITALS (7 sets, daily range): BP systolic 87–91; BP diastolic 53–54; PULSE 60–97; RESP 19–20; TEMP 95.6–98.3; O2SAT 94–98
[2017-05-21] MEDS: RESP: ALBUTEROL 2.5 MG/IPRATROPIUM 0.5 MG NEB (SCH) NEB ×4 (03:17→21:44)
[2017-05-21] MEDS: LEVOTHYROXINE SODIUM 112 MCG TAB PO SCH (05:36)
[2017-05-21] MEDS: HEPARIN SODIUM - SQ 10,000 UNITS/ML VIAL SQ SCH ×3 (05:36→20:09)
[2017-05-21 06:43] LABS: AUTOMATED NEUTROPHIL # 5.2 TH/MM3 (1.8-7.7); BASOPHIL % 0.1 % (0.0-2.0); HEMATOCRIT 31.2 % (39.0-51.0); HEMOGLOBIN 10.5 GM/DL (13.0-17.0); LYMPH % 15.6 % (9.0-44.0); MEAN CELL VOLUME 84.3 FL (80.0-100.0); MEAN CORPUSCULAR HEMOGLOBIN 28.3 PG (27.0-34.0); MEAN CORPUSCULAR HGB CONC 33.6 % (32.0-36.0); MEAN PLATELET VOLUME 9.9 FL (7.0-11.0); MONO % 4.2 % (0.0-8.0); MONOCYTE # 0.3 TH/MM3 (0-0.9); NEUT % 80.1 % (16.0-70.0); PLATELET COUNT 151 TH/MM3 (150-450); RED CELL DISTRIBUTION WIDTH 16.8 % (11.6-17.2); WHITE BLOOD COUNT 6.5 TH/MM3 (4.0-11.0)
[2017-05-21 07:06] LABS: BICARBONATE 25.9 MEQ/L (21.0-32.0); CALCIUM 9.6 MG/DL (8.5-10.1); CREATININE 1.21 MG/DL (0.60-1.30)
[2017-05-21] MEDS: INSULIN ASPART SUPPLEMENTAL SCALE SQ SCH ×4 (08:00→21:00)
[2017-05-21] MEDS: SODIUM CHLORIDE 0.9% FLUSH 10 ML FLUSH IV FLUSH SCH ×4 (08:37→20:10)
[2017-05-21] MEDS: DOCUSATE SODIUM 50 MG/SENNA 8.6 MG TAB PO SCH ×2 (08:43→20:09)
[2017-05-21] MEDS: AZITHROMYCIN INJ 500 MG in SODIUM CHLOR 0.9% 250 ML INJ 250 ML IV SCH (08:43)
[2017-05-21] MEDS: levETIRAcetam 500 MG TAB PO SCH ×2 (08:43→20:09)
[2017-05-21] MEDS: cefTRIAXone INJ 1,000 MG in SODIUM CHLORIDE 0.9% INJ 100 ML IV SCH (09:54)
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
[2017-05-21] MEDS ORDERED: WALKER WHEELS/F1 MIS (16:02)
[2017-05-21] MEDS ORDERED: LEVO750T3 PO (16:04)
--- NOTE | 2017-05-21 16:06 | HHI.DCPOC ---
Discharge Care Plan Diagnosis: (1) Schizophrenia (2) Delusion (3) Gait difficulty (4) Chest pain (5) Pacemaker (6) Pneumonia Goals to Promote Your Health * To prevent worsening of your condition and complications * To maintain your health at the optimal level Directions to Meet Your Goals Take your medications as prescribed Follow your dietary instruction Follow activity as directed Keep your appointments as scheduled Take your immunizations and boosters as scheduled If your symptoms worsen call your PCP, if no PCP go to Urgent Care Center or Emergency Room Smoking is Dangerous to Your Health. Avoid second hand smoke Call the 24-hour hour crisis hotline for domestic abuse at Kiesha Sahy MD R1 May 21, 2017 16:06
[2017-05-21] MEDS: ASPIRIN 81 MG CHEW TAB CHEW SCH (18:32)
[2017-05-21] MEDS: risperiDONE 1 MG TAB PO SCH (20:09)
[2017-05-22 00:13] VITALS: BP 97/52; PULSE 60; RESP 20; TEMP 97.6; O2SAT 96
--- NOTE | 2017-05-22 00:49 | EKG ---
Date Performed: 05/20/2017 Time Performed: 19:09:44 PTAGE: 66 years EKG: ELECTRONIC ATRIAL PACEMAKER MODERATE INTRAVENTRICULAR CONDUCTION DELAY NONSPECIFIC T-WAVE A BNORMALITY ABNORMAL RHYTHM ECG PREVIOUS TRACING : 05/20/2017 12.37 Since the prior tracing, there has been no significant marvin DOCTOR: Jiame Wallace Interpretating Date/Time 05/22/2017 00:48:29
--- NOTE | 2017-05-22 01:18 | EKG ---
Date Performed: 05/20/2017 Time Performed: 12:37:28 PTAGE: 66 years EKG: ELECTRONIC ATRIAL PACEMAKER MODERATE INTRAVENTRICULAR CONDUCTION DELAY NONSPECIFIC T-WAVE A BNORMALITY ABNORMAL RHYTHM ECG Since the prior tracing, there has been no significant change DOCTOR: Jaime Wallace Interpretating Date/Time 05/22/2017 01:16:17
[2017-05-22 04:01] VITALS: BP 118/66; PULSE 62; RESP 19; TEMP 97.8; O2SAT 98
[2017-05-22] MEDS: HEPARIN SODIUM - SQ 10,000 UNITS/ML VIAL SQ SCH ×2 (04:39→12:00)
[2017-05-22] MEDS: LEVOTHYROXINE SODIUM 112 MCG TAB PO SCH (04:39)
[2017-05-22] MEDS: RESP: ALBUTEROL 2.5 MG/IPRATROPIUM 0.5 MG NEB (SCH) NEB ×2 (07:16→14:00)
[2017-05-22 08:00] VITALS: PULSE 60
[2017-05-22] MEDS: INSULIN ASPART SUPPLEMENTAL SCALE SQ SCH ×2 (08:00→12:00)
[2017-05-22 08:20] VITALS: BP 125/66; PULSE 73; RESP 18; TEMP 98; O2SAT 98
[2017-05-22] MEDS: AZITHROMYCIN INJ 500 MG in SODIUM CHLOR 0.9% 250 ML INJ 250 ML IV SCH (08:31)
[2017-05-22] MEDS: ASPIRIN 81 MG CHEW TAB CHEW SCH (08:31)
[2017-05-22] MEDS: levETIRAcetam 500 MG TAB PO SCH (08:31)
[2017-05-22] MEDS: DOCUSATE SODIUM 50 MG/SENNA 8.6 MG TAB PO SCH (08:31)
[2017-05-22] MEDS: SODIUM CHLORIDE 0.9% FLUSH 10 ML FLUSH IV FLUSH SCH (08:32)
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
[2017-05-22] MEDS ORDERED: WALKER WHEELS/F1 MIS ×2 (09:54→10:49)
[2017-05-22] MEDS: cefTRIAXone INJ 1,000 MG in SODIUM CHLORIDE 0.9% INJ 100 ML IV SCH (10:00)
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
== END 2017-05-22 15:17 | disposition home or self-care (01) ==
LOC: NEPE 06:01 → NEDA 08:38 → NEPGCP 13:44
PROVIDERS: ADMIT Family Medicine; ATTEND Family Medicine
DX: F20.0 Paranoid schizophrenia (principal); J18.1 Lobar pneumonia, unspecified organism; R07.89 Other chest pain; E11.9 Type 2 diabetes mellitus without complications; I10 Essential (primary) hypertension; I24.9 Acute ischemic heart disease, unspecified; G40.909 Epilepsy, unspecified, not intractable, without status epilepticus; E78.5 Hyperlipidemia, unspecified; I95.1 Orthostatic hypotension; E03.9 Hypothyroidism, unspecified; F14.90 Cocaine use, unspecified, uncomplicated; J45.909 Unspecified asthma, uncomplicated; Z79.899 Other long term (current) drug therapy; Z95.0 Presence of cardiac pacemaker; Z86.73 Personal history of transient ischemic attack (TIA), and cerebral infarction without residual deficits; Z81.8 Family history of other mental and behavioral disorders; Z82.49 Family history of ischemic heart disease and other diseases of the circulatory system
CPT/HCPCS: 71045; 80048; 80053; 80177; 80307; 81001; 82550; 82552; 82947; 82948; 83735; 84443; 84484; 85025; 85610; 85730; 93005; 94150; 94640; 94664; 94667; 94668; 96365; 96366; 96372; 96375; 97116; 97162; 99285; G0378; G8987; G8988; J0456; J0696; J1644; J1815; J2930; J7050

== ENCOUNTER 2017-08-28 04:07 | Emergency (ER) | payer MEDICARE, MEDICAID ==
[~2017-08-28] VITALS: Ht 177.8 cm; Wt 80.0 kg
[~2017-08-28 04:07] MED LIST changes: +LEVO750T3 PO; -TYLETAB34 PO; +WALKER WHEELS/F1 MIS
[2017-08-28 04:23] VITALS: BP 83/49; PULSE 65; RESP 18; TEMP 97.4; O2SAT 97
[2017-08-28 04:35] VITALS: BP 106/63; PULSE 61; O2SAT 100
[2017-08-28] MEDS ORDERED: SODIUM CHLORID 0.9% 500 ML INJ 500 ML IV ONE (05:45)
--- NOTE | 2017-08-28 05:45 | PD ---
HPI Chief Complaint: Abdominal Pain Time Seen by Provider: 04:49 Travel History International Travel<30 days: No Contact w/Intl Traveler<30days: No Traveled to known affect area: No History of Present Illness HPI The patient is a 67 year old male who presents to the [facility] emergency department with a history of accidentally taking an extra dose of Risperdal earlier in the evening prior to going to bed. The patient was up going to the bathroom when he seem to be drowsier than usual, and told his sister that he took the extra dose. He reports that he took the extra pill by mistake when he forgot that he took the original pill at 8 PM. He took the second pill at approximately 8:40 PM. The patient reports having midepigastric abdominal pain associated with this. He reports that yesterday he also had diarrhea 3. He denies having any blood in his stool or black or tarry stools. On review of systems otherwise, he denies having any known recent fevers, cough or congestion , neck pain, chest pain, shortness of breath, urinary symptoms, one-sided weakness, slurred speech, facial droop, or difficulty with word finding ability. He denies having any vision changes. He denies any suicidal or homicidal ideations. [facility] Past Medical History Narrative Medical The patient's past medical history is significant for symptomatic bradycardia status post AICD placement, history of schizophrenia, history of orthostatic hypotension, history of pituitary adenoma status post resection, acid reflux per Arthritis: Yes Asthma: No Autoimmune Disease: No Blood Disorders: No Anxiety: No Depression: No Heart Rhythm Problems: Yes Cancer: No Cardiac Catheterization: No Cardiovascular Problems: Yes High Cholesterol: No Chemotherapy: No Chest Pain: Yes Congestive Heart Failure: No COPD: No Cerebrovascular Accident: Yes Diabetes: Yes Patient Takes Glucophage: No Diminished Hearing: Yes Endocrine: Yes Gastrointestinal Disorders: Yes (reports having an ulcer) GERD: No Glaucoma: No Genitourinary: No Headaches: Yes Hepatitis: No Hiatal Hernia: No Hypertension: Yes Immune Disorder: No Implanted Vascular Access Dvce: Yes Kidney Stones: No Musculoskeletal: No Neurologic: No Psychiatric: No Reproductive: No Respiratory: No Immunizations Current: Yes Migraines: No Myocardial Infarction: No Radiation Therapy: No Renal Failure: No Schizophrenia: Yes Seizures: No Sickle Cell Disease: No Sleep Apnea: No Thyroid Disease: No Ulcer: Yes Tetanus Vaccination: Unknown Influenza Vaccination: No PNEUMOCCOCAL Vaccine (Year): 3 Past Surgical History Narrative Surgical The patient's past surgical history is significant for a pacemaker placement, pituitary adenoma resection, tonsillectomy, appendectomy, lumbar spine surgery. Abdominal Surgery: No AICD: No Appendectomy: Yes Arteriovenous Shunt: No Body Medical Devices: Pacemaker Cardiac Surgery: Yes (PACEMAKER) Coronary Artery Bypass Graft: No Ear Surgery: No Endocrine Surgery: No Eye Surgery: No Genitourinary Surgery: No Gynecologic Surgery: No Insulin Pump: No Neurologic Surgery: Yes (TUMOR BRAIN) Oral Surgery: No Pacemaker: Yes Thoracic Surgery: No Tonsillectomy: Yes Other Surgery: Yes Family History Family Myocardial Infarction: Yes Social History Alcohol Use: No Tobacco Use: No Substance Use: Yes (Crack/cocaine) Allergies-Medications (Allergen,Severity, Reaction): Coded Allergies: MRI PRECAUTION (Verified Adverse Reaction, Severe, NON MRI CONDITIONAL PACEMAKER 08/24/15 KMD, 08/28/17) [employer] JIMMIE KELLEY PACEMAKER IMPLANTED 12/15/2008 Reported Meds & Prescriptions Reported Meds & Active Scripts Active Walker with Front Wheels (Device) 1 Mis Mis Ea .XX DIRECTED Levofloxacin 750 Mg Tablet 750 Mg PO DAILY 7 Days Keppra (Levetiracetam) 500 Mg Tab 1,000 Mg PO Q12HR Aspirin 325 Mg Tab 325 Mg PO DAILY Fludrocortisone (Fludrocortisone Acetate) 0.1 Mg Tab 0.2 Mg PO DAILY Reported Levothyroxine (Levothyroxine Sodium) 137 Mcg Tab 137 Mcg PO DAILY Fluticasone Nasal [place] 50 Mcg/Act Naspr 50 Mcg EACH NARE BID 50 mcg/spray Risperdal (Risperidone) 4 Mg Tab 2 Mg PO HS Review of Systems Except as stated in HPI: all other systems reviewed are Neg General / Constitutional: No: Fever Eyes: No: Visual changes HENT: No: Headaches Cardiovascular: No: Chest Pain or Discomfort Respiratory: No: Shortness of Breath Gastrointestinal: Positive: Diarrhea, Abdominal Pain, Changes in Bowel Habits, No: Nausea, Vomiting, Indigestion, Loss of Appetite Genitourinary: No: Dysuria Musculoskeletal: No: Pain Skin: No Rash Neurologic: Positive: Weakness (Generalized weak), No: Focal Abnormalities, Change in Mentation, Slurred Speech, Sensory Disturbance Psychiatric: No: Depression Endocrine: No: Polydipsia Hematologic/Lymphatic: No: Easy Bruising Physical Exam Narrative General: The patient is a well-developed well-nourished male in no acute distress Head and Neck exam: Head is normocephalic atraumatic. Eyes: EOMI, pupils are equal round and reactive to light. Nose: Midline septum with pink mucous membranes Mouth: Dentition unremarkable. Moist mucus membranes. Posterior oropharynx is not erythematous. No tonsillar hypertrophy. Uvula midline. Airway patent. Neck: No palpable lymphadenopathy. No nuchal rigidity. No thyromegaly. Cardiovascular: Regular rate and rhythm without murmurs, gallops, or rubs. No pulse deficit to the extremities on simultaneous auscultation and palpation of his radial artery. Lungs: Clear to auscultation bilaterally. No wheezes, rhonchi, or rales. Abdomen: Soft, without tenderness to palpation in all 4 quadrants of the abdomen. No guarding, rebound, or rigidity. Normal bowel sounds are audible. No tenderness on palpation of McBurney's point. Negative Flores sign. Extremities: No clubbing, cyanosis, or edema. 2+ pulses in all 4 extremities. No calf tenderness on palpation. Back: No costovertebral angle tenderness to palpation. Neurologic Exam: Grossly nonfocal. Skin Exam: No rash noted. Intact skin that is warm and dry. Data Data Last Documented VS Vital Signs Date Time Temp Pulse Resp B/P (MAP) Pulse Ox O2 Delivery O2 Flow Rate FiO2 08/28/17 04:35 61 106/63 (77) 100 Room Air 08/28/17 04:23 97.4 18 Orders Orders Complete Blood Count With Diff (08/28/17 05:29) Comprehensive Metabolic Panel (08/28/17 05:29) C-Reactive Protein (Crp) (08/28/17 05:29) Lipase (08/28/17 05:29) Urinalysis - C+S If Indicated (08/28/17 05:29) Iv Access Insert/Monitor (08/28/17 05:29) Ecg Monitoring (08/28/17 05:29) Oximetry (08/28/17 05:29) Sodium Chlorid 0.9% 500 Ml Inj (Ns 500 M (08/28/17 05:45) Labs Laboratory Tests Test 08/28/17 06:11 08/28/17 06:34 White Blood Count 5.3 TH/MM3 Red Blood Count 4.27 MIL/MM3 Hemoglobin 11.9 GM/DL Hematocrit 35.7 % Mean Corpuscular Volume 83.5 FL Mean Corpuscular Hemoglobin 27.9 PG Mean Corpuscular Hemoglobin Concent 33.4 % Red Cell Distribution Width 16.2 % Platelet Count 139 TH/MM3 Mean Platelet Volume 8.8 FL Neutrophils (%) (Auto) 57.6 % Lymphocytes (%) (Auto) 36.7 % Monocytes (%) (Auto) 4.6 % Eosinophils (%) (Auto) 0.7 % Basophils (%) (Auto) 0.4 % Neutrophils # (Auto) 3.1 TH/MM3 Lymphocytes # (Auto) 1.9 TH/MM3 Monocytes # (Auto) 0.2 TH/MM3 Eosinophils # (Auto) 0.0 TH/MM3 Basophils # (Auto) 0.0 TH/MM3 CBC Comment DIFF FINAL Differential Comment Blood Urea Nitrogen 7 MG/DL Creatinine 1.00 MG/DL Random Glucose 138 MG/DL Total Protein 8.6 GM/DL Albumin 4.4 GM/DL Calcium Level 9.4 MG/DL Alkaline Phosphatase 56 U/L Aspartate Amino Transf (AST/SGOT) 25 U/L Alanine Aminotransferase (ALT/SGPT) 19 U/L Total Bilirubin 0.2 MG/DL Sodium Level 142 MEQ/L Potassium Level 4.1 MEQ/L Chloride Level 106 MEQ/L Carbon Dioxide Level 27.7 MEQ/L Anion Gap 8 MEQ/L Estimat Glomerular Filtration Rate 91 ML/MIN C-Reactive Protein 0.39 MG/DL Lipase 102 U/L Urine Color LIGHT-YELLOW Urine Turbidity CLEAR Urine pH 5.0 Urine Specific [place] 1.003 Urine Protein NEG mg/dL Urine Glucose (UA) NEG mg/dL Urine Ketones NEG mg/dL Urine Occult Blood NEG Urine Nitrite NEG Urine Bilirubin NEG Urine Urobilinogen LESS THAN 2.0 MG/DL Urine Leukocyte Esterase NEG Urine RBC LESS THAN 1 /hpf Urine WBC 1 /hpf Urine Hyaline Casts 2 /lpf Urine Mucus FEW /lpf Microscopic Urinalysis Comment CULT NOT INDICATED MDM Medical Decision Making Medical Screen Exam Complete: Yes Emergency Medical Condition: Yes Medical Record Reviewed: Yes Differential Diagnosis Accidental medication overdose, versus intentional overdose, versus gastritis, versus gastroenteritis, versus pancreatitis Narrative Course During the course of the patient's emergency department visit, the patient's history, examination, and differential diagnosis were reviewed with the patient. The patient was placed on a campus monitor with oximetry and frequent blood pressure monitoring. The patient had IV access obtained and blood work sent for analysis. The patient was initially provided normal saline at 500 mL bolus 1. The patient's laboratory studies were reviewed and remarkable for a white count of 5.3, hemoglobin 11.9, platelets 139 with a normal differential, CMP is remarkable for a glucose of 138, C-reactive protein 0.39, total protein 8.6, lipase 102. Urinalysis is unremarkable. The patient was observed in the emergency department and although drowsy remained easily awakened. The patient was instructed that some patients are actually on 8 mg of Risperdal, therefore it is not considered dangerous that he took an extra dose, however it would not be recommended in the future. He was instructed regarding the importance of using a daily pillbox to avoid the mistake in the future. The patient is resting comfortably and feels better, is alert and in no distress. The patient's results and examination findings were discussed with the patient. The repeat examination is unremarkable and benign. The history, exam, diagnostic testing, and current condition do not suggest any significant pathology to warrant further testing, continued ED treatment, admission, or surgical evaluation at this point. The vital signs have been stable. The patient does not have uncontrollable pain, intractable vomiting, or other significant symptoms. The patient's condition is stable and appropriate for discharge. The patient will pursue further outpatient evaluation with a primary care physician or other designated or consulting physician as indicated in the discharge instructions. The patient expressed understanding and was agreeable with this plan. Diagnosis Primary Impression: Accidental medication error Qualified Codes: T50.901A - Poisoning by unspecified drugs, medicaments and biological substances, accidental (unintentional), initial encounter Referrals: Primary Care Physician as needed Psychiatrist 3 days Patient Instructions: General Instructions Additional Instructions: The patient was instructed regarding the importance of using a daily pillbox to avoid medication errors in the future. Med/Other Pt SpecificInfo: No Change to Meds Disposition: 01 DISCHARGE HOME Condition: Stable Shana Reagan MD August 28, 2017 05:45
[2017-08-28 06:23] LABS: AUTOMATED NEUTROPHIL # 3.1 TH/MM3 (1.8-7.7); BASOPHIL % 0.4 % (0.0-2.0); EOSINOPHIL % 0.7 % (0.0-4.0); HEMATOCRIT 35.7 % (39.0-51.0); HEMOGLOBIN 11.9 GM/DL (13.0-17.0); LYMPH % 36.7 % (9.0-44.0); LYMPHOCYTE # 1.9 TH/MM3 (1.0-4.8); MEAN CELL VOLUME 83.5 FL (80.0-100.0); MEAN CORPUSCULAR HEMOGLOBIN 27.9 PG (27.0-34.0); MEAN CORPUSCULAR HGB CONC 33.4 % (32.0-36.0); MEAN PLATELET VOLUME 8.8 FL (7.0-11.0); MONO % 4.6 % (0.0-8.0); MONOCYTE # 0.2 TH/MM3 (0-0.9); NEUT % 57.6 % (16.0-70.0); PLATELET COUNT 139 TH/MM3 (150-450); RED BLOOD COUNT 4.27 MIL/MM3 (4.50-5.90); RED CELL DISTRIBUTION WIDTH 16.2 % (11.6-17.2); WHITE BLOOD COUNT 5.3 TH/MM3 (4.0-11.0)
[2017-08-28 06:48] LABS: BILIRUBIN, URINE NEG (NEG); BLOOD, URINE NEG (NEG); GLUCOSE,URINE NEG (NEG); HYALINE CAST, URINE 2 /lpf (RARE); KETONE, URINE NEG (NEG); MUCUS URINE FEW /lpf (OCC); NITRITE,URINE NEG (NEG); URINE COLOR LIGHT-YELLOW (YELLW/STRAW); URINE LEUKOCYTE ESTERASE NEG (NEG)
[2017-08-28 06:53] LABS: ALT (GPT) 19 U/L (12-78); C-REACTIVE PROTEIN 0.39 MG/DL (0.00-0.30)
[2017-08-28 06:55] LABS: ALKALINE PHOSPHATASE 56 U/L (45-117); TOTAL BILIRUBIN ADULT 0.2 MG/DL (0.2-1.0); TOTAL PROTEIN 8.6 GM/DL (6.4-8.2)
[2017-08-28 07:01] LABS: ALBUMIN 4.4 GM/DL (3.4-5.0); AST (GOT) 25 U/L (15-37); BICARBONATE 27.7 MEQ/L (21.0-32.0); BLOOD UREA NITROGEN 7 MG/DL (7-18); CALCIUM 9.4 MG/DL (8.5-10.1); CHLORIDE 106 MEQ/L (98-107); GLOMERULAR FILTRATION RATE 91 ML/MIN (>89); GLUCOSE,RANDOM 138 MG/DL (74-106); SODIUM (NA) 142 MEQ/L (136-145)
[2017-08-28 07:32] VITALS: BP 114/67; PULSE 62; RESP 14; O2SAT 100
== END 2017-08-28 07:40 | disposition home or self-care (01) ==
LOC: NEPE 04:07
DX: T50.901A Poisoning by unspecified drugs, medicaments and biological substances, accidental (unintentional), initial encounter (principal)
CPT/HCPCS: 80053; 81001; 83690; 85025; 86140; 96360; 99284; J7040